=== PATIENT | male | born 1940 | race Caucasian/White ===

== ENCOUNTER → 2023-11-27 13:36 | Outpatient (REF) | payer OTHER, SELFPAY | LOC: WOUND 13:36 | PROVIDERS: ATTENDING PHYSICIAN Surgery; REFERRING PHYSICIAN Internal Medicine | DX: L97.412 Non-pressure chronic ulcer of right heel and midfoot with fat layer exposed (principal); M21.071 Valgus deformity, not elsewhere classified, right ankle; I73.9 Peripheral vascular disease, unspecified; I87.2 Venous insufficiency (chronic) (peripheral); R00.2 Palpitations; Z95.2 Presence of prosthetic heart valve; J84.112 Idiopathic pulmonary fibrosis; R73.09 Other abnormal glucose | CPT/HCPCS: 99204 ==

== ENCOUNTER → 2024-01-10 13:32 | Outpatient (REF) | payer OTHER, SELFPAY | LOC: RAD 13:32 | PROVIDERS: ATTENDING PHYSICIAN Podiatrist Foot Surgery; FAMILY PHYSICIAN Internal Medicine | DX: L97.512 Non-pressure chronic ulcer of other part of right foot with fat layer exposed (principal) | CPT/HCPCS: 93922; 93925 ==

== ENCOUNTER → 2024-01-18 14:06 | Outpatient (REF) | payer OTHER, SELFPAY | LOC: RAD 14:06 | PROVIDERS: ATTENDING PHYSICIAN Surgery; FAMILY PHYSICIAN Internal Medicine; REFERRING PHYSICIAN Orthopaedic Surgery | DX: L97.412 Non-pressure chronic ulcer of right heel and midfoot with fat layer exposed (principal); I87.2 Venous insufficiency (chronic) (peripheral) | CPT/HCPCS: 93971 ==

== ENCOUNTER → 2024-06-07 12:32 | Outpatient (REF) | payer OTHER, SELFPAY | LOC: RCS 12:32 | PROVIDERS: ATTENDING PHYSICIAN Internal Medicine Cardiovascular Disease; FAMILY PHYSICIAN Internal Medicine | DX: R00.1 Bradycardia, unspecified (principal); I49.3 Ventricular premature depolarization; Z95.2 Presence of prosthetic heart valve | CPT/HCPCS: 93306 ==

== ENCOUNTER 2024-09-23 18:19 | Inpatient (IN) | payer OTHER, SELFPAY ==
[2024-09-23] VITALS (9 sets, daily range): BP systolic 91–145; BP diastolic 54–78; PULSE 45–73; BMI 18.8
[2024-09-23 13:01] LABS: % Basophils 0.2 % (0-2); % Eosinophils 0.1 % (0-6); % Immature Granulocytes 0.6 % (0-0.5); % Lymphocytes 4.7 % (20.5-51.1); % Monocytes 10.4 % (1.7-9.3); Absolute Immature Granulocytes 0.1 10^3/uL (0-0.05); Absolute Lymphocytes 0.4 10^3/uL (1.2-3.4); Absolute Monocytes 0.9 10^3/uL (0.1-0.6); Absolute Neutrophils 7.4 10^3/uL (1.4-6.5); Hematocrit 37.6 % (39.0-52.0); Hemoglobin 12.9 g/dL (13.0-18.0); Mean Corp Hgb Conc. 34.3 g/dL (33.0-37.0); Mean Corpuscular Hgb 33.3 pg (27.0-31.0); Mean Corpuscular Volume 97.2 fL (80.0-94.0); Mean Platelet Volume 9.6 fL (7.4-10.4); Nucleated Red Blood Cells % 0 % (-); Platelet Count 159 10^3/uL (130-400); Red Blood Cell Count 3.87 10^6/uL (4.70-6.10); Red Cell Dist. Width 12.9 % (11.5-14.5); White Blood Cell Count 8.8 10^3/uL (4.8-10.8)
[2024-09-23 13:08] LABS: ALT (SGPT) 29 U/L (0-50); AST (SGOT) 68 U/L (17-59); Albumin 3.8 g/dl (3.5-5.0); Alkaline Phosphatase 157 U/L (38-126); Blood Urea Nitrogen 47 mg/dl (9-20); Calcium 9.2 mg/dl (8.4-10.2); Carbon Dioxide 27 mmol/L (22-30); Chloride 95 mmol/L (98-107); Estimated Creatinine Clearance 60 ml/min; Glucose 101 mg/dl (70-99); Potassium 4.4 mmol/L (3.5-5.1); Sodium 135 mmol/L (135-145); Total Bilirubin 0.9 mg/dl (0.2-1.3); Total Protein 7.4 g/dl (6.3-8.2); eGFR > 60.00
[2024-09-23 13:26] LABS: Urine Albumin Trace (Neg - Trace); Urine Bilirubin Negative (Negative); Urine Character Clear (Clear); Urine Color Yellow; Urine Glucose Negative (Negative); Urine Ketone 1+ (Negative); Urine Leukocyte Negative (Negative); Urine Nitrite Negative (Negative); Urine Occult Blood 2+ (Negative); Urine Specific Gravity 1.025 (<1.030); Urine Urobilinogen Negative (Neg - 1+)
[2024-09-23 13:37] LABS: Urine Red Blood Cell 16-20 /HPF (0-2)
--- NOTE | 2024-09-23 13:37 | ED.GENMED ---
History of Present Illness
General
Chief Complaint: Change in Mental Status
Source: patient and family (Nephew and his who are at the bedside)
Exam Limitations: none
Time Seen by Provider: 09/23/24 12:48
Nursing documentation reviewed up to this point in time: agreed with
History of Present Illness
History of Present Illness:
The patient is a pleasant 83-year-old man with a past medical history of Alzheimer's dementia who lives alone in an apartment. He is here with his nephew and his nephew's who reports that they check up on him at least every other day and
supply him with food. They report that he was never and has no children. They report that over the last 3 months, he is greatly declined, especially over the last few weeks. They report that he is fallen twice within 1 week. The first
fall was this past which was 5 days ago. They report that the second fall occurred sometime last night. They report that they visited him yesterday evening at around 7:30 PM. When they went to check up on him today around 11 AM, he had
fallen backwards in the bathtub. Is unclear how long he laid in the bathtub. The patient does not remember falling. The patient is a poor historian. Patient has bruising around his right forehead area and periorbital area which the family
reports happened from the fall 5 days ago. However, they report that he now has left shoulder pain and bruising of his left flank area which are new since the fall overnight. The patient is not on any anticoagulation. He is on 81 mg aspirin. The
patient reports a mild headache and back pain. He denies neck pain. He denies weakness and numbness of arms and legs. Family reports that he just seems overall more weak than normal. Denies pelvic and hip pain. Patient has bruising of his right
knee which the family reports occurred about 5 days ago. Patient has been able to walk as normal. Family reports that he uses a cane to get around. Additionally, the family reports that when they found him in the bathtub this morning, they
noticed blood at the back of the toilet seat as well as blood in his underwear. Patient also has a small appearing sacral ulcer that looks like it may have recently bled
Past History
Past History
ED Past Medical History: HTN
ED Past Surgical History: Cardiac and Other (Hernia repair)
Social History
Tobacco: Non-smoker
Alcohol: None
Drug: None
Personal: Single
Living: alone
Employment: Retired
Family History
Family History: Other
Review of Systems
Review of Systems
Allergies reviewed?: Yes
All Other Systems: ROS reviewed and negative except as documented in HPI and ROS
Constitutional: Reports weight loss and fatigue
EENT: Reports no symptoms
Respiratory: Reports no symptoms
Cardiac: Reports no symptoms
ABD/GI: Reports bloody stools (Possible rectal bleeding) and other (Left flank pain)
: Reports no symptoms
Musculoskeletal: Reports joint pain (Left shoulder pain), joint swelling (Ecchymotic and mild swelling of right patellar area), muscle stiffness and back pain
Skin: Reports other (Skin breakdown sacral decubitus area)
Neurological: Reports weakness (Generalized weakness)
Endocrine: Reports no symptoms
Hematologic/Lymphatic: Reports bruising (Multiple areas of bruising on posterior thoracic area, right knee and left flank)
Psychiatric: Reports no symptoms
Phy Exam
Physical Exam
Physical Exam:
Physical Exam
General: No apparent distress. Awake, alert and conversational. Ecchymotic right frontal scalp and right periorbital area
Neck: supple. no meningeal signs. Nontender C-spine. Dry mucous membrane
Heart: s1/s2 regular rate and rhythm, multiple ecchymoses of thoracic back. Mild thoracic spine tenderness
Lungs: no acute respiratory distress. clear bilaterally
Abdomen: Soft and nondistended. Left flank tenderness and left flank hematoma. On rectal exam, stool is pinkish and Hemoccult positive
Neuro: alert and oriented to self and place. Disoriented to year
Skin: Sacral decubitus ulcer which may have recently bled
Psychiatric: well kept. interactive and cooperative
Extremities: Full range of movement of upper and lower extremities. Pelvis and hips nontender. Mild ecchymoses of medial right patella but full range of movement of right knee. Mild discomfort when I fully extend left
shoulder.
Course
Orders/Labs/Results
Orders:
Orders
09/23/24 12:47
CBC/With Diff [Complete Blood Count/With Diff] Urgent
CMP [Comprehensive Metabolic Panel] Urgent
Creatine Phosphokinase Urgent
Comment: ADD ON
09/23/24 12:49
EKG [Electrocardiogram (*1)] Urgent
Reason for Study: Syncope
09/23/24 12:50
EKG- Treatment ONCE
09/23/24 12:52
CT Head W/o Iv Contrast Urgent
Comment:
Reason For Exam: change in mental status/ head injury
09/23/24 13:08
Electrocardiogram (*1) Urgent
Reason for Study: Fatigue / Weakness
EKG- Treatment ONCE
09/23/24 13:09
Urinalysis Reflex To Culture Urgent
Date Specimen was Collected: 09/23/24
Time Specimen was Collected: 13:08
Urine Microscopic Reflex Cult Urgent
09/23/24 13:37
CT Chest/abd/pel W Iv Cont Urgent
Reason For Exam: fall backwards into tub, thoracic pain
09/23/24 13:39
0.9% Sodium Chloride 1000 ml [Nss] 1,000 ml IV BOLUS
09/23/24 13:40
CR Shoulder, Trauma - Left Urgent
Reason For Exam: pain, fall
09/23/24 13:53
Knee, Right 4 or More Views [CR Knee- Right 4 Or More View*] Urgent
Comment:
Reason For Exam: r patella pain
09/23/24 13:54
Add On- LAB Urgent
Tests Added?: total CK
09/23/24 17:39
Admit/Transfer Patient As Directed
Co-Sign Provider:
Level of Care: Inpatient admission
Assign to:: Medical/Surgical
Physician / Group: Azeb
Diagnosis: Rhabdo
Reason for Hospitalization: IVFs
Expected length of stay greater than two midnights?: Yes
ELOS- Estimated Length of Stay in days: 3
I certify the patient meets the requirements for IP care: Yes
PRN Pain Medication Management As Directed
May give lesser potent ordered pain med per pt: Yes
preference::
Protocol:: Medication orders for pain may be administered in a
manner that supports deferring to patient preference
when the pt is:
- Requesting an ordered lesser potent pain medication.
Least to most potent pain medications are defined
as: acetaminophen < NSAID < tramadol < opioids
(morphine, oxycodone, hydromorphone).
- Requesting a lesser dose of the same medication IF
ORDERED.
- Requesting a less intrusive route of administration
if both routes are prescribed by the provider (PO <
IV).
09/23/24 17:40
Code Status As Directed
Resuscitation Status: Do not resuscitate
Reached after discussion with pt or family/Healthcare POA: Yes
DNR Bracelet Application ONCE
Abnormal Lab Results
09/23/24 09/23/24
12:47 13:09
RBC 3.87 L 10^6/uL
(4.70-6.10)
Hgb 12.9 L g/dL
(13.0-18.0)
Hct 37.6 L %
(39.0-52.0)
MCV 97.2 H fL
(80.0-94.0)
MCH 33.3 H pg
(27.0-31.0)
Abs Immat Gran (auto) 0.1 H 10^3/uL
(0-0.05)
Absolute Neuts (auto) 7.4 H 10^3/uL
(1.4-6.5)
Absolute Lymphs (auto) 0.4 L 10^3/uL
(1.2-3.4)
Absolute Monos (auto) 0.9 H 10^3/uL
(0.1-0.6)
Immature Gran % 0.6 H %
(0-0.5)
Neutrophils % 84.0 H %
(42.2-75.2)
Lymphocytes % 4.7 L %
(20.5-51.1)
Monocytes % 10.4 H %
(1.7-9.3)
Chloride 95 L mmol/L
(98-107)
BUN 47 H mg/dl
(9-20)
Glucose 101 H mg/dl
(70-99)
AST 68 H U/L
(17-59)
Alkaline Phosphatase 157 H U/L
(38-126)
Creatine Kinase 858 H U/L
(55-170)
Urine Ketones 1+ A
(Negative)
Ur Occult Blood Reflex 2+ A
(Negative)
Urine RBC 16-20 A /HPF
(0-2)
Urine Bacteria (Reflex) Few A
(Negative)
09/23/24 12:47
09/23/24 12:47
Vital Signs
Initial and Last Documented VS:
Initial Vital Signs
Temp Pulse Resp BP Pulse Ox
97.0 F 78 18 126/54 98
09/23/24 12:24 09/23/24 12:24 09/23/24 12:24 09/23/24 12:24 09/23/24 12:24
Last Documented Vital Signs
Temp Pulse Resp BP Pulse Ox
97.0 F 72 16 132/65 97
09/23/24 12:24 09/23/24 18:30 09/23/24 18:30 09/23/24 18:00 09/23/24 17:35
MDM/Problems Addressed
Differential Diagnosis Includes:
Acute rhabdomyolysis, acute dehydration, intracranial subdural hematoma, UTI
MDM/Problems Addressed:
Patient presents with acute on chronic generalized weakness and cognitive decline.
Chronic conditions affecting care:
Alzheimer's dementia
Acute Exacerbation and/or Progression of Chronic Illness:
Patient may have progression of chronic Alzheimer's dementia
Acute Exacerbation and/or Progression of Chronic Illness: Other (Alzheimer's dementia)
*Radiology
Radiology exam reviewed: preliminary read by ED provider (Right knee x-ray reviewed by me. No acute fracture seen by me of right knee. Left shoulder x-ray reviewed by me. No acute fracture of left shoulder seen by me) and radiology read reviewed
*Pulse Oximetry
Patient hypoxic: no
*EKG
Interpreted by ED Provider?: Yes
Interpretation: abnormal
Comparison EKG: no comparison EKG present
Rate: normal
Rhythm: sinus and PVC's
Elmo: left axis deviation
QRS Pattern: normal QRS
Ischemia: non-specific ST changes
*Parking Technician Interpretation
Rate: normal
Interpretation: normal
Rhythm: sinus
*Critical Care Note
Total Time (30-74mins, 75-104mins- exclusive of procedures): Not Applicable
ED Attending Note
-
Portions of this chart may have been created with voice recognition software.� Occasional wrong word or��sound alike� substitutions may have occurred due to the inherent limitations of voice recognition software.
Discharge Plan
Departure
Patient Disposition: Admit
Date of Disposition: 09/23/24
Time of Disposition: 16:46
Admit to: Med/Surg
Presentation/result/management discussed w/ accepting MD/DO: Hospitalist
Patient with high blood pressure during this ER visit?: Yes
Condition: Good
Covid-19: Not Applicable
Discharge Problem:
Adult failure to thrive, Frequent falls, Possible GI bleed, Compression fracture of thoracic vertebra, Acute rhabdomyolysis
Interventions
Interventions:
*Risk Screen - Suicide Last Done: 09/23/24 12:24
*General Assessment Last Done: 09/23/24 12:24
*Neglect/Abuse Screening Last Done: 09/23/24 12:24
*ED COVID-19 Vaccine History Last Done: 09/23/24 12:37
ED- Neurological Assessment Last Done: 09/23/24 12:37
ED- Cardiac Assessment Last Done: 09/23/24 12:37
[2024-09-23 13:38] LABS: Urine Bacteria Few (Negative)
[2024-09-23] MEDS: NSS 1000 IV ×2 (14:13→20:41)
[2024-09-23 14:17] LABS: Creatine Phosphokinase 858 U/L (55-170)
--- NOTE | 2024-09-23 17:46 | HPS.HSE ---
Family Physician
-
Family Physician: Ehsan Addison
Chief Complaint
-
Fall
History of Present Illness
Patient is an 83 y/o male past medial history of pulmonary fibrosis, coronary artery calcification, hypertension, hyperlipidemia and Alzheimer's Dementia who presents following a fall. Patient is unable to provide any history therefore history is
obtained from family at the bedside. Family notes patient has had a significant decline over the past few weeks. They spend most of the day with the patient yesterday. They called later in the evening around 8PM and patient was in his usual
state. They called to check on him this morning around 10AM this morning, and he didn't answer. They arrived at the house around 11AM and found him lying in the bathtub. They noted a small amount of blood on his underwear and the back of the
toilet. Family notes patient also had a fall on as well which resulting in bruising to his right forehead/temporal region.
Medical History
Past Medical History
Past Medical History: Reports Other
Additional Past Medical History:
Alzheimer's Dementia
Idiopathetic Pulmonary Fibrosis
Coronary Artery Calcification
Essential Hypertension
Hyperlipidemia
BPH
Past Surgical History: Reports Other
Additional Past Surgical History:
Transcatheter Aortic Valve Replacement
Hernia Repair
Open Heart Surgery following punctured pericardium during cardiac catheterization
Social History
Tobacco: Non-smoker
Alcohol: None
Living: Alone
Family History
Family History: Not pertinent
Allergies / Home Medications
Allergies reflects when Allergies were last updated in [employer]..
Home Medications with original date entered in [employer].
Allergy/Medication List:
Allergies
Allergy/AdvReac Type Severity Reaction Status Date / Time
Penicillins Allergy Unknown Verified 09/23/24 12:24
Home Medications
aspirin 81 mg tablet,delayed release 81 mg PO DAILY Blood Clot Prevention/Tx 07/24/23
cholecalciferol (vitamin D3) 25 mcg (1,000 unit) tablet (Vitamin D3) 25 mcg PO DAILY Supplement 07/24/23
pravastatin 20 mg tablet 20 mg PO DAILY High Cholesterol 07/24/23
Prevagen 1 cap PO DAILY 09/23/24
therapeutic multivitamin 1 tab PO DAILY 09/23/24
Review of Systems
-
Unable to obtain full review of systems at this time due to: Dementia
Physical Exam
Vital Signs
Vital Signs
Temp Pulse Resp BP Pulse Ox
97.0 F 76 26 137/78 98
09/23/24 12:24 09/23/24 14:45 09/23/24 14:45 09/23/24 14:12 09/23/24 14:15
Physical Exam
General: Comfortable and Conversant
HEENT: Anicteric and Other (Old bruising right forehead/temporal area)
Respiratory: Other (Fine rales throughout)
Cardiac: S1/S2 and Regular Rhythm
GI: Soft and Non Tender
Musculoskeletal: No Clubbing, No Cyanosis and No Edema
Skin: Warm, Dry and Other (Bruising left shoulder blade, and right knee)
Neuro: Awake and Alert; No Oriented (After several attempts patient was able to tell me he is at [facility]; However he told me the year was 2015 and identified 'the kam from [place]' as the president)
Psych: Calm
Laboratory Results
-
09/23/24 12:47
09/23/24 12:47
Laboratory Results
Total Bilirubin 0.9 mg/dl (0.2-1.3) 09/23/24 12:47
AST 68 U/L (17-59) H 09/23/24 12:47
ALT 29 U/L (0-50) 09/23/24 12:47
Alkaline Phosphatase 157 U/L (38-126) H 09/23/24 12:47
Data Reviewed
-
Lab Data: Labs Reviewed by me
Impression/Plan
-
Frequent Falls with Mild Rhabdomyolysis
-Continue IVFs
-Recheck CPK in AM
-Check Orthostatic VS
-Consult PT/OT
'Blood in Underwear'
-ED staff noted small sacral wound which appeared to have bleed recently. This is the likely source
-ED staff also noted pink stool which was heme-positive
-Hold on GI consult for now
-Monitor Hgb
-Heme-Test Stool
Alzheimer's Dementia
-Patient likely require more help at home or higher level of care
-Consult Case Management
-Monitor for mood/behavior changes during hospitalization
Idiopathetic Pulmonary Fibrosis
-Stable
Coronary Artery Calcification
-Continue aspirin
Hyperlipidemia
-Continue pravastatin
BPH
-Flomax recently stopped by PCP
-Monitor for retention
DVT proph: SCDs
Code Status: DNR
--- NOTE | 2024-09-23 18:36 | W.PN.UPDATE ---
Update Note
Progress Note Update
This is an addendum to the H&P written by Sahra Garcia on 09/23/2024.� Patient seen and examined independently with PA.
83-year-old male past medical history of aortic valve replacement, cardiac catheterization complicated by punctured pericardium, Alzheimer's dementia, hypertension, pulmonary fibrosis, BPH, hyperlipidemia, presenting after being found in the bathtub
today.� He has fallen twice in the past week.� He has been having progressive memory impairment over the past several months.
He was also noted to have blood in his underwear on the toilet today.� On rectal examination by ER he had pinkish stool was Hemoccult positive.� He has small sacral decubitus ulcer.
Vital signs unremarkable.� Labs show creatinine kinase of 858.� Labs otherwise unremarkable.� Urinalysis unremarkable.� IV fluids.� Likely worsening falls and memory impairment from worsening dementia.�
Check orthostatic vital signs.� Wound care consulted.� Monitor for further rectal bleeding and anemia.� If further bleeding and anemia will require GI.� Wound care consulted.� PT/OT.
[2024-09-24 06:00] VITALS: BMI 18.2
[2024-09-24 08:10] VITALS: BP 127/68
[2024-09-24] MEDS: PRAVACHOL 20 MG PO (08:13)
[2024-09-24] MEDS: ASPIR LOW (ENTERIC COATED) 81 MG PO (08:13)
--- NOTE | 2024-09-24 08:37 | W.PN.HOSP.TC ---
Today's Communication/Plan
-
Echocardiogram with worsened MR -- consult cardiology
Pulm consult given RV dilation on echo
CPK improved with IV fluids
Dietary and speech consultations
Assessment / Plan
Assessment / Plan
Physical Exam
General: Not in acute distress
HEENT: Normocephalic
Respiratory: Fine rales bilaterally
Cardiac: S1/S2 and Regular Rhythm
GI: Soft and Non Tender. Positive bowel sounds.
Musculoskeletal: No Cyanosis and No Edema
Skin: Warm, Dry
Neuro: Awake and Alert; Confused.
Psych: Calm

CT Chest/abd/pel W Iv Cont (as per radiologist's report)
'IMPRESSION:
1. Trace left pleural effusion.
2. Mild T10 and T12 compression fractures, both new from 04/05/2023 and likely acute/subacute. Recommend correlation for any point tenderness in this region.
3. No other significant acute abnormality identified in the chest, abdomen or pelvis, as described above. Stable changes of chronic interstitial lung disease.
4. Moderate diffuse colonic stool burden may reflect constipation.'
Echocardiogram (as per linderman operator's report)
'CONCLUSIONS
Normal left ventricular size and systolic function without regional wall motion
abnormalities. LVEF 60-65%.
Right ventricle is mildly dilated with normal systolic function.
Biatrial enlargement.
Bileaflet mitral valve prolapse with moderate mitral regurgitation.
Well-seated TAVR with normal function (peak/mean 19/8 mmHg).
Mild to moderate tricuspid regurgitation. Estimated PASP 44 mmHg.
Interatrial septum bowed to the right consistent with elevated left atrial
pressure.
Compared to prior echocardiogram on 06/07/2024, mitral regurgitation has
increased in severity. It was previously mild to moderate and is now solidly
moderate. Aortic valve gradients are stable. PASP has increased from 28 mmHg
to 44 mmHg. There is now evidence of elevated left atrial pressure.'

Assessment/Plan
83-year-old male past medical history of aortic valve replacement, cardiac catheterization complicated by punctured pericardium, Alzheimer's dementia, hypertension, pulmonary fibrosis, BPH, hyperlipidemia, presented after being found in the bathtub.
He was reported to have fallen twice in the past week. He has been having progressive memory impairment over the past several months.
He was also noted to have blood in his underwear on the toilet today. On rectal examination by ER he had pinkish stool was Hemoccult positive. He has small sacral decubitus ulcer.
Vital signs unremarkable. Labs show creatinine kinase of 858. Labs otherwise unremarkable. Urinalysis unremarkable. IV fluids. Likely worsening falls and memory impairment from worsening dementia.
Check orthostatic vital signs. Wound care consulted. Monitor for further rectal bleeding and anemia. If further bleeding and anemia will require GI. Wound care consulted. PT/OT.
Frequent Falls with Mild Rhabdomyolysis
Concern for Orthostatic Hypotension -- likely positive with significant drop between supine and sitting positions
-Patient was given intravenous fluids
-Recheck CPK in AM
-Checked Orthostatic VS -- likely positive with significant drop between supine and sitting positions
-Consult PT/OT
-Echo noted, as above
-Tele
'Blood in Underwear'
-ED staff noted small sacral wound which appeared to have bleed recently. This is the likely source
-ED staff also noted pink stool which was heme-positive
-Hold on GI consult for now
-Monitor Hgb
-Heme-Test Stool
Mild RV Dilation on September 2024 Echocardiogram
-Possibly for pulmonary fibrosis
-Consult pulmonary, appreciate evaluation and recommendations
Biatrial Enlargement
Mitral Regurgitation
Elevated left atrial pressure
-Worsened on September 2024 compared to previous
-Consult cardiology, appreciate their evaluation and recommendations
History of TAVR
History of cardiac catheterization complicated by punctured pericardium
Constipation on CT Imaging from September 2024 Hospitalization
-Bowel regimen: Miralax daily
-Dulcolax suppository once now
Macrocytic Anemia
Thrombocytopenia
-Monitor CBC
-Check iron studies, vitamin B12 level
Compression Fractures on CT Imaging from September 2024 Hospitalization
-PT/OT
Alzheimer's Dementia
-Patient likely require more help at home or higher level of care
-Consult Case Management
-Monitor for mood/behavior changes during hospitalization
Idiopathetic Pulmonary Fibrosis
-Stable
Coronary Artery Calcification
-Continue aspirin
Hypertension
Hyperlipidemia
-Continue pravastatin
BPH
-Flomax recently stopped by PCP
-Monitor for retention
History of Asymptomatic Hyponatremia
History of Total knee arthroplasty
History of likely osteomyelitis of right fifth toe/surrounding cellulitis
History of MRSA
DVT proph: SCDs and Lovenox.
Code Status: DNR
Anticipated Discharge: > 48 hours
Subjective/Interval History
-
Date of Service: September 24, 2024
Patient was seen and examined. Patient appeared confused, and did not want to eat, as per patient's nurse.
Objective Data
-
Labs:
Laboratory Results
09/24/24
07:57
WBC Pending
Hgb Pending
Hct Pending
Plt Count Pending
Sodium Pending
Potassium Pending
Chloride Pending
Carbon Dioxide Pending
BUN Pending
Creatinine Pending
Glucose Pending
Calcium Pending
Vital Signs:
Vital Signs
Temp Pulse Resp BP Pulse Ox
98.1 F 64 17 127/68 94
09/24/24 08:10 09/24/24 08:10 09/24/24 08:10 09/24/24 08:10 09/24/24 08:10
I&O
09/23/24 09/24/24 09/25/24
06:59 06:59 06:59
Intake Total 1120 / 1120
Output Total 600 / 600
Balance 520 / 520
[2024-09-24 08:51] LABS: Hematocrit 34.9 % (39.0-52.0); Mean Corp Hgb Conc. 34.4 g/dL (33.0-37.0); Mean Corpuscular Hgb 33.3 pg (27.0-31.0); Mean Corpuscular Volume 96.9 fL (80.0-94.0); Mean Platelet Volume 9.4 fL (7.4-10.4); Platelet Count 129 10^3/uL (130-400); Red Cell Dist. Width 12.8 % (11.5-14.5); White Blood Cell Count 7.5 10^3/uL (4.8-10.8)
[2024-09-24 09:09] LABS: Blood Urea Nitrogen 37 mg/dl (9-20); Calcium 8.5 mg/dl (8.4-10.2); Carbon Dioxide 24 mmol/L (22-30); Chloride 101 mmol/L (98-107); Creatine Phosphokinase 411 U/L (55-170); Estimated Creatinine Clearance 79 ml/min; Glucose 83 mg/dl (70-99); Magnesium 1.7 mg/dl (1.6-2.3); Phosphorus 3.4 mg/dl (2.5-4.5); Potassium 4.2 mmol/L (3.5-5.1); Sodium 134 mmol/L (135-145); eGFR > 60.00
[2024-09-24 10:40] VITALS: BP 143/64; BP 145/70; PULSE 75; O2SAT 90
[2024-09-24 10:54] VITALS: BP 143/54
[2024-09-24 11:43] VITALS: BMI 18.2
--- NOTE | 2024-09-24 11:46 | WOUNDNOTE ---
L MEDIAL LOWER LEG
--- NOTE | 2024-09-24 11:47 | WOUNDNOTE ---
R SIDE OF FACE
--- NOTE | 2024-09-24 11:50 | WOUNDNOTE ---
WO RN note: Patient admitted with fall and failure to thrive.
See H&P for complete history.
PMH: sacral PI's, b/l knee replacements, Alzheimers, HTN, valve repair.
Wound Location and type/assessment: Patient admitted with: cluster of suspected stage 2 vs 3 PI on inner buttocks. Patient assessed along with PT who attempted to get patient to ambulate to chair. Patient challenging PT and refused walking to
chair. Able to stand up for assessment of buttocks but patient tried to bat my hand away when changing dressing. Nurse reports patient can turn self in bed but unsure if stays on sides.
Appetite: Fair
Pressure redistribution devices in place:Called Bed tech to switch bed to [facility] air bed while pt down at test.
Plan: Inner Buttocks: cleaned with saline, smear of honey gel(to start tomorrow) to open ulcers followed by silicone foam change daily. Called [facility] for honey gel and brought to .
Will confirm orders with hospitalist and updated nurse.
Updated care plan and will follow as needed.
Note to case management of equipment requested for discharge: air mattress if SNF.
Recommend follow up at wound care center upon discharge.
--- NOTE | 2024-09-24 12:34 | CM ---
CM reviewed chart, patient with confusion, call placed to patients Wally dorado, to complete initial assessment. Patient resides independently in an apartment, nephew and nephews will check on patient regularly. Per nephew, patient moved to
[facility] [address] from [place], has previously been two SNF in [place] after knee replacements, unsure where. Patients PCP Ehsan Addison, pharmacy [facility]. Per nephew, patient has been falling more, cognitively declining. Nephew agreeable to rehab
for patient, would like patient to return home after rehab with services. Wally requesting referral to [facility], requesting additional facilities emailed to him to review with family, will email to [email or web address]. CM explained once facility
found, will need insurance authorization, will need to check if [facility] accepts patients insurance. CM will continue to follow for all discharge planning needs.
Plan; SNF pending accepting facility, will need insurance auth.
[2024-09-24 15:24] VITALS: BP 104/55
[2024-09-24] MEDS: DULCOLAX 5 MG PO (16:41)
[2024-09-24] MEDS: MIRALAX 17 GRAMS PO (16:41)
--- NOTE | 2024-09-24 17:17 | CON.CAR ---
Addendum entered and electronically signed by Shiva Son MD 09/24/24 17:42:
I saw and examined the patient.
The BOW MAKER CUSTOM's note was reviewed and I agree with the note.
Comment:
83-year-old male (formerly followed by Dr. Ferro, now following with Dr. Dueñas), with coronary artery calcification, pulmonary fibrosis, hypertension, dyslipidemia, severe aortic stenosis s/p TAVR, MVP with mitral regurgitation, and
Alzheimer's dementia who presented after a fall and received IV fluids for rhabdo myolysis. We were consulted for progression of mitral regurgitation (previously mild to moderate, now moderate) on today's echo. PASP has also increased to 45 mmHg
from 28 mmHg. On interview he is confused but does not note any lower extremity edema or shortness of breath. Exam is notable for regular rate and rhythm with a soft systolic murmur. He has no lower extremity edema, lungs are clear to
auscultation bilaterally, and he has no JVD. Labs are notable for creatinine 0.6 and sodium 134. Telemetry reveals PVCs with occasional bigeminy. He had mildly positive orthostatic vital signs earlier today. We will check a full set of
orthostatics. He appears euvolemic at this time and I would not recommend any diuresis. I suspect that as his fluid reequilibrated's, his PASP will come down and MR will decrease. He already has follow-up scheduled with our office on 10/15/[address] Dueñas. Cardiology will follow on an as-needed basis during this admission. Please reach out with further questions or concerns.
Original Note:
Consultation
Consultation Request
Date/Time Consultation Requested: 09/24/2024 16:30
Date/Time Consultation Performed: 09/24/2024 16:50
Requesting Provider: Dr. Rodriguez
Performing Provider: SANDEEP Silvestre for Dr. Son
Reason for Consultation: Mitral regurgitation
Medical History
-
Chief Complaint: Fall
History of Present Illness:
Milly Dowell is an 83-year-old male (formerly followed by Dr. Ferro, now following with Dr. Dueñas), with coronary artery calcification, pulmonary fibrosis, hypertension, dyslipidemia, severe aortic stenosis s/p TAVR, MVP with mitral
regurgitation, and Alzheimer's dementia who presented after a fall. He has had a significant decline over the past 3-4 weeks. He has had multiple falls. This admission was prompted by his family finding him lying in the bathtub. Last week, he
was found on the floor of his bedroom. Per his nephew the voices told him to lay down. He denies chest pain, shortness of breath, and dizziness at the time of this consultation. He he is fairly confused on exam.
Past Medical History
Past Medical History: HTN, Hypercholesterolemia, Valvular Disease (Serial stenosis s/p TAVR, MVP with MR), Psychiatric (Alzheimer's dementia) and Other (Pulmonary fibrosis)
Past Surgical History: Orthopedic and Other (Open heart surgery after perforation following EP procedure [2001])
Social History
Tobacco: Non-Smoker
Alcohol: None
Drug: None
Living: Alone
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
Family History
Family History: Unable to Obtain
Allergies / Home Medications
Allergy/AdvReac Type Severity Reaction Status Date / Time
Penicillins Allergy Unknown Verified 09/23/24 12:24
�Medication �Instructions �Recorded �Confirmed �Type
aspirin 81 mg tablet,delayed 81 mg PO DAILY Blood Clot 07/24/23 09/23/24 History
release Prevention/Tx
cholecalciferol (vitamin D3) 25 25 mcg PO DAILY Supplement 07/24/23 09/23/24 History
mcg (1,000 unit) tablet (Vitamin
D3)
pravastatin 20 mg tablet 20 mg PO DAILY High Cholesterol 07/24/23 09/23/24 History
Prevagen 1 cap PO DAILY 09/23/24 09/23/24 History
therapeutic multivitamin 1 tab PO DAILY 09/23/24 09/23/24 History
Review of Systems
-
Unable to obtain full review of systems at this time due to: Dementia
Physical Exam
Vital Signs
Temp Pulse Resp BP Pulse Ox
97.9 F 74 16 104/55 96
09/24/24 15:24 09/24/24 15:24 09/24/24 15:24 09/24/24 15:24 09/24/24 15:24
Lab Results
09/24/24 07:57
09/24/24 07:57
Physical Exam
General: Well Developed and No Apparent Distress
HEENT: Other (Bruising to right temporal area)
Respiratory: Clear and Non Labored Respirations
Cardiac: S1/S2, Regular Rhythm and Murmur (III/)
Breast: Deferred by me
GI: Soft, Non Tender, Non Distended and Normal Bowel Sounds
Rectal: Deferred by Provider
Genito-urinary: No Costovertebral Tender
Musculoskeletal: No Clubbing, No Cyanosis and No Edema
Skin: Warm and Dry
Neuro: Awake, Alert and Oriented (Himself and place)
Hematologic/Lymphatic: No Lymphadenopathy
Psych: Other (Restless)
Impression / Plan
-
BACKGROUND: 83M with coronary artery calcification, pulmonary fibrosis, hypertension, dyslipidemia, severe aortic stenosis s/p TAVR, MVP with mitral regurgitation, and Alzheimer's dementia who presented after a fall. He has had a significant
decline over the past 3-4 weeks. Cardiology has been consulted for worsened MR on TTE.
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
IMPRESSION/PLAN:
Multiple falls with mild rhabdomyolysis, per primary
-Consider orthostatic vital signs, last evening's vitals do not have a standing blood pressure
Worsened Alzheimer's dementia with hallucination, per primary service
MVP with moderate mitral regurgitation
-He does not appear volume overloaded on exam
-Denies shortness of breath
Idiopathic pulmonary fibrosis with bronchiectasis, PASP 44 mmHg on TTE (increased from 28 mmHg)
Severe aortic stenosis, s/p TAVR (Grecia, 2019), stable on most recent echocardiogram
Sinus bradycardia, not on AV mariam agents
Coronary artery calcification, on aspirin and pravastatin
EP study, complicated by perforation, led to emergent open heart surgery (Grecia, 2001)
SUBJECTIVE:
As above.
DATA:
Transthoracic echocardiogram, 09/24/2024:
CONCLUSIONS
Normal left ventricular size and systolic function without regional wall motion
abnormalities. LVEF 60-65%.
Right ventricle is mildly dilated with normal systolic function.
Biatrial enlargement.
Bileaflet mitral valve prolapse with moderate mitral regurgitation.
Well-seated TAVR with normal function (peak/mean 19/8 mmHg).
Mild to moderate tricuspid regurgitation. Estimated PASP 44 mmHg.
Interatrial septum bowed to the right consistent with elevated left atrial
pressure.
Compared to prior echocardiogram on 06/07/2024, mitral regurgitation has
increased in severity. It was previously mild to moderate and is now solidly
moderate. Aortic valve gradients are stable. PASP has increased from 28 mmHg
to 44 mmHg. There is now evidence of elevated left atrial pressure.
Data Reviewed
-
EKG: Report Reviewed by me (Sinus rhythm with PVCs, rate 64)
Medical Tests (Nuc Med, Echo etc): Report Reviewed by me (Prior echocardiogram as above)
Labs: Labs Reviewed by me
Old Records: Reviewed
[2024-09-24] MEDS: LOVENOX 40 MG SC (17:34)
[2024-09-24 19:00] VITALS: BP 105/53
[2024-09-24 23:10] VITALS: BP 141/72
[2024-09-25] VITALS (9 sets, daily range): BP systolic 102–160; BP diastolic 54–86; PULSE 43–58; O2SAT 96; BMI 18.3
--- NOTE | 2024-09-25 07:54 | W.PN.HOSP.TC ---
Today's Communication/Plan
-
Appreciate pulmonary evaluation
PT/OT
SNF placement pending
Assessment / Plan
Assessment / Plan
Physical Exam
General: Not in acute distress
HEENT: Normocephalic
Respiratory: Fine rales bilaterally
Cardiac: S1/S2 and Regular Rhythm
GI: Soft and Non Tender. Positive bowel sounds.
Musculoskeletal: No Cyanosis and No Edema
Skin: Warm, Dry
Neuro: Awake and Alert; Confused.
Psych: Calm

CT Chest/abd/pel W Iv Cont (as per radiologist's report)
'IMPRESSION:
1. Trace left pleural effusion.
2. Mild T10 and T12 compression fractures, both new from 04/05/2023 and likely acute/subacute. Recommend correlation for any point tenderness in this region.
3. No other significant acute abnormality identified in the chest, abdomen or pelvis, as described above. Stable changes of chronic interstitial lung disease.
4. Moderate diffuse colonic stool burden may reflect constipation.'
Echocardiogram (as per asphalt roller person's report)
'CONCLUSIONS
Normal left ventricular size and systolic function without regional wall motion
abnormalities. LVEF 60-65%.
Right ventricle is mildly dilated with normal systolic function.
Biatrial enlargement.
Bileaflet mitral valve prolapse with moderate mitral regurgitation.
Well-seated TAVR with normal function (peak/mean 19/8 mmHg).
Mild to moderate tricuspid regurgitation. Estimated PASP 44 mmHg.
Interatrial septum bowed to the right consistent with elevated left atrial
pressure.
Compared to prior echocardiogram on 06/07/2024, mitral regurgitation has
increased in severity. It was previously mild to moderate and is now solidly
moderate. Aortic valve gradients are stable. PASP has increased from 28 mmHg
to 44 mmHg. There is now evidence of elevated left atrial pressure.'

Assessment/Plan
83-year-old male past medical history of aortic valve replacement, cardiac catheterization complicated by punctured pericardium, Alzheimer's dementia, hypertension, pulmonary fibrosis, BPH, hyperlipidemia, presented after being found in the bathtub.
He was reported to have fallen twice in the past week. He has been having progressive memory impairment over the past several months.
He was also noted to have blood in his underwear on the toilet today. On rectal examination by ER he had pinkish stool was Hemoccult positive. He has small sacral decubitus ulcer.
Vital signs unremarkable. Labs show creatinine kinase of 858. Labs otherwise unremarkable. Urinalysis unremarkable. IV fluids. Likely worsening falls and memory impairment from worsening dementia.
Check orthostatic vital signs. Wound care consulted. Monitor for further rectal bleeding and anemia. If further bleeding and anemia will require GI. Wound care consulted. PT/OT.
Frequent Falls with Mild Non-Traumatic Rhabdomyolysis
Concern for Orthostatic Hypotension -- RESOLVED
-Patient was given intravenous fluids
-Recheck CPK in AM --> CPK improving
-PT/OT
-Echo noted, as above
-Tele monitor
'Blood in Underwear'
-ED staff noted small sacral wound which appeared to have bleed recently. This is the likely source
-ED staff also noted pink stool which was heme-positive
-Hold on GI consult for now
-Monitor Hgb -- has been stable
-Heme-Test Stool still pending
Mild RV Dilation on September 2024 Echocardiogram
-Possibly for pulmonary fibrosis
-Consult pulmonary, appreciate evaluation and recommendations
Biatrial Enlargement
Mitral Regurgitation
Elevated left atrial pressure
-Worsened on September 2024 compared to previous
-Consult cardiology, appreciate their evaluation and recommendations: patient does not look volume overloaded, regarding patient's echocardiogram, the change in his MR was relatively mild, probably from extra fluids from
rhabdomyolysis
-Echo will need to be rechecked echo again at his next visit with Dr. Dueñas in October 2024.
History of TAVR
History of cardiac catheterization complicated by punctured pericardium
Constipation on CT Imaging from September 2024 Hospitalization
-Bowel regimen: Miralax daily
-Dulcolax suppository given on 09/24/24
-Large bowel movement reported by nurse on 09/25/24
Macrocytic Anemia
Thrombocytopenia
-Monitor CBC
-Iron studies and Vitamin B12 unremarkable
Hematuria on Urinalysis
-Discussed via [facility] on 09/25/24, with urologist Dr. Carr who mentioned that this should be followed up outpatient, no need for inpatient urology evaluation
Compression Fractures on CT Imaging from September 2024 Hospitalization
-PT/OT
Alzheimer's Dementia
-Patient likely require more help at home or higher level of care
-Consult Case Management
-Monitor for mood/behavior changes during hospitalization
-Outpatient neuropsychological testing (if not already completed) to guide in therapeutic intervention.
Idiopathetic Pulmonary Fibrosis
-Stable
-Consulted pulmonary given RV dilation
Coronary Artery Calcification
-Continue aspirin
Hypertension
Hyperlipidemia
-Continue pravastatin
BPH
-Flomax recently stopped by PCP
-Monitor for retention
History of Asymptomatic Hyponatremia
History of Total knee arthroplasty
History of likely osteomyelitis of right fifth toe/surrounding cellulitis
History of MRSA
Underweight
DVT Prophylaxis: SCDs and Lovenox.
Diet/Speech: Regular Solids with Thin Liquids, as per speech
Code Status: DNR
Anticipated Discharge: 24 - 48 hours
Subjective/Interval History
-
Date of Service: September 25, 2024
Patient was seen and examined. He was confused but denied chest pain or shortness of breath.
Objective Data
-
Labs:
Laboratory Results
09/25/24
07:00
WBC Pending
Hgb Pending
Hct Pending
Plt Count Pending
Sodium Pending
Potassium Pending
Chloride Pending
Carbon Dioxide Pending
BUN Pending
Creatinine Pending
Glucose Pending
Calcium Pending
Vital Signs:
Vital Signs
Temp Pulse Resp BP Pulse Ox
97.7 F 70 18 152/74 95
09/25/24 03:00 09/25/24 03:00 09/25/24 03:00 09/25/24 03:00 09/25/24 03:00
I&O
09/24/24 09/25/24 09/26/24
06:59 06:59 06:59
Intake Total 1120 / 1120 600 / 600
Output Total 600 / 600 200 / 200
Balance 520 / 520 400 / 400
[2024-09-25 07:58] LABS: % Basophils 0.4 % (0-2); % Eosinophils 1.7 % (0-6); % Immature Granulocytes 0.7 % (0-0.5); % Lymphocytes 8.3 % (20.5-51.1); % Monocytes 14.8 % (1.7-9.3); % Neutrophils 74.1 % (42.2-75.2); Absolute Eosinophils 0.1 10^3/uL (0-0.7); Absolute Immature Granulocytes 0.1 10^3/uL (0-0.05); Absolute Lymphocytes 0.6 10^3/uL (1.2-3.4); Absolute Neutrophils 5.2 10^3/uL (1.4-6.5); Hematocrit 33.9 % (39.0-52.0); Hemoglobin 11.5 g/dL (13.0-18.0); Mean Corp Hgb Conc. 33.9 g/dL (33.0-37.0); Mean Corpuscular Hgb 33.2 pg (27.0-31.0); Mean Platelet Volume 9.3 fL (7.4-10.4); Nucleated Red Blood Cells % 0 % (-); Platelet Count 126 10^3/uL (130-400); Red Blood Cell Count 3.46 10^6/uL (4.70-6.10); Red Cell Dist. Width 12.9 % (11.5-14.5)
[2024-09-25 09:12] LABS: Blood Urea Nitrogen 35 mg/dl (9-20); Calcium 8.4 mg/dl (8.4-10.2); Carbon Dioxide 27 mmol/L (22-30); Chloride 98 mmol/L (98-107); Estimated Creatinine Clearance 79 ml/min; Glucose 86 mg/dl (70-99); Iron 58 ug/dl (49-181); Magnesium 1.6 mg/dl (1.6-2.3); Potassium 4.2 mmol/L (3.5-5.1); Sodium 134 mmol/L (135-145); eGFR > 60.00
[2024-09-25 09:21] LABS: Percent Saturation 25 % (20-50); Total Iron Binding Capacity 231 ug/dl (261-462)
--- NOTE | 2024-09-25 09:42 | CON.PUL ---
Consultation
Consultation Request
Date/Time Consultation Requested: 09/24/24
Date/Time Consultation Performed: 09/25/24
Performing Provider: Nitin
Reason for Consultation: ILD
Medical History
-
History of Present Illness:
Patient is an 83-year-old male with previous history of IPF, CAD, hypertension, hyperlipidemia with dementia presenting status post mechanical fall. He reports that he has had frequent falls in the past few weeks, is unable to ambulate
independently with a cane. He does not ambulate with a walker. He feels his mental status is declining as well. He does not feel any worsening shortness of breath, cough or wheezing. CT obtained indicating slight progression of his IPF but no
significant changes. He is currently 93% on room air. He has not required oxygen at home.
Admitted for workup of possible GI bleed, found down at home.
Past Medical History
Past Medical History: Other (See list below)
Social History
Tobacco: Non-smoker
Alcohol: None
Drug: None
Family History
Family History: Reviewed & Not Pertinent
Allergies / Home Medications
Allergies
Allergy/AdvReac Type Severity Reaction Status Date / Time
Penicillins Allergy Unknown Verified 09/23/24 12:24
Home Medications
�Medication �Instructions �Recorded �Confirmed �Last Taken �Type
aspirin 81 mg tablet,delayed 81 mg PO DAILY Blood Clot 07/24/23 09/23/24 07/23/23 History
release Prevention/Tx
cholecalciferol (vitamin D3) 25 25 mcg PO DAILY Supplement 07/24/23 09/23/24 07/23/23 History
mcg (1,000 unit) tablet (Vitamin
D3)
pravastatin 20 mg tablet 20 mg PO DAILY High Cholesterol 07/24/23 09/23/24 07/23/23 History
Prevagen 1 cap PO DAILY 09/23/24 09/23/24 Unknown History
therapeutic multivitamin 1 tab PO DAILY 09/23/24 09/23/24 Unknown History
Review of Systems
-
History Source: Patient
All other systems: Negative unless noted
Vitals / Labs / Diagnostic Testing
Vital Signs
Temp Pulse Resp BP Pulse Ox
97.7 F 70 18 152/74 95
09/25/24 03:00 09/25/24 03:00 09/25/24 03:00 09/25/24 03:00 09/25/24 03:00
Lab Data
09/25/24 07:00
09/25/24 07:00
Microbiology
09/24/24 06:26 Nose MRSA Screen - Final
No Methicillin Resistant Staphylococcus aureus isolated.
Diagnostic Testing:
Physical Exam
-
HEENT: Normocephalic, Anicteric and Moist Mucous Membranes
Cardiovascular: S1/S2 and Regular Rhythm
Respiratory: Rales and Non-Labored Respirations
GI: Soft, Non Distended and Non Tender
Neurology: Awake, Alert, Oriented and No Motor Deficits
Skin: Warm, Dry and Good Color
General: Comfortable, Poor Appetite and Other (NAD)
Assessment
-
Patient is an 83-year-old male with previous history of IPF, CAD, hypertension, hyperlipidemia with dementia presenting status post mechanical fall. He reports that he has had frequent falls in the past few weeks, is unable to ambulate
independently with a cane. He does not ambulate with a walker. He feels his mental status is declining as well. He does not feel any worsening shortness of breath, cough or wheezing. CT obtained indicating slight progression of his IPF but no
significant changes. He is currently 93% on room air. He has not required oxygen at home. We are consulted for history of IPF 09/25/24.
Status post mechanical fall
Melena, Hemoccult testing +
Mild anemia, acute blood loss
Hyponatremia, mild
Elevated CK, not consistent with rhabdo
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
Bronchiectasis without complication
IPF/Restrictive lung disease
Followed by Dr Taveras, last seen 09/2023
MVP
HTN
Dyslipidemia
Bradycardia/Frequent PVCs
Open heart surgery with pericardial injury 2019
Severe aortic stenosis s/p TAVR
IBS
Bilateral knee sx
3 hernia repairs
History of MRSA
Advancing dementia
Plan
No oxygen was needed on admission, currently saturating 93% on RA
Prior 6MWT completed in office showing no need back in Sep, he has not yet needed O2 at home w/ rest or with exertion
Can check home eval if needed
Prior history of lung disease is noted including IPF--last OP note reviewed:
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
He denied any prior history of smoking, dust exposure
6 minute walk test without hypoxemia
Pulmonary function test today does reveal moderate restriction and severely reduced diffusing capacity
Suspect patient has stable IPF findings, clinically large unchanged
CXR/CT obtained indicating slight progression of findings but not atypical >1 yr apart
Would reimage only if needed
Can resume outpatient neb treatment if needed, has been on PRN albuterol
Prior ECHO results are reviewed indicating stable findings, preserved EF
Severe s/p TAVR history
Cards eval obtained, proBNP not obtained
Progression of MR is noted
Weight loss noted, with poor appetite
Optimize nutrition
GIB noted, possibly
Hb 11 baseline 14
Iron panel normal, can eval as OP
Will need outpatient pulmonary evaluation in our office for PFTs and 6MWT
Reviewed with patient
PT/OT to assess his function, SNF placement would likely be beneficial
Discharge planning per team
Diagnostic Data
Chest X-Ray:
CT Scan: CAP 09/23/24- 1. Trace left pleural effusion.
2. Mild T10 and T12 compression fractures, both new from 04/05/2023 and likely acute/subacute. Recommend correlation for any point tenderness in this region.
3. No other significant acute abnormality identified in the chest, abdomen or pelvis, as described above. Stable changes of chronic interstitial lung disease.
4. Moderate diffuse colonic stool burden may reflect constipation.
CHEST 04/05/23- 1. 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 2. Nonspecific mildly prominent
mediastinal lymph nodes. 3. Cardiomegaly. 4. Prior TAVR. 5. Moderate coronary artery calcifications. 6. Borderline ectasia of the ascending thoracic aorta measuring 4.1 cm diameter.
Echo: 09/24/24- Normal left ventricular size and systolic function without regional wall motion abnormalities. LVEF 60-65%. Right ventricle is mildly dilated with normal systolic function. Biatrial enlargement. Bileaflet mitral valve prolapse with
moderate mitral regurgitation. Well-seated TAVR with normal function (peak/mean 19/8 mmHg). Mild to moderate tricuspid regurgitation. Estimated PASP 44 mmHg. Interatrial septum bowed to the right consistent with elevated left atrial pressure.
Compared to prior echocardiogram on 06/07/2024, mitral regurgitation has increased in severity. It was previously mild to moderate and is now solidly moderate. Aortic valve gradients are stable. PASP has increased from 28 mmHg to 44 mmHg. There is
now evidence of elevated left atrial pressure.
06/07/24- Normal left ventricular systolic function. LV ejection fraction is 55-60%. Posterior mitral valve prolapse. Mild/moderate mitral regurgitation. s/p TAVR. The peak/mean gradients across the valve are 20/10 mmHg. No aortic regurgitation is
seen. Mildly dilated right ventricle with normal systolic function. Mild/moderate tricuspid regurgitation. Normal PASP. Mildly dilated ascending aorta (4.1 cm).
Compared to 02/20/23: MR has improved from moderate to mild/moderate. Other findings stable.
PFT's: 09/2023- Pulmonary function test today does reveal moderate restriction and severely reduced diffusing capacity.
6 minute walk test without hypoxemia
Reports and relevant images were personally reviewed.
Total time spent on this consultation __77__ includes review of history, physical exam, medications, laboratory data, personal review of imaging, extensive review of outpatient records, discussion with care team and respiratory therapy.
[2024-09-25] MEDS: PRAVACHOL 20 MG PO (09:44)
[2024-09-25] MEDS: ASPIR LOW (ENTERIC COATED) 81 MG PO (09:44)
[2024-09-25] MEDS: MIRALAX 17 GRAMS PO (09:47)
[2024-09-25 09:58] LABS: Creatine Phosphokinase 222 U/L (55-170)
[2024-09-25 10:27] LABS: Vitamin B12 902 pg/ml (239-931)
--- NOTE | 2024-09-25 11:05 | PTOTSP ---
Speech Therapy Assessment
Oral pharyngeal swallow deemed wfl without overt signs of aspiration.
Patient presents with memory impairment and instances of word finding difficulty in conversation. He is grossly oriented x3 (month/year but not date) with poor short term recall. Score on Short Blessed Test indicates an impairment consistent with
dementia.
Recommend
1. Continue with current diet of regular solids and thin liquids.
2. Further cognitive communication assessment in next level of care and as able during acute stay.
3. Patient would benefit from neuropsychological testing (if not already completed) to guide in therapeutic intervention.
--- NOTE | 2024-09-25 11:22 | PN.CDI ---
CDI
- -
CDI:
Physician Documentation Request
Admit Date: 09/23/24 18:19
Dear Doctor Michael,
Please review the following and provide your response in the progress notes.
Clinical Indicators:
- 09/23 ER Physician 'fallen backwards in the bathtub. Is unclear how long he laid in the bathtub'
- 09/24 PN 'Frequent Falls with Mild Rhabdomyolysis'
- 2L IVF given
Laboratory Tests
09/23/24 09/24/24 09/25/24
12:47 07:57 07:00
Creatine Kinase 858 H 411 H D 222 H D
Please provide a diagnosis that supports the above lab abnormalities and evaluation/monitoring.
Traumatic rhabdomyolysis
Non-traumatic rhabdomyolysis
Other
Use of terms such as suspected, likely, concern for, or probable (associated with a specific diagnosis that is being evaluated, monitored, or treated as if it exists) are acceptable and can be coded in the inpatient setting, when documented at the
time of discharge.
Thank you,
Zach Bennett RN
CDI Specialist
Please use your independent medical judgment in providing your response.
--- NOTE | 2024-09-25 11:29 | PN.CDI ---
CDI
- -
CDI:
Physician Documentation Request
Admit Date: 09/23/24 18:19
Dear Doctor Michael,
Please review the following and provide your response in the progress notes.
Clinical Indicators:
Height: 5'10
Weight: 127lbs
BMI: 8.3
Other Clinical Notes: Texture Artist indicates underweight
If possible, please provide an associated diagnosis related to the abnormal BMI, such as:
Underweight
Cachectic
Other (please specify)
Use of terms such as suspected, likely, concern for, or probable (associated with a specific diagnosis that is being evaluated, monitored, or treated as if it exists) are acceptable and can be coded in the inpatient setting, when documented at the
time of discharge.
Thank you,
Zach Bennett RN
CDI Specialist
Please use your independent medical judgment in providing your response.
--- NOTE | 2024-09-25 11:58 | CM ---
Spoke with patients nephew Wally re additional facilities.
He was interested in [facility] [employer], updated him that [employer] is not contracted with [facility] and would need additional facilities.
Printout from [place] and [place] area left bedside.
Nephew on his way to the hospital and will notify CM once he has made selections.
Patient will require [employer] authorization.
Plan: Skilled rehab one medicably stable. bed available and auth obtained.
--- NOTE | 2024-09-25 12:06 | CM ---
Addendum entered by Mariah Ho 09/25/24 14:59:
Additional referrals sent via [facility].
Original Note:
Spoke with patients nephreji Wally re additional facilities.
He was interested in [facility], [place] [employer], updated him that [employer] is not contracted with [facility] and would need additional facilities.
Printout from [facility] and [facility] left bedside.
Nephew on his way to the hospital and will notify once he has made selections.
Patient will require [employer] authorization.
Plan: Skilled rehab once medicably stable, and once a bed available and auth obtained.
--- NOTE | 2024-09-25 13:56 | CON.NEURO ---
Consultation
Order
Date of Consultation: 09/25/24
Requesting Provider: Kasi Rodriguez MD
Reason for Consult: left arm weakness
Neurology Consultation Note.
CC: none
HPI:This is an 83-year-old man who presented to [facility] on 09/23/2024 with recurrent falls and encephalopathy.
According to EMR patient was found laying in the bathtub of his apartment.
Mr. Dowell endorses left shoulder pain and left arm weakness following the recent fall. He was unable to provide additional details surrounding his fall
No reports of headaches, change in vision, vertigo. The patient states that he has switched from a walker to a cane several months ago.
ER VS:[birth year], 80, afebrile, 98% on RA
EKG: NSR, QTc Int : 431 ms
PDMP: none
Labs: glucose�101, normal WBCs, hemoglobin�12.9, platelets�159�126, sodium�135�134, CK�858�222, UA�positive for ketones, RBCs, bacteria, normal b12
CT head-mild subcortical, deep, and periventricular white matter low-attenuation, compatible with changes of chronic small vessel ischemic disease.
PMH: dementia, idiopathic pulmonary fibrosis, HTN, DLP, moderate MR, IGT, Thrombocytopenia, BPH, diverticulosis, BMI 18
PSH: TAVR, Hernia Repair
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
FH:, not contributory to current presentation
All: PNC
ROS: Positive for left shoulder pain and left arm weakness
General: Very slim. Right frontal temporal ecchymosis
Cardio: Regular rate and rhythm without murmur. Extremities are without cyanosis or edema.
Neuro:
Mental Status: Alert, oriented to name not to month, year. Poor attention. Expressive> receptive aphasia. Follows simple requests intermittently. No hemineglect.
Cranial Nerves: Pupils are equally round and reactive to light. EOMs full. Blink to threat bilaterally no ptosis. No nystagmus. Face symmetric. Impaired l hearing AU. The palate elevated well. SCMs and traps 5/5. Tongue midline. Mild
dysarthria. Mild hypophonia
Motor: Pain related to left arm proximal weakness. Distal muscle groups appear to be intact
Reflexes: Bilateral grasp
Sensory: Impaired vibration at the toes ankles and knees. Limited exam due to poor attention
Coordination: No tremors myoclonic movements
Gait: deferred
Assessment and Plan:
I. Ambulatory dysfunction
II. Encephalopathy, likely neurodegenerative
III. Rhabdomyolysis
-Fall and delirium precautions
-Dysphagia evaluation
-PT
-Brain MRI wo chad
-CT cervical spine
-Please check TFTs
-Will obtain collateral history of patient's family
-SW consult
I personally reviewed all radiology and labs along with past medical records pertinent to current medical problems. Total time spent in patient care is 60 minutes.
Thank you for allowing us to participate in the care of this patient. We will continue to follow. Please do not hesitate to contact us with any questions or concerns.
Subjective/Objective
Subjective Data
Date of Service: September 25, 2024
Objective Data
Vital Signs
Temp Pulse Resp BP Pulse Ox
36.6 C 58 16 113/54 95
09/25/24 12:27 09/25/24 12:27 09/25/24 12:27 09/25/24 12:27 09/25/24 12:27
Lab Results
09/25/24 07:00
09/25/24 07:00
Sodium 134 mmol/L (135-145) L 09/25/24 07:00
Potassium 4.2 mmol/L (3.5-5.1) 09/25/24 07:00
BUN 35 mg/dl (9-20) H 09/25/24 07:00
Glucose 86 mg/dl (70-99) 09/25/24 07:00
Calcium 8.4 mg/dl (8.4-10.2) 09/25/24 07:00
Phosphorus 3.4 mg/dl (2.5-4.5) 09/24/24 07:57
Vitamin B12 902 pg/ml (239-931) 09/25/24 07:00
Patient Allergies
Penicillins Allergy (Verified 09/23/24 12:24)
Unknown
Medications
-
Active Medications
Generic Name Dose Route Start Last Admin
Trade Name Freq PRN Reason Stop Dose Admin
Acetaminophen 650 mg 09/23/24 19:26
Acetaminophen 325 Mg Tablet PO 10/21/24 19:25
Q4HPRN PRN
mild pain/ fever>100.5F
Aspirin 81 mg 09/24/24 08:00 09/25/24 09:44
Aspirin 81 Mg (Enteric Coated) Tablet PO 10/22/24 07:59 81 mg
DAILY CHRISTOPHER Administration
Enoxaparin Sodium 40 mg 09/24/24 18:00 09/24/24 17:34
Enoxaparin Sodium 40 Mg/0.4 Ml Syringe SC 10/22/24 17:59 40 mg
QPM CHRISTOPHER Administration
Polyethylene Glycol 17 grams 09/24/24 17:00 09/25/24 09:47
Polyethylene Glycol Powder 17 Grams Packet PO 10/22/24 16:59 17 grams
DAILY CHRISTOPHER Administration
Pravastatin Sodium 20 mg 09/24/24 08:00 09/25/24 09:44
Pravastatin 20 Mg Tablet PO 10/22/24 07:59 20 mg
DAILY CHRISTOPHER Administration
Sodium Chloride 0 flush 09/24/24 17:00
Sodium Chloride 0.9% (Flush) Syringe IV 10/22/24 16:59
PER PROTOCOL CHRISTOPHER
Home Medications
�Medication �Instructions �Recorded
aspirin 81 mg tablet,delayed 81 mg PO DAILY Blood Clot 07/24/23
release Prevention/Tx
cholecalciferol (vitamin D3) 25 25 mcg PO DAILY Supplement 07/24/23
mcg (1,000 unit) tablet (Vitamin
D3)
pravastatin 20 mg tablet 20 mg PO DAILY High Cholesterol 07/24/23
Prevagen 1 cap PO DAILY 09/23/24
therapeutic multivitamin 1 tab PO DAILY 09/23/24
Vital Signs and Labs
-
Vital Signs and Labs:
Vital Signs
Temp Pulse Resp BP Pulse Ox
36.6 C 58 16 113/54 95
09/25/24 12:27 09/25/24 12:27 09/25/24 12:27 09/25/24 12:27 09/25/24 12:27
Lab Results
09/25/24 07:00
09/25/24 07:00
Sodium 134 mmol/L (135-145) L 09/25/24 07:00
Potassium 4.2 mmol/L (3.5-5.1) 09/25/24 07:00
BUN 35 mg/dl (9-20) H 09/25/24 07:00
Glucose 86 mg/dl (70-99) 09/25/24 07:00
Calcium 8.4 mg/dl (8.4-10.2) 09/25/24 07:00
Phosphorus 3.4 mg/dl (2.5-4.5) 09/24/24 07:57
Vitamin B12 902 pg/ml (239-931) 09/25/24 07:00
Medications
-
Medications:
Generic Name Dose Route Start Last Admin
Trade Name Freq PRN Reason Stop Dose Admin
Acetaminophen 650 mg 09/23/24 19:26
Acetaminophen 325 Mg Tablet PO 10/21/24 19:25
Q4HPRN PRN
mild pain/ fever>100.5F
Aspirin 81 mg 09/24/24 08:00 09/25/24 09:44
Aspirin 81 Mg (Enteric Coated) Tablet PO 10/22/24 07:59 81 mg
DAILY CHRISTOPHER Administration
Enoxaparin Sodium 40 mg 09/24/24 18:00 09/24/24 17:34
Enoxaparin Sodium 40 Mg/0.4 Ml Syringe SC 10/22/24 17:59 40 mg
QPM CHRISTOPHER Administration
Polyethylene Glycol 17 grams 09/24/24 17:00 09/25/24 09:47
Polyethylene Glycol Powder 17 Grams Packet PO 10/22/24 16:59 17 grams
DAILY CHRISTOPHER Administration
Pravastatin Sodium 20 mg 09/24/24 08:00 09/25/24 09:44
Pravastatin 20 Mg Tablet PO 10/22/24 07:59 20 mg
DAILY CHRISTOPHER Administration
Sodium Chloride 0 flush 09/24/24 17:00
Sodium Chloride 0.9% (Flush) Syringe IV 10/22/24 16:59
PER PROTOCOL CHRISTOPHER
Home Medications
-
Home Medications
aspirin 81 mg tablet,delayed release 81 mg PO DAILY Blood Clot Prevention/Tx 07/24/23
cholecalciferol (vitamin D3) 25 mcg (1,000 unit) tablet (Vitamin D3) 25 mcg PO DAILY Supplement 07/24/23
pravastatin 20 mg tablet 20 mg PO DAILY High Cholesterol 07/24/23
Prevagen 1 cap PO DAILY 09/23/24
therapeutic multivitamin 1 tab PO DAILY 09/23/24
[2024-09-25] MEDS: LOVENOX 40 MG SC (17:27)
[2024-09-25 21:59] LABS: TSH Reflex To Free T4 1.41 uIU/ml (0.47-4.68)
[2024-09-26] VITALS (31 sets, daily range): BP systolic 75–148; BP diastolic 52–91; BMI 18.3; BMI 18.1
[2024-09-26] MEDS: TYLENOL 650 MG PO ×3 (03:22→20:16)
--- NOTE | 2024-09-26 03:45 | W.PN.UPDATE ---
Update Note
Progress Note Update
Pt new onset fever, 103.1, BP 100/66, HR 98, respirations 24, 88-90% on room, patient w/increased work of breathing. Placed on 3L NC, 02 sat 97%. Tylenol given for fever. Ordered 1L NSS @ 75 mls/hr, blood cx and am labs now.
--- NOTE | 2024-09-26 04:26 | PTCARENOTE ---
Addendum entered by Suzy Doran RN 09/26/24 04:29:
pt Ox1, confused, however can follow directions, asked pt if he felt ok, pt states 'I feel hot but I'm ok' pt only taking small sips of fluids. IV NSS hung @75cc/hr.
Original Note:
0330 pt vs 103.1 98-24-100/66, pulse ox 89% RA, pt placed on 3L NC-Pulse ox 97% CLUTCH MECHANIC Mikael notified and evaluated pt at bedside. blood cx, labs, and covid swab sent.
[2024-09-26 04:30] LABS: % Basophils 0.1 % (0-2); % Immature Granulocytes 0.5 % (0-0.5); % Lymphocytes 3.8 % (20.5-51.1); % Monocytes 9.4 % (1.7-9.3); % Neutrophils 86.2 % (42.2-75.2); Absolute Immature Granulocytes 0.1 10^3/uL (0-0.05); Absolute Lymphocytes 0.4 10^3/uL (1.2-3.4); Absolute Monocytes 0.9 10^3/uL (0.1-0.6); Absolute Neutrophils 8.7 10^3/uL (1.4-6.5); Hemoglobin 11.3 g/dL (13.0-18.0); Mean Corp Hgb Conc. 35.3 g/dL (33.0-37.0); Mean Corpuscular Hgb 33.3 pg (27.0-31.0); Mean Corpuscular Volume 94.4 fL (80.0-94.0); Mean Platelet Volume 9.4 fL (7.4-10.4); Nucleated Red Blood Cells % 0 % (-); Platelet Count 136 10^3/uL (130-400); Red Blood Cell Count 3.39 10^6/uL (4.70-6.10); Red Cell Dist. Width 12.8 % (11.5-14.5); White Blood Cell Count 10.1 10^3/uL (4.8-10.8)
[2024-09-26] MEDS: NSS 1000 IV (04:33)
[2024-09-26 05:00] LABS: COVID-19 Antigen Negative (Negative)
[2024-09-26 05:05] LABS: NT-proBNP > 27000 pg/ml
[2024-09-26 05:28] LABS: Blood Urea Nitrogen 39 mg/dl (9-20); Calcium 8.4 mg/dl (8.4-10.2); Carbon Dioxide 24 mmol/L (22-30); Chloride 96 mmol/L (98-107); Creatine Phosphokinase 305 U/L (55-170); Estimated Creatinine Clearance 53 ml/min; Glucose 103 mg/dl (70-99); Magnesium 1.5 mg/dl (1.6-2.3); Potassium 4.1 mmol/L (3.5-5.1); Sodium 131 mmol/L (135-145); eGFR > 60.00
[2024-09-26] MEDS: ASPIR LOW (ENTERIC COATED) 81 MG PO (07:50)
[2024-09-26] MEDS: PRAVACHOL 20 MG PO (07:50)
[2024-09-26] MEDS: MIRALAX 17 GRAMS PO (07:51)
[2024-09-26] MEDS: MAGNESIUM SULFATE 100 IV (09:47)
[2024-09-26] MEDS: FLUSH (NSS) 1 FLUSH IV (09:48)
--- NOTE | 2024-09-26 10:04 | WOUNDNOTE ---
[facility] RN NOTE: Patient last visited on 09/24 for buttock wounds. New consult today for right plantar foot wound. Patient found to be wearing air off-loading boots. Right medial plantar foot with deep abrasion that feels scabbed at this time. Patient
denies pain when the area is palpated. The wound was cleaned and sure-prep and border foam applied. Spoke to VALERY Orellana who just completed care to buttocks. Reyna reported that buttocks appear less red today. Patient remains on air mattress and turning
schedule. Will confirm orders with hospitalist and update orders to include care to right plantar foot. Will continue to follow as needed.
--- NOTE | 2024-09-26 11:12 | PHA.VAN.IN ---
Assessment
- Assessment
Renal Function: Appears similar to baseline (SCR & BUN may be slightly increased)
Concomitant Antimicrobials: cefepime, metronidazole
AUC Dosing Plan
- Dosing Variables
Dosing Weight (kg): 73
Dosing CrCl (ml/min): 53
Vd coefficient (L/kg): 0.7
Utilized IBW for dosing weight
- Empiric Dosing
Maintenance Regimen: Vanc 1250mg Q24H - first dose now then 0600 in lieu of loading dose
Estimated AUC (mcg*h/mL): 524
Estimated Peak (mcg*h/mL): 35.6
Estimated Trough (mcg/ml): 12
Estimated Half Life (H): 14.3
- Monitoring
No levels ordered at this time: consider levels in next few days
Pharmacokinetics Vancomycin I
- -
Patient Age: 83
Patient Sex: Male
Vancomycin Day #: 1
Indication: Other
Requesting Provider: Dr. Rodriguez
Pertinent Antimicrobial Allergies:
penicillins - unknown
Height / Weight:
Height 5 ft 10 in
Actual Weight 57.776 kg
IBW in k
- Vital Signs / Lab Results
Temp Pulse Resp BP Pulse Ox
98.4 F 70 20 94/60 96
09/26/24 07:59 09/26/24 07:59 09/26/24 07:59 09/26/24 07:59 09/26/24 08:20
Lab Results - Hematology
09/23/24 09/24/24 09/25/24
12:47 07:57 07:00
WBC 8.8 7.5 7.0
09/26/24
04:14
WBC 10.1
Lab Results - Chemistry
09/23/24 09/24/24 09/25/24
12:47 07:57 07:00
BUN 47 H 37 H 35 H
Creatinine 0.8 0.6 L 0.6 L
Estimated Creat Clear 60 79 79
Albumin 3.8
09/26/24
04:14
BUN 39 H
Creatinine 0.9
Estimated Creat Clear 53
Albumin
09/26/24
04:14
Lactic Acid 1.0
Lab Results - Urine
09/23/24
13:09
Urine Nitrite (Reflex) Negative
Leukocyte Esterase Rfl Negative
Urine WBC (Reflex) 3-5
Ur Squamous Epith Cells 3-5
Urine Bacteria (Reflex) Few A
Microbiology Results
09/24/24 06:26 MRSA Screen - Final
Nose No Methicillin Resistant Staphylococcus aureus isolated.
--- NOTE | 2024-09-26 11:18 | W.PN.INTV ---
Today's Communication / Plan
Recommendations
Transfer to ICU
Lethargy noted, obtain ABG
Hypotension, low threshold for pressors given volume overload status
Cards following, further eval for HF
Sepsis r/o w/u
CT chest neg, AP pending
Patient is DNR, may need to discuss GOC with family
Assessment
-
Patient is an 83-year-old male with previous history of IPF, CAD, hypertension, hyperlipidemia with dementia presenting status post mechanical fall. He reports that he has had frequent falls in the past few weeks, is unable to ambulate
independently with a cane. He does not ambulate with a walker. He feels his mental status is declining as well. He does not feel any worsening shortness of breath, cough or wheezing. CT obtained indicating slight progression of his IPF but no
significant changes. He is currently 93% on room air. He has not required oxygen at home. We are consulted for history of IPF 09/25/24.
Acute hypotension, possibly septic shock
Increasing lethargy
Acute HFpEF, proBNP >70992
Status post mechanical fall
Melena, Hemoccult testing +
Mild anemia, acute blood loss
Hyponatremia, mild
Elevated CK, not consistent with rhabdo
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
Bronchiectasis without complication
IPF/Restrictive lung disease
Followed by Dr Taveras, last seen 09/2023
MVP
HTN
Dyslipidemia
Bradycardia/Frequent PVCs
Open heart surgery with pericardial injury 2019
Severe aortic stenosis s/p TAVR
IBS
Bilateral knee sx
3 hernia repairs
History of MRSA
Advancing dementia
Plan
Lethargy and hypotension noted this AM
Transfer to ICU
Obtain ABG
CT obtained for PE, negative
Add on CT AP to r/o abd disease
Lactate negative
No oxygen was needed on admission, was saturating 93% on RA
Prior 6MWT completed in office showing no need back in Nov, he has not yet needed O2 at home w/ rest or with exertion
Supplemental O2 as needed
Prior history of lung disease is noted including IPF--last OP note reviewed
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
6 minute walk test without hypoxemia at baseline
Pulmonary function test today does reveal moderate restriction and severely reduced diffusing capacity
Initial imaging on admission showing IPF overall stable with slight progression
Repeat CT showing more pleural effusion
This is more likely acute HF, less so rapid progression of IPF
Hypotension, rule out sepsis
IVFs on board, but would have low threshold for pressor use
He is DNR, would not want aggressive measures
Prior ECHO results are reviewed indicating stable findings, preserved EF
Severe s/p TAVR history
Cards eval obtained, proBNP >17262
Progression of MR is noted
Weight loss noted, with poor appetite
Optimize nutrition
Overall picture of FTT in background of dementia
Prognosis overall poor, may need to update family
GIB noted, possibly
Hb 11 baseline 14
Iron panel normal
Follow clinically
DVT ppx, SCDs
PT/OT when able
GI ppx, he is not yet started on PPI
We will follow
Diagnostic Data
Chest X-Ray:
CT Scan: CAP 09/23/24- 1. Trace left pleural effusion.
2. Mild T10 and T12 compression fractures, both new from 04/05/2023 and likely acute/subacute. Recommend correlation for any point tenderness in this region.
3. No other significant acute abnormality identified in the chest, abdomen or pelvis, as described above. Stable changes of chronic interstitial lung disease.
4. Moderate diffuse colonic stool burden may reflect constipation.
CHEST 04/05/23- 1. 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 2. Nonspecific mildly prominent
mediastinal lymph nodes. 3. Cardiomegaly. 4. Prior TAVR. 5. Moderate coronary artery calcifications. 6. Borderline ectasia of the ascending thoracic aorta measuring 4.1 cm diameter.
Echo: 09/24/24- Normal left ventricular size and systolic function without regional wall motion abnormalities. LVEF 60-65%. Right ventricle is mildly dilated with normal systolic function. Biatrial enlargement. Bileaflet mitral valve prolapse with
moderate mitral regurgitation. Well-seated TAVR with normal function (peak/mean 19/8 mmHg). Mild to moderate tricuspid regurgitation. Estimated PASP 44 mmHg. Interatrial septum bowed to the right consistent with elevated left atrial pressure.
Compared to prior echocardiogram on 06/07/2024, mitral regurgitation has increased in severity. It was previously mild to moderate and is now solidly moderate. Aortic valve gradients are stable. PASP has increased from 28 mmHg to 44 mmHg. There is
now evidence of elevated left atrial pressure.
06/07/24- Normal left ventricular systolic function. LV ejection fraction is 55-60%. Posterior mitral valve prolapse. Mild/moderate mitral regurgitation. s/p TAVR. The peak/mean gradients across the valve are 20/10 mmHg. No aortic regurgitation is
seen. Mildly dilated right ventricle with normal systolic function. Mild/moderate tricuspid regurgitation. Normal PASP. Mildly dilated ascending aorta (4.1 cm).
Compared to 02/20/23: MR has improved from moderate to mild/moderate. Other findings stable.
PFT's: 09/2023- Pulmonary function test today does reveal moderate restriction and severely reduced diffusing capacity.
6 minute walk test without hypoxemia
Reports and relevant images were personally reviewed.
-----
Critical care time on this encounter __45__ minutes which includes review of history, physical exam, medications, laboratory data, personal review of imaging, extensive review of outpatient records, discussion with care team and respiratory therapy.
Subjective Dataa
Subjective Data
Date of Service:
Date of Service: September 26, 2024
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
Subjective:
Patient is more lethargic this AM, hypotensive
Team has transferred care to ICU
He is notably more lethargic but arousable
IVFs are in place
Objective Data
Data Reviewed
Vital Signs / I&O / Oxygen:
Vital Signs
Temp Pulse Resp BP Pulse Ox
98.4 F 70 20 94/60 96
09/26/24 07:59 09/26/24 07:59 09/26/24 07:59 09/26/24 07:59 09/26/24 08:20
Intake and Output
09/25/24 09/26/24 09/27/24
06:59 06:59 06:59
Intake Total 600 / 600 667.5 / 667.5 100 / 100
Output Total 200 / 200
Balance 400 / 400 667.5 / 667.5 100 / 100
SaO2 96
Nasal Cannula flow liters per 3
minute
Physical Exam
General: Comfortable, Poor Appetite and Other (NAD)
HEENT: Normocephalic, Anicteric and Other (dry MM)
Cardiovascular: S1-S2 and Regular Rhythm
Respiratory: Clear and Non-Labored Respirations
GI: Soft, Non Distended and Normal Bowel Sounds
Neurology: No Motor Deficits and Lethargic (but responsive)
Skin: Warm and Dry
Labs/Micro/Reports
Lab Data
09/26/24 04:14
09/26/24 04:14
Microbiology
09/24/24 06:26 Nose MRSA Screen - Final
No Methicillin Resistant Staphylococcus aureus isolated.
--- NOTE | 2024-09-26 11:33 | W.PN.HOSP.TC ---
Today's Communication/Plan
-
Fever, Hypotension, Hypoxia, Lethargy
Antibiotics started, IV fluids given
Transfer to ICU
Patient's family (Wally) updated
Assessment / Plan
Assessment / Plan
Physical Exam
General: Lethargic
HEENT: Normocephalic
Respiratory: Fine rales bilaterally
Cardiac: S1/S2 and Regular Rhythm
GI: Soft and Non Tender. Positive bowel sounds.
Musculoskeletal: No Cyanosis and No Edema
Skin: Warm, Dry
Neuro: Lethargic.
Psych: Calm

CT Chest/abd/pel W Iv Cont (as per radiologist's report)
'IMPRESSION:
1. Trace left pleural effusion.
2. Mild T10 and T12 compression fractures, both new from 04/05/2023 and likely acute/subacute. Recommend correlation for any point tenderness in this region.
3. No other significant acute abnormality identified in the chest, abdomen or pelvis, as described above. Stable changes of chronic interstitial lung disease.
4. Moderate diffuse colonic stool burden may reflect constipation.'
CTA of the chest with intravenous contrast (as per radiologist's report)
'IMPRESSION:
1. No evidence of pulmonary embolism or thoracic aortic dissection.
2. Trace left pleural effusion, new compared to 09/23/2024.
3. Changes of moderate interstitial fibrosis, unchanged compared to multiple prior studies, including 04/05/2023.
4. Mild dilation of the ascending thoracic aorta, which measures 3.7 cm in greatest orthogonal dimension. No significant change compared to prior studies, including 04/05/2023.
5. Stable prominence of the main pulmonary trunk, suggestive of pulmonary arterial hypertension in the correct clinical setting.'
Noncontrast CT examination of the abdomen and pelvis (as per radiologist's report)
'IMPRESSION:
1. No evidence of abdominal pelvic abscess or other acute pathology.
2. Small bubbles of air within the right anterior lower abdominal wall, likely resulting from subcutaneous injections. No body wall abscess.
3. Small left pleural effusion, also seen on CTA of the chest. Bibasilar interstitial fibrosis.'
Echocardiogram (as per associate designer's report)
'CONCLUSIONS
Normal left ventricular size and systolic function without regional wall motion
abnormalities. LVEF 60-65%.
Right ventricle is mildly dilated with normal systolic function.
Biatrial enlargement.
Bileaflet mitral valve prolapse with moderate mitral regurgitation.
Well-seated TAVR with normal function (peak/mean 19/8 mmHg).
Mild to moderate tricuspid regurgitation. Estimated PASP 44 mmHg.
Interatrial septum bowed to the right consistent with elevated left atrial
pressure.
Compared to prior echocardiogram on 06/07/2024, mitral regurgitation has
increased in severity. It was previously mild to moderate and is now solidly
moderate. Aortic valve gradients are stable. PASP has increased from 28 mmHg
to 44 mmHg. There is now evidence of elevated left atrial pressure.'

Assessment/Plan
83-year-old male past medical history of aortic valve replacement, cardiac catheterization complicated by punctured pericardium, Alzheimer's dementia, hypertension, pulmonary fibrosis, BPH, hyperlipidemia, presented after being found in the bathtub.
He was reported to have fallen twice in the past week. He has been having progressive memory impairment over the past several months.
He was also noted to have blood in his underwear on the toilet today. On rectal examination by ER he had pinkish stool was Hemoccult positive. He has small sacral decubitus ulcer.
Vital signs unremarkable. Labs show creatinine kinase of 858. Labs otherwise unremarkable. Urinalysis unremarkable. IV fluids. Likely worsening falls and memory impairment from worsening dementia.
Check orthostatic vital signs. Wound care consulted. Monitor for further rectal bleeding and anemia. If further bleeding and anemia will require GI. Wound care consulted. PT/OT.
Hypotension, Lethargy, Fevers on 09/26/24 Morning
Acute Hypoxic Respiratory Insufficiency
-Oxygen started due to hypoxia, continue oxygen to maintain O2 saturation at least 90%
-Gave small bolus of IV fluids given patient's cardiac issues and mitral regurgitation
-Started broad spectrum antibiotics with Vancomycin, Cefepime and Flagyl
-Possible source of infection is patient's sacral wound
-Blood Cultures
-C++ Quant Developer consulted, appreciate their evaluation and recommendations
-Infectious Disease consulted, appreciate their evaluation and recommendations
-Appreciate cardiology input
Hypomagnesemia
-Magnesium IV replacement ordered
-Recheck BMP and Magnesium
Frequent Falls with Mild Non-Traumatic Rhabdomyolysis
Concern for Orthostatic Hypotension -- RESOLVED
-Patient was given intravenous fluids
-Recheck CPK in AM --> CPK overall improved
-PT/OT
-Echo noted, as above
-Tele monitor
'Blood in Underwear'
-ED staff noted small sacral wound which appeared to have bleed recently. This is the likely source
-ED staff also noted pink stool which was heme-positive
-Hold on GI consult for now
-Monitor Hgb -- has been stable
-Heme-Test Stool still pending
Mild RV Dilation on September 2024 Echocardiogram
-Possibly for pulmonary fibrosis
-Consult pulmonary, appreciate evaluation and recommendations
Biatrial Enlargement
Mitral Regurgitation
Elevated left atrial pressure
-Worsened on September 2024 compared to previous
-Consult cardiology, appreciate their evaluation and recommendations
-Echo will need to be rechecked echo again at his next visit with Dr. Dueñas in October 2024.
History of TAVR
History of cardiac catheterization complicated by punctured pericardium
LUE Weakness and Pain
-Suspected secondary to falls/trauma
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
-Neurology consulted for stroke evaluation, appreciate their evaluation and recommendations
Multilevel neural foraminal osseous encroachment, greatest on the left from C3-C7, as per radiologist's report from CT of the Cervical Spine
-Follow-up with consumer relations specialist/neurosurgery outpatient
Constipation on CT Imaging from September 2024 Hospitalization
-Bowel regimen: Miralax daily
-Dulcolax suppository given on 09/24/24
-Large bowel movement reported by nurse on 09/25/24
Macrocytic Anemia
Thrombocytopenia
-Monitor CBC
-Iron studies and Vitamin B12 unremarkable
Hematuria on Urinalysis
-Discussed via [facility] on 09/25/24, with urologist Dr. Carr who mentioned that this should be followed up outpatient, no need for inpatient urology evaluation
Compression Fractures on CT Imaging from September 2024 Hospitalization
-PT/OT
Alzheimer's Dementia
-Patient likely require more help at home or higher level of care
-Consult Case Management
-Monitor for mood/behavior changes during hospitalization
-Outpatient neuropsychological testing (if not already completed) to guide in therapeutic intervention.
Idiopathetic Pulmonary Fibrosis
-Stable
-Consulted pulmonary given RV dilation
Coronary Artery Calcification
-Continue aspirin
Hypertension
Hyperlipidemia
-Continue pravastatin
BPH
-Flomax recently stopped by PCP
-Monitor for retention
History of Asymptomatic Hyponatremia
History of Total knee arthroplasty
History of likely osteomyelitis of right fifth toe/surrounding cellulitis
History of MRSA
Underweight
DVT Prophylaxis: SCDs and Lovenox.
Diet/Speech: Regular Solids with Thin Liquids, as per speech
Code Status: DNR
On 09/26/24, I called patient's family (Wally Dowell) and explained patient's current status and need for transfer to ICU. All questions and concerns were answered to satisfaction.
High fever, hypotension, hypoxia and lethargy needing transfer to ICU is a high risk encounter.
Anticipated Discharge: > 48 hours
Subjective/Interval History
-
Date of Service: September 26, 2024
Patient was seen and examined. He was more lethargic this morning, and had been having high fevers earlier.
Objective Data
-
Labs:
Laboratory Results
09/26/24 09/26/24
04:14 11:20
WBC 10.1
Hgb 11.3 L
Hct 32.0 L
Plt Count 136
HCO3 Pending
Sodium 131 L
Potassium 4.1
Chloride 96 L
Carbon Dioxide 24
BUN 39 H
Creatinine 0.9
Glucose 103 H
Calcium 8.4
Vital Signs:
Vital Signs
Temp Pulse Resp BP Pulse Ox
98.4 F 70 20 94/60 96
09/26/24 07:59 09/26/24 07:59 09/26/24 07:59 09/26/24 07:59 09/26/24 08:20
I&O
09/25/24 09/26/24 09/27/24
06:59 06:59 06:59
Intake Total 600 / 600 667.5 / 667.5 100 / 100
Output Total 200 / 200
Balance 400 / 400 667.5 / 667.5 100 / 100
--- NOTE | 2024-09-26 11:45 | PTCARENOTE ---
Report given to Ying RN and patient transferred to ICU per order.
[2024-09-26 12:09] LABS: B.E. 2.8 mmol/L; HCO3 26.1 mmol/L (21-28); O2 Saturation % 92.2 % (94-98); PCO2 35 mmHg (35-48); PO2 60 mmHg (83-108); pH 7.48 (7.35-7.45)
--- NOTE | 2024-09-26 12:10 | W.PN.CD ---
Addendum entered and electronically signed by Eduardo Clifford MD 09/26/24 16:47:
83 yo male with PMH of TAVR, moderate MR, dementia is admitted after a fall with rhabdo. He is now febrile. He seems confused on exam. Denies chest pain. Exam with RRR, II/ systolic murmur at apex, trace edema. Cr 0.9. So far, one Bcx has GPC.
He appears euvolemic today. He may end up needing diuresis after treating his sepsis with Abx and IV fluids.
Original Note:
Today's Communication / Plan
-
-treatment of infectious process per primary team
-monitor volume status, tele, BP's
Impression / Plan
-
BACKGROUND: 83M with coronary artery calcification, pulmonary fibrosis, hypertension, dyslipidemia, severe aortic stenosis s/p TAVR, MVP with mitral regurgitation, and Alzheimer's dementia who presented after a fall. He has had a significant
decline over the past 3-4 weeks. Cardiology has been consulted for worsened MR on TTE.
Primary it auditor: Dr. Dueñas.
IMPRESSION/PLAN:
Fever, hypotension- concern for septic shock:
-this diagnosis is threat to life
-103.1 fever overnight
-Covid negative 09/26/24
-blood cultures pending
-continue abx per primary team
Elevated pro-BNP and hypoxia requiring O2 by NC:
-patient weight stable, echo as below
-CT today chest: No evidence of pulmonary embolism or thoracic aortic dissection. Trace left pleural effusion, new compared to 09/23/2024. Changes of moderate interstitial fibrosis, unchanged compared to multiple prior studies, including 04/05/2023.
Mild dilation of the ascending thoracic aorta, which measures 3.7 cm in greatest orthogonal dimension. No significant change compared to prior studies, including 04/05/2023. Stable prominence of the main pulmonary trunk, suggestive of pulmonary
arterial hypertension in the correct clinical setting.
-despite this elevation, does not appear volume overloaded to assessment
-monitor volume, but diuresis not appropriate for patient with concern for septic shock
Multiple falls with mild rhabdomyolysis, per primary
-orthos when safe and able, but not now
Worsened Alzheimer's dementia with hallucination, per primary service
[facility] stable on most recent echocardiogram
MVP with moderate mitral regurgitation
Sinus bradycardia : follow telemetry, currently SR
Idiopathic pulmonary fibrosis with bronchiectasis,
Coronary artery calcification, on aspirin and pravastatin
h/o EP study, complicated by perforation, led to emergent open heart surgery ([facility], 2001)
Echo 09/24/24 EF 60-65%MVP and modertae MR, TAVR . mean gradinet 8mmHg. No AR. MMild to mod TR . PASP 44mmHg
SUBJECTIVE:
patient is confused, but in no distress
DATA:
Transthoracic echocardiogram, 09/24/2024:
CONCLUSIONS
Normal left ventricular size and systolic function without regional wall motion
abnormalities. LVEF 60-65%.
Right ventricle is mildly dilated with normal systolic function.
Biatrial enlargement.
Bileaflet mitral valve prolapse with moderate mitral regurgitation.
Well-seated TAVR with normal function (peak/mean 19/8 mmHg).
Mild to moderate tricuspid regurgitation. Estimated PASP 44 mmHg.
Interatrial septum bowed to the right consistent with elevated left atrial
pressure.
Compared to prior echocardiogram on 06/07/2024, mitral regurgitation has
increased in severity. It was previously mild to moderate and is now solidly
moderate. Aortic valve gradients are stable. PASP has increased from 28 mmHg
to 44 mmHg. There is now evidence of elevated left atrial pressure.
Physical Exam
Vital Signs/Labs
Vital Signs
Temp Pulse Resp BP Pulse Ox
98.4 F 70 20 94/60 96
09/26/24 07:59 09/26/24 07:59 09/26/24 07:59 09/26/24 07:59 09/26/24 08:20
09/25/24 09/26/24 09/27/24
06:59 06:59 06:59
Actual Weight 57.805 kg 57.776 kg
09/26/24 04:14
09/26/24 04:14
Magnesium 1.5 mg/dl (1.6-2.3) L 09/26/24 04:14
09/26/24
04:14
Swi-V-Vyvukglamho Pept > [id number]
Physical Exam
Constitutional: No acute distress
EENT: Anicteric
Cardiovascular: Rhythm & rate is regular and Systolic murmur present
Neuro/Psych: Alert and Other (confused)
Data Reviewed
-
Date of Service: September 26, 2024
EKG: Other (tele SR)
X-Ray/CT/US/MRI/NUC/PET: Report Reviewed by me (CT as nored)
Medical Tests (PFT, Pathology etc): Report Reviewed by me (echo as noted)
Labs: Labs Reviewed by me
--- NOTE | 2024-09-26 12:11 | WOUNDNOTE ---
RIGHT MEDIAL PLANTAR FOOT
[2024-09-26] MEDS: NSS 250 IV (12:40)
--- NOTE | 2024-09-26 12:49 | PTCARENOTE ---
received pt via bed with RN, tele and oxygen. He is very rigid with a heightened startle reflex, he is reaching out, grabbing onto objects. Visual kinney seem impaired. unable to complete full neuro exam. Pt unable to follow commands. Only oriented
to self. Lungs with bibasilar crackles 1/2 up with pulse ox 99% on 3 liters nasal cannula. Absent BSx4. Dry cough after mouth care with splinting of his left side. He stated that the left side was painful when he coughs. Bath blanket provided to
splint his ribs for when he coughs. Sacral wound cleansed and redressed as ordered. Air foam heel relief wedges applied. Safe environment maintained. Will continue to monitor. Family at the bedside and updated on the plan of care.
[2024-09-26] MEDS: FLAGYL 500 MG 100 IV (13:19)
[2024-09-26] MEDS: MAXIPIME 2000 MG IV ×2 (13:24→23:22)
[2024-09-26] MEDS: STERILE WATER FOR INJECTION 10 ML IV ×2 (13:25→23:22)
[2024-09-26] MEDS: VANCOCIN 275 MG IV (14:38)
--- NOTE | 2024-09-26 16:04 | CON.ID ---
Consultation
-
Date/Time Consultation Requested: 09/26/2024 1128
Date/Time Consultation Performed: 09/26/2024 1530
Requesting Provider: Dr. Rodriguez
Performing Provider: Dr. Ge
Reason for Consultation: Fever
Chief Complaint / Past History
History of Present Illness
Milly Dowell is an 83-year-old man with a significant past medical history of Alzheimer's dementia being evaluated at the request of Dr. Rodriguez in regards to fever. History is obtained from chart review along with patient interview, but patient
was not found to have be able to supply significant history to me.
The patient presented to [facility] ER on 09/23/2024 secondary to a fall. The patient lives alone, but is closely monitored by his nephew and nephew's , who check in on him every other day. On the day of admission they found him in the
bathtub, and is unclear how long he had laying there. According to reviewed notes, the patient had had 2 falls over the past 1 week timeframe.
Initial workup did not reveal a leukocytosis, and the patient was not febrile, but over the past 12 hours he has developed fever to 103 degrees. Infectious Diseases is now asked to comment upon further antimicrobial management.
At the present time the patient denies any pain. Denies any headache. He denies any abdominal discomfort.
Past History
Additional Past Medical History:
HTN
Alzheimer's dementia
Additional Past Surgical History:
Hernia repair
TAVR
Allergy History:
Penicillins Allergy (Verified 09/23/24 12:24)
Unknown
Medications Reviewed: Yes
Current Antibiotics:
Vancomycin (dosed per pharmacy)
Cefepime 2 g IV every 8 hours
Metronidazole 500 mg IV every 8 hours
Social History
Tobacco: Non-Smoker
Alcohol: None
Drug: None
Personal: Single
Living: Alone
Employment: Retired
Family History
Family History: Not Pertinent
Review of Systems
Vital Signs
Temp Pulse Resp BP Pulse Ox
101.9 F H 74 22 86/60 97
09/26/24 14:42 09/26/24 14:30 09/26/24 14:30 09/26/24 14:30 09/26/24 14:42
Physical Exam
Physical Exam
Constitutional: Comfortable, Chronically Ill, Non-toxic and Cachetic (mild)
Head: Normocephalic
Eyes: Pupils Equal, Pupils Round, No Conjunctival Hemorrhage and Sclera Anicteric
Pharynx: Benign
Oral: No Thrush and No Ulcers
Cardiovascular: Regular Rate, S1/S2 and Murmur; Negative S3/S4
Pulmonary: Coarse and Non Labored; Negative Wheezes or Rales
Gastrointestinal: Soft, Non Tender, Non Distended, Normal Bowel Sounds, No Rebound and No Guarding
Genito-Urinary: [place] (condom cath) and Clear Urine; Negative Turbid Urine or Hematuria
Extremities: Edema (Trace); Negative Cyanosis, Erythema, Splinter Hemorrhage, Venous Insufficiency or Janeway Lesions
Skin: Warm, Dry and Other (Multiple areas of ecchymosis on the skin.); Negative Jaundice
Wound: Other (Stage II/III sacral wound)
Neurological: Awake and Alert
Psychological: Calm
.
Lab / Diagnostic Study Results
09/26/24 04:14
09/26/24 04:14
Abs Immat Gran (auto) 0.1 10^3/uL (0-0.05) H 09/26/24 04:14
Absolute Neuts (auto) 8.7 10^3/uL (1.4-6.5) H 09/26/24 04:14
Absolute Lymphs (auto) 0.4 10^3/uL (1.2-3.4) L 09/26/24 04:14
Absolute Monos (auto) 0.9 10^3/uL (0.1-0.6) H 09/26/24 04:14
Absolute Basos (auto) 0.0 10^3/uL (0-0.2) 09/26/24 04:14
Immature Gran % 0.5 % (0-0.5) 09/26/24 04:14
Neutrophils % 86.2 % (42.2-75.2) H 09/26/24 04:14
Lymphocytes % 3.8 % (20.5-51.1) L 09/26/24 04:14
Monocytes % 9.4 % (1.7-9.3) H 09/26/24 04:14
Eosinophils % 0.0 % (0-6) 09/26/24 04:14
Basophils % 0.1 % (0-2) 09/26/24 04:14
Lactic Acid 1.0 mmol/L (0.7-2.0) 09/26/24 04:14
Ur Squamous Epith Cells 3-5 /LPF (Few) 09/23/24 13:09
Microbiology Results
Micro:
09/26/24 04:14 Blood Culture - Preliminary
Blood/Venous Positive culture - GPC
Gram Stain - Preliminary
09/26/24 11:18 Influenza Types A & B ([facility]) - Final
Nasal Swab Negative for Influenza A & B, NAAT
Negative results must be combined with clinical observations
and patient history.
Nucleic Acid Amplification test (NAAT)performed on the
[employer] platform.
09/26/24 07:53 Blood Culture - Pending
Blood/Venous
09/24/24 06:26 MRSA Screen - Final
Nose No Methicillin Resistant Staphylococcus aureus isolated.
Imaging:
09/26/2024 CXR chest (portable): Mild cardiomegaly noted. Median sternotomy wires and TAVR prostatic are unchanged. Moderate reticular interstitial thickening is seen bilaterally. Hazy opacity at the left lung base noted. Please see full
dictation for additional detail.
09/26/2024 CT abdomen/pelvis without contrast: No evidence of abdominal pelvic abscess or other acute pathology. Small bubbles of air within the right anterior lower abdominal wall likely resulting from subcutaneous injections. No body wall
abscess.
09/26/2024 CT chest: No evidence of PE or thoracic aortic dissection. Trace left pleural effusion. Changes of moderate interstitial fibrosis noted. Please see full dictation for additional detail.
Assessment / Plan
Fever
Bacteremia with gram-positive cocci
Normal white count with left shift
Elevated BNP
HTN
Alzheimer's dementia
Recommendations:
At present, etiology of new onset fever is not clear. Infection is a possibility (especially given presence of TAVR), but given its acute onset, other etiologies are possible.
Continue with vancomycin and cefepime for the present.
Cefepime dose can be decreased to 2 g IV every 12 hours
While patient remains on vancomycin, follow levels closely.
Metronidazole can be discontinued for the present.
Await further blood culture data to guide antimicrobial therapy and potential de-escalation.
--- NOTE | 2024-09-26 16:12 | PTOTSP ---
Noted pt transferred to ICU today and PT/OT orders were not continued upon transfer. Will need updated PT and OT orders when stable to resume therapy activities.
--- NOTE | 2024-09-26 16:55 | W.PN.NEURO.1 ---
Today's Communication / Plan
-
.
Subjective/Objective
Subjective Data
Date of Service: September 26, 2024
Neurology Consultation Note.
24h events: Febrile, hypotensive down to 94/60. Continues to have left shoulder pain.
CT C spine-chronic degenerative changes of the cervical spine. Multilevel neural foraminal osseous encroachment, greatest on the left from C3-C7.
TSH-normal
PMH: dementia, idiopathic pulmonary fibrosis, HTN, DLP, moderate MR, IGT, Thrombocytopenia, BPH, diverticulosis, BMI 18
PSH: TAVR, Hernia Repair
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
FH:, not contributory to current presentation
All: PNC
ROS: Positive for left shoulder pain and left arm weakness
General: Very slim. Right frontal temporal ecchymosis
Cardio: Regular rate and rhythm without murmur. Extremities are without cyanosis or edema.
Neuro:
Mental Status: Alert, oriented to name only. Poor attention. Expressive> receptive aphasia. Follows simple requests intermittently. No hemineglect.
Cranial Nerves: Pupils are equally round and reactive to light. EOMs full. Blink to threat bilaterally no ptosis. No nystagmus. Face symmetric. Impaired l hearing AU. The palate elevated well. SCMs and traps 5/5. Tongue midline. Mild
dysarthria. Mild hypophonia
Motor: Pain related to left arm proximal weakness. Distal muscle groups appear to be intact
Reflexes: Bilateral grasp
Sensory: Impaired vibration at the toes ankles and knees. Limited exam due to poor attention
Coordination: No tremors myoclonic movements
Gait: deferred
Assessment and Plan:
I. Left painful proximal monoparesis Limited exam due to encephalopathy
II. Encephalopathy, likely mixed (neurodegenerative, infectious)
III. Rhabdomyolysis
-Fall and delirium precautions
-PT
-Aspirin 81 mg QD with close platelet monitoring
-Brain MRI wo chad when able
-Ortho consult
I personally reviewed all radiology and labs along with past medical records pertinent to current medical problems. Total time spent in patient care is 40 minutes.
Thank you for allowing us to participate in the care of this patient. We will continue to follow. Please do not hesitate to contact us with any questions or concerns.
Objective Data
Vital Signs
Temp Pulse Resp BP Pulse Ox
39.1 C H 74 22 86/60 97
09/26/24 16:33 09/26/24 14:30 09/26/24 14:30 09/26/24 14:30 09/26/24 14:42
Lab Results
09/26/24 04:14
09/26/24 04:14
Sodium 131 mmol/L (135-145) L 09/26/24 04:14
Potassium 4.1 mmol/L (3.5-5.1) 09/26/24 04:14
BUN 39 mg/dl (9-20) H 09/26/24 04:14
Glucose 103 mg/dl (70-99) H 09/26/24 04:14
Calcium 8.4 mg/dl (8.4-10.2) 09/26/24 04:14
Phosphorus 3.4 mg/dl (2.5-4.5) 09/24/24 07:57
Zdp-K-Vgiyjxnyzgl Pept > 94107 pg/ml 09/26/24 04:14
Vitamin B12 902 pg/ml (239-931) 09/25/24 07:00
Patient Allergies
Penicillins Allergy (Verified 09/23/24 12:24)
Unknown
Vital Signs and Labs
-
Vital Signs and Labs:
Vital Signs
Temp Pulse Resp BP Pulse Ox
39.1 C H 74 22 86/60 97
09/26/24 16:33 09/26/24 14:30 09/26/24 14:30 09/26/24 14:30 09/26/24 14:42
Lab Results
09/26/24 04:14
09/26/24 04:14
Sodium 131 mmol/L (135-145) L 09/26/24 04:14
Potassium 4.1 mmol/L (3.5-5.1) 09/26/24 04:14
BUN 39 mg/dl (9-20) H 09/26/24 04:14
Glucose 103 mg/dl (70-99) H 09/26/24 04:14
Calcium 8.4 mg/dl (8.4-10.2) 09/26/24 04:14
Phosphorus 3.4 mg/dl (2.5-4.5) 09/24/24 07:57
Scl-G-Saxjsmepuaz Pept > 60615 pg/ml 09/26/24 04:14
Vitamin B12 902 pg/ml (013-931) 09/25/24 07:00
Medications
-
Medications:
Generic Name Dose Route Start Last Admin
Trade Name Freq PRN Reason Stop Dose Admin
Acetaminophen 650 mg 09/23/24 19:26 09/26/24 13:31
Acetaminophen 325 Mg Tablet PO 10/21/24 19:25 650 mg
Q4HPRN PRN Administration
mild pain/ fever>100.5F
Aspirin 81 mg 09/24/24 08:00 09/26/24 07:50
Aspirin 81 Mg (Enteric Coated) Tablet PO 10/22/24 07:59 81 mg
DAILY CHRISTOPHER Administration
Cefepime HCl 2,000 mg 09/27/24 00:00
Cefepime Hcl 2,000 Mg/12.5 Ml Vial IV
Q12H CHRISTOPHER
Enoxaparin Sodium 40 mg 09/24/24 18:00 09/25/24 17:27
Enoxaparin Sodium 40 Mg/0.4 Ml Syringe SC 10/22/24 17:59 40 mg
QPM CHRISTOPHER Administration
Vancomycin HCl 1,250 mg/ 275 mls @ 183.33 mls/hr 09/26/24 12:00 09/26/24 14:38
Sodium Chloride IV 275 mls
DAILY@0600 CHRISTOPHER Administration
Protocol
Polyethylene Glycol 17 grams 09/24/24 17:00 09/26/24 07:51
Polyethylene Glycol Powder 17 Grams Packet PO 10/22/24 16:59 17 grams
DAILY CHRISTOPHER Administration
Pravastatin Sodium 20 mg 09/24/24 08:00 09/26/24 07:50
Pravastatin 20 Mg Tablet PO 10/22/24 07:59 20 mg
DAILY CHRISTOPHER Administration
Sodium Chloride 0 flush 09/24/24 17:00 09/26/24 09:48
Sodium Chloride 0.9% (Flush) Syringe IV 10/22/24 16:59 1 flush
PER PROTOCOL CHRISTOPHER Administration
Sterile Water 10 ml 09/27/24 00:00
Sterile Water For Injection 10 Ml Vial IV 10/25/24 00:00
Q12H CHRISTOPHER
Home Medications
-
Home Medications
aspirin 81 mg tablet,delayed release 81 mg PO DAILY Blood Clot Prevention/Tx 07/24/23
cholecalciferol (vitamin D3) 25 mcg (1,000 unit) tablet (Vitamin D3) 25 mcg PO DAILY Supplement 07/24/23
pravastatin 20 mg tablet 20 mg PO DAILY High Cholesterol 07/24/23
Prevagen 1 cap PO DAILY 09/23/24
therapeutic multivitamin 1 tab PO DAILY 09/23/24
[2024-09-26] MEDS: LOVENOX 40 MG SC (18:43)
--- NOTE | 2024-09-26 20:30 | PTCARENOTE ---
Resumed care of pt laying in bed AAOx1. Oriented to self. Garbled slurred speech. Axillary temp 102.5, Oral Tylenol administered as directed. Pt pocketing pills, needing lost of directions on swallowing pills. Pt difficulty following commands. HR in
the 70's in NSR with first degree AV block on the monitor. POX 95% on 3 LO2 NC. Pt KENNEDY, Tachypneic at rest at times. B/L crackles 1/2 bilaterally. Occasional dry cough. Oral care provided. Hypo bowel. #21cc in place, no urine output at this time.
Bladder scanned for 200ml. No BM noted. Buttock dressing intact. B/L LE air boots in place. B/L knee high seq in place. Scattered bruising noted t/o body. Significant ecchymosis noted to right face and head. Pt winces in pain when moving left side
of body, especially left shoulder/ ribs. Right forearm int capped. Pt turned and positioned. Ice packs provided. Will continue to monitor closely.
[2024-09-26] MEDS: LEVOPHED 250 IV (21:36)
--- NOTE | 2024-09-26 23:15 | VATNOTE ---
CONFIRMED WITH RADIOLOGIST PRIOR TO PICC INSERTION OF REPORT OF OCCLUSIVE THROMBUS IN LUE CEPHALIC VEIN VIA VERBAL PHONE CONVERSATION. ALSO NOTED AND CONFIRMED WITH PCN OF DOCUMENTED +BC ON 09/26 AM PRIOR TO PICC ORDER AND PICC INSERTION.
[2024-09-26] MEDS: LOVENOX 60 MG SC (23:21)
[2024-09-27] VITALS (42 sets, daily range): BP systolic 97–153; BP diastolic 45–76; BMI 18.3
--- NOTE | 2024-09-27 00:22 | PTCARENOTE ---
New right dual picc now in place. Xray confirmation of placement. Levophed infusing via right picc as ordered to keep MAP >65. Pt having frequent PVC's on the monitor/ Bigeminy at times. Temp now 99.4. Pt resting comfortably. NO other changes in
assessment noted at this time. Will monitor.
[2024-09-27 04:07] LABS: Hematocrit 33.8 % (39.0-52.0); Hemoglobin 11.7 g/dL (13.0-18.0); Mean Corp Hgb Conc. 34.6 g/dL (33.0-37.0); Mean Corpuscular Hgb 33.3 pg (27.0-31.0); Mean Corpuscular Volume 96.3 fL (80.0-94.0); Mean Platelet Volume 9.3 fL (7.4-10.4); Platelet Count 125 10^3/uL (130-400); Red Blood Cell Count 3.51 10^6/uL (4.70-6.10); Red Cell Dist. Width 13.2 % (11.5-14.5); White Blood Cell Count 14.7 10^3/uL (4.8-10.8)
[2024-09-27 04:33] LABS: Urine Albumin 1+ (Neg - Trace); Urine Bilirubin 1+ (Negative); Urine Character Clear (Clear); Urine Color Amber; Urine Glucose Negative (Negative); Urine Ketone Trace (Negative); Urine Leukocyte Trace (Negative); Urine Nitrite Positive (Negative); Urine Occult Blood 3+ (Negative); Urine Specific Gravity 1.025 (<1.030); Urine Urobilinogen 1+ (Neg - 1+)
[2024-09-27 04:34] LABS: Blood Urea Nitrogen 59 mg/dl (9-20); Calcium 7.8 mg/dl (8.4-10.2); Carbon Dioxide 26 mmol/L (22-30); Chloride 96 mmol/L (98-107); Estimated Creatinine Clearance 53 ml/min; Glucose 111 mg/dl (70-99); Potassium 4.1 mmol/L (3.5-5.1); Sodium 133 mmol/L (135-145); eGFR > 60.00
[2024-09-27 04:45] LABS: Urine Squamous Cell >30 /LPF (Few)
[2024-09-27 04:46] LABS: Urine Amorphous Seen; Urine Mucus Many
[2024-09-27 04:47] LABS: Urine Bacteria Many (Negative); Urine White Cell 30-40 /HPF (0-5)
[2024-09-27 04:49] LABS: Urine Calcium Oxalate Crystals Seen; Urine Red Blood Cell 16-20 /HPF (0-2)
[2024-09-27] MEDS: VANCOCIN 275 MG IV (06:03)
--- NOTE | 2024-09-27 07:34 | W.PN.INTV ---
Today's Communication / Plan
Recommendations
Wean norepinephrine
Antibiotics
Follow-up cultures
If able to be weaned off norepinephrine may leave ICU-pulmonary will follow briefly
Outpatient pulmonary follow-up
Assessment
-
Patient is an 83-year-old male with previous history of IPF, CAD, hypertension, hyperlipidemia with dementia presenting status post mechanical fall. He reports that he has had frequent falls in the past few weeks, is unable to ambulate
independently with a cane. He does not ambulate with a walker. He feels his mental status is declining as well. He does not feel any worsening shortness of breath, cough or wheezing. CT obtained indicating slight progression of his IPF but no
significant changes. He is currently 93% on room air. He has not required oxygen at home. We are consulted for history of IPF 09/25/24.
Acute hypotension, possibly septic shock-unresponsive to fluids requiring pressors
Source lungs, decub, urine pending
MRSA bacteremia
Increasing lethargy/TME
Acute HFpEF, proBNP >10312
Status post mechanical fall
Melena, Hemoccult testing +
Mild anemia, acute blood loss
Hyponatremia, mild
Elevated CK, not consistent with rhabdo
Leukocytosis
DNR
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
Bronchiectasis without complication
IPF/Restrictive lung disease
Followed by Dr Taveras, last seen 09/2023
MVP
HTN
Dyslipidemia
Bradycardia/Frequent PVCs
Open heart surgery with pericardial injury 2019
Severe aortic stenosis s/p TAVR
IBS
Bilateral knee sx
3 hernia repairs
History of MRSA
Advancing dementia
Plan
Critically ill with bacteremia and pressors
Supplemental oxygen as needed-no oxygen was needed on admission-93% on room air
Nebulizers if needed-currently not bronchospastic
Aspiration precautions
Chest x-ray 09/26/2024-left lower lobe pneumonia, nondisplaced fracture through the distal right clavicle
Prior history of lung disease is noted including IPF--last OP note reviewed
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
6 minute walk test without hypoxemia at baseline
Pulmonary function test today does reveal moderate restriction and severely reduced diffusing capacity
Initial imaging on admission showing IPF overall stable with slight progression
Repeat CT showing more pleural effusion
This is more likely acute HF, less so rapid progression of IPF
Cultures reviewed
Blood cultures positive-MRSA 12/08
Influenza negative
Urine culture pending
Unable to produce sputum
Empiric antibiotics to cover MRSA as well-currently on vancomycin and cefepime
Infectious disease following-correspondence reviewed
Monitor mental status
Neurology evaluation-correspondence reviewed
Eventual diuresis as tolerated
Monitor renal function, electrolytes, intake/output, lower extremity edema and weight
Replace electrolytes as needed
Echocardiogram 09/24/2024-EF 60-65%, moderate mitral regurgitation, well-seated TAVR, PA systolic 44
Cardiology following-correspondence reviewed-would not recommend diuresis at this time
Weight loss noted, with poor appetite
Optimize nutrition
Overall picture of FTT in background of dementia
Prognosis overall poor, may need to update family
Monitor hemoglobin
Transfuse as needed
DVT [id number] on Lovenox 60 mg SQ every 12 hours
Nutrition with aspiration precautions
Physical therapy/Occupational Therapy
If able to be weaned off pressors then transfer out of ICU-pulmonary will follow briefly with pneumonia
Patient followed by Dr. Sutton in our office-saw 04/11/2023 and subsequently by Isabella HOPKINS on 09/07/2023-would recommend follow-up
Critical care statement: A total of 40 minutes of critical care time was provided for this patient today. This includes management of unstable vital signs, evaluation of the patient at bedside, reviewing the patient's pertinent medical records
including radiographs, microbiology, laboratory evaluations, and discussion with primary team, consultants, pharmacy, nutrition, physical therapy, case management, charge nurse, critical care nursing, and respiratory therapy.
Diagnostic Data
Chest X-Ray:
CT Scan: CAP 09/23/24- 1. Trace left pleural effusion.
2. Mild T10 and T12 compression fractures, both new from 04/05/2023 and likely acute/subacute. Recommend correlation for any point tenderness in this region.
3. No other significant acute abnormality identified in the chest, abdomen or pelvis, as described above. Stable changes of chronic interstitial lung disease.
4. Moderate diffuse colonic stool burden may reflect constipation.
CHEST 04/05/23- 1. 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 2. Nonspecific mildly prominent
mediastinal lymph nodes. 3. Cardiomegaly. 4. Prior TAVR. 5. Moderate coronary artery calcifications. 6. Borderline ectasia of the ascending thoracic aorta measuring 4.1 cm diameter.
Echo: 09/24/24- Normal left ventricular size and systolic function without regional wall motion abnormalities. LVEF 60-65%. Right ventricle is mildly dilated with normal systolic function. Biatrial enlargement. Bileaflet mitral valve prolapse with
moderate mitral regurgitation. Well-seated TAVR with normal function (peak/mean 19/8 mmHg). Mild to moderate tricuspid regurgitation. Estimated PASP 44 mmHg. Interatrial septum bowed to the right consistent with elevated left atrial pressure.
Compared to prior echocardiogram on 06/07/2024, mitral regurgitation has increased in severity. It was previously mild to moderate and is now solidly moderate. Aortic valve gradients are stable. PASP has increased from 28 mmHg to 44 mmHg. There is
now evidence of elevated left atrial pressure.
06/07/24- Normal left ventricular systolic function. LV ejection fraction is 55-60%. Posterior mitral valve prolapse. Mild/moderate mitral regurgitation. s/p TAVR. The peak/mean gradients across the valve are 20/10 mmHg. No aortic regurgitation is
seen. Mildly dilated right ventricle with normal systolic function. Mild/moderate tricuspid regurgitation. Normal PASP. Mildly dilated ascending aorta (4.1 cm).
Compared to 02/20/23: MR has improved from moderate to mild/moderate. Other findings stable.
PFT's: 09/2023- Pulmonary function test today does reveal moderate restriction and severely reduced diffusing capacity.
6 minute walk test without hypoxemia
Reports and relevant images were personally reviewed.
Subjective Dataa
Subjective Data
Date of Service:
Date of Service: September 27, 2024
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
Subjective:
Alert, no complaints of shortness of breath, chest pain or abdominal pain
Review of Systems
General: Other (Per HPI)
Objective Data
Data Reviewed
Vital Signs / I&O / Oxygen:
Vital Signs
Temp Pulse Resp BP Pulse Ox
99.7 F 75 16 115/58 99
09/27/24 03:17 09/27/24 06:00 09/27/24 06:00 09/27/24 06:00 09/27/24 06:00
Intake and Output
09/26/24 09/27/24 09/28/24
06:59 06:59 06:59
Intake Total 667.5 / 667.5 858.1 / 858.1
Output Total 160 / 160
Balance 667.5 / 667.5 698.1 / 698.1
SaO2 99
Nasal Cannula flow liters per 3
minute
Physical Exam
General: Respiratory Distress (n), Comfortable, Poor Appetite and Other (NAD)
HEENT: Normocephalic, Anicteric and Other (dry MM)
Cardiovascular: Regular Rhythm
Respiratory: Clear and Non-Labored Respirations
GI: Soft, Non Distended and Normal Bowel Sounds
Neurology: Awake, Alert and No Motor Deficits
Skin: Warm, Good Color, Cyanosis (n) and Jaundice (n)
Labs/Micro/Reports
Lab Data
09/27/24 03:48
09/27/24 03:48
Laboratory Results
09/26/24
11:50
pH 7.48 H
pCO2 35
pO2 60 L
HCO3 26.1
O2 Delivery Level Not Reportable
Microbiology
09/26/24 07:53 Blood/Venous Blood Culture - Preliminary
Positive culture in progress
09/26/24 04:14 Blood/Venous Blood Culture - Preliminary
Positive culture in progress
09/26/24 04:14 Blood/Venous Gram Stain - Preliminary
09/26/24 11:18 Nasal Swab Influenza Types A & B ([facility]) - Final
Negative for Influenza A & B, NAAT
Negative results must be combined with clinical observations
and patient history.
Nucleic Acid Amplification test (NAAT)performed on the
[employer] platform.
09/24/24 06:26 Nose MRSA Screen - Final
No Methicillin Resistant Staphylococcus aureus isolated.
--- NOTE | 2024-09-27 08:17 | PHA.VAN.FU ---
Vancomycin Assessment / Plan
- Assessment
Renal Function: Stable (BUN increased)
WBC's are: Trending Up
In the past 24 hrs, patient has been: Febrile
Concomitant Antimicrobials: cefepime
- Dosing Plan
Adjust Regimen to: dosing by level given increasing BUN
Patient received total of 2500mg to date (2 doses of 1250mg)
- Monitoring Plan
Random Level: 09/28 600
Will follow levels closely given bacteremia and increasing BUN
- Follow Up
Pharmacy will continue to follow.
Vancomycin Follow UP
- -
Patient Age: 83
Patient Sex: Male
Vancomycin Day #: 2
Indication: Bacteremia
Requesting Provider: Dr. Rodriguez / Joo
Pertinent Antimicrobial Allergies:
penicillins - unknown
Height / Weight:
Height 5 ft 10 in
Actual Weight 57.8 kg
IBW in k
- Vital Signs / Lab Results
Temp Pulse Resp BP Pulse Ox
99.7 F 75 16 115/58 99
09/27/24 03:17 09/27/24 06:00 09/27/24 06:00 09/27/24 06:00 09/27/24 06:00
Lab Results - Hematology
09/24/24 09/25/24 09/26/24
07:57 07:00 04:14
WBC 7.5 7.0 10.1
09/27/24
03:48
WBC 14.7 H
Lab Results - Chemistry
09/24/24 09/25/24 09/26/24
07:57 07:00 04:14
BUN 37 H 35 H 39 H
Creatinine 0.6 L 0.6 L 0.9
Estimated Creat Clear 79 79 53
09/27/24
03:48
BUN 59 H
Creatinine 0.9
Estimated Creat Clear 53
09/26/24
04:14
Lactic Acid 1.0
Lab Results - Urine
09/27/24 09/27/24 09/27/24
04:24 04:24 04:24
Urine Nitrite (Reflex) Cancelled Positive A
Leukocyte Esterase Rfl Cancelled Trace A
Ur Squamous Epith Cells >30
Microbiology Results
09/26/24 07:53 Blood Culture - Preliminary
Blood/Venous Positive culture in progress
Gram Stain - Final
09/26/24 04:14 Blood Culture - Preliminary
Blood/Venous Positive culture in progress
Gram Stain - Preliminary
09/26/24 11:18 Influenza Types A & B ([facility]) - Final
Nasal Swab Negative for Influenza A & B, NAAT
Negative results must be combined with clinical observations
and patient history.
Nucleic Acid Amplification test (NAAT)performed on the
[employer] platform.
09/24/24 06:26 MRSA Screen - Final
Nose No Methicillin Resistant Staphylococcus aureus isolated.
[2024-09-27] MEDS: ASPIR LOW (ENTERIC COATED) 81 MG PO (08:29)
[2024-09-27] MEDS: MIRALAX 17 GRAMS PO (08:29)
[2024-09-27] MEDS: PRAVACHOL 20 MG PO (08:29)
--- NOTE | 2024-09-27 08:50 | PTOTSP ---
Reviewed chart and noted pt transferred to ICU yesterday and PT/OT orders were not continued upon transfer. Will need new orders for PT and OT when stable to resume activity.
--- NOTE | 2024-09-27 09:58 | W.PN.HOSP.TC ---
Today's Communication/Plan
-
MRSA bacteremia
Continue Vancomycin as per ID
Pressors as needed
Appreciate ID and all specialists involved
Assessment / Plan
Assessment / Plan
Physical Exam
General: Not in acute distress
HEENT: Normocephalic
Respiratory: Fine rales bilaterally
Cardiac: S1/S2 and Regular Rhythm
GI: Soft and Non Tender. Positive bowel sounds.
Musculoskeletal: No Cyanosis and No Edema
Skin: Warm, Dry
Neuro: Alert. Awake. Responding to questions.
Psych: Calm

CT Chest/abd/pel W Iv Cont (as per radiologist's report)
'IMPRESSION:
1. Trace left pleural effusion.
2. Mild T10 and T12 compression fractures, both new from 04/05/2023 and likely acute/subacute. Recommend correlation for any point tenderness in this region.
3. No other significant acute abnormality identified in the chest, abdomen or pelvis, as described above. Stable changes of chronic interstitial lung disease.
4. Moderate diffuse colonic stool burden may reflect constipation.'
CTA of the chest with intravenous contrast (as per radiologist's report)
'IMPRESSION:
1. No evidence of pulmonary embolism or thoracic aortic dissection.
2. Trace left pleural effusion, new compared to 09/23/2024.
3. Changes of moderate interstitial fibrosis, unchanged compared to multiple prior studies, including 04/05/2023.
4. Mild dilation of the ascending thoracic aorta, which measures 3.7 cm in greatest orthogonal dimension. No significant change compared to prior studies, including 04/05/2023.
5. Stable prominence of the main pulmonary trunk, suggestive of pulmonary arterial hypertension in the correct clinical setting.'
Noncontrast CT examination of the abdomen and pelvis (as per radiologist's report)
'IMPRESSION:
1. No evidence of abdominal pelvic abscess or other acute pathology.
2. Small bubbles of air within the right anterior lower abdominal wall, likely resulting from subcutaneous injections. No body wall abscess.
3. Small left pleural effusion, also seen on CTA of the chest. Bibasilar interstitial fibrosis.'
Echocardiogram (as per bladder tier's report)
'CONCLUSIONS
Normal left ventricular size and systolic function without regional wall motion
abnormalities. LVEF 60-65%.
Right ventricle is mildly dilated with normal systolic function.
Biatrial enlargement.
Bileaflet mitral valve prolapse with moderate mitral regurgitation.
Well-seated TAVR with normal function (peak/mean 19/8 mmHg).
Mild to moderate tricuspid regurgitation. Estimated PASP 44 mmHg.
Interatrial septum bowed to the right consistent with elevated left atrial
pressure.
Compared to prior echocardiogram on 06/07/2024, mitral regurgitation has
increased in severity. It was previously mild to moderate and is now solidly
moderate. Aortic valve gradients are stable. PASP has increased from 28 mmHg
to 44 mmHg. There is now evidence of elevated left atrial pressure.'

Assessment/Plan
83-year-old male past medical history of aortic valve replacement, cardiac catheterization complicated by punctured pericardium, Alzheimer's dementia, hypertension, pulmonary fibrosis, BPH, hyperlipidemia, presented after being found in the bathtub.
He was reported to have fallen twice in the past week. He has been having progressive memory impairment over the past several months.
He was also noted to have blood in his underwear on the toilet today. On rectal examination by ER he had pinkish stool was Hemoccult positive. He has small sacral decubitus ulcer.
Vital signs unremarkable. Labs show creatinine kinase of 858. Labs otherwise unremarkable. Urinalysis unremarkable. IV fluids. Likely worsening falls and memory impairment from worsening dementia.
Check orthostatic vital signs. Wound care consulted. Monitor for further rectal bleeding and anemia. If further bleeding and anemia will require GI. Wound care consulted. PT/OT.
Hypotension, Lethargy, Fevers on 09/26/24 Morning
Acute Hypoxic Respiratory Insufficiency
MRSA Bacteremia with history of TAVR
-Oxygen started due to hypoxia, continue oxygen to maintain O2 saturation at least 90%
-Gave small bolus of IV fluids given patient's cardiac issues and mitral regurgitation
-Started broad spectrum antibiotics with Vancomycin, Cefepime and Flagyl --> now continue Vancomycin, Cefepime (Cefepime will possibly be discontinued) per ID
-Possible source of infection is patient's sacral wound
-Blood Cultures growing MRSA
-May need ALMA
-Check ESR and CRP
-Corn Husker consulted, appreciate their evaluation and recommendations
-Infectious Disease consulted, appreciate their evaluation and recommendations
-Appreciate cardiology input
-Levophed was stopped on 09/27/24 morning, continue to monitor
Hypomagnesemia
-Magnesium IV replacement ordered
-Recheck BMP and Magnesium
Frequent Falls with Mild Non-Traumatic Rhabdomyolysis
Concern for Orthostatic Hypotension -- RESOLVED
-Patient was given intravenous fluids
-Recheck CPK in AM --> CPK overall improved
-PT/OT
-Echo noted, as above
-Tele monitor
'Blood in Underwear'
-ED staff noted small sacral wound which appeared to have bleed recently. This is the likely source
-ED staff also noted pink stool which was heme-positive
-Hold on GI consult for now
-Monitor Hgb -- has been stable
-Heme-Test Stool still pending
Mild RV Dilation on September 2024 Echocardiogram
-Possibly for pulmonary fibrosis
-Consult pulmonary, appreciate evaluation and recommendations
Biatrial Enlargement
MVP with Moderate Mitral Regurgitation
Elevated left atrial pressure
-Worsened on September 2024 compared to previous
-Consult cardiology, appreciate their evaluation and recommendations
-Echo will need to be rechecked echo again at his next visit with Dr. Dueñas in October 2024.
History of TAVR
History of cardiac catheterization complicated by punctured pericardium
Coronary artery calcification, on aspirin and pravastatin
LUE Weakness and Pain
-Suspected secondary to falls/trauma
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
-Neurology consulted for stroke evaluation, appreciate their evaluation and recommendations, they mentioned okay to hold off on Brain MRI for now given patient's critical condition
-Continue Aspirin 81 mg daily
-Consider orthopedics consultation
Multilevel neural foraminal osseous encroachment, greatest on the left from C3-C7, as per radiologist's report from CT of the Cervical Spine
-Follow-up with senior marketing specialist/neurosurgery outpatient
Elevated pro-BNP and hypoxia requiring O2 by NC
-No diuretic at this time
Urinary Retention
-Was on Flomax outpatient, but PCP had stopped it (as per nurse on 09/27/24)
Constipation on CT Imaging from September 2024 Hospitalization
-Bowel regimen: Miralax daily
-Dulcolax suppository given on 09/24/24
-Large bowel movement reported by nurse on 09/25/24
Macrocytic Anemia
Thrombocytopenia
-Monitor CBC
-Iron studies and Vitamin B12 unremarkable
Hematuria on Urinalysis
-Discussed via [place] [facility] on 09/25/24, with urologist Dr. Carr who mentioned that this should be followed up outpatient, no need for inpatient urology evaluation
Compression Fractures on CT Imaging from September 2024 Hospitalization
-PT/OT
Alzheimer's Dementia
-Patient likely require more help at home or higher level of care
-Consult Case Management
-Monitor for mood/behavior changes during hospitalization
-Outpatient neuropsychological testing (if not already completed) to guide in therapeutic intervention.
Idiopathetic Pulmonary Fibrosis
-Stable
-Consulted pulmonary given RV dilation
Coronary Artery Calcification
-Continue aspirin
Hypertension
Hyperlipidemia
-Continue pravastatin
BPH
-Flomax recently stopped by PCP
-Monitor for retention
History of Asymptomatic Hyponatremia
History of Total knee arthroplasty
History of likely osteomyelitis of right fifth toe/surrounding cellulitis
History of MRSA
Underweight
DVT Prophylaxis: SCDs and Lovenox.
Diet/Speech: Regular Solids with Thin Liquids, as per speech
Code Status: DNR
On 09/26/24, I called patient's family (Wally Dowell) and explained patient's current status and need for transfer to ICU. All questions and concerns were answered to satisfaction.
Critically ill patient with MRSA bacteremia needing close monitoring in the ICU is a high-risk encounter.
Anticipated Discharge: > 48 hours
Subjective/Interval History
-
Date of Service: September 27, 2024
Patient was seen and examined. He appeared to be more alert and responsive, denied any new complaints.
Objective Data
-
Labs:
Laboratory Results
09/27/24
03:48
WBC 14.7 H
Hgb 11.7 L
Hct 33.8 L
Plt Count 125 L
Sodium 133 L
Potassium 4.1
Chloride 96 L
Carbon Dioxide 26
BUN 59 H
Creatinine 0.9
Glucose 111 H
Calcium 7.8 L
Vital Signs:
Vital Signs
Temp Pulse Resp BP Pulse Ox
99.7 F 75 16 115/58 99
09/27/24 03:17 09/27/24 06:00 09/27/24 06:00 09/27/24 06:00 09/27/24 06:00
I&O
09/26/24 09/27/24 09/28/24
06:59 06:59 06:59
Intake Total 667.5 / 667.5 858.1 / 865.6 135.0 / 135.0
Output Total 160 / 160
Balance 667.5 / 667.5 698.1 / 705.6 135.0 / 135.0
--- NOTE | 2024-09-27 10:01 | W.PN.CD ---
Today's Communication / Plan
-
I would not recommend diuretic at this time.
Please call us back with additional questions.
Impression / Plan
-
BACKGROUND: 83M with coronary artery calcification, pulmonary fibrosis, hypertension, dyslipidemia, severe aortic stenosis s/p TAVR, MVP with mitral regurgitation, and Alzheimer's dementia who presented after a fall. He has had a significant
decline over the past 3-4 weeks. Cardiology has been consulted for worsened MR on TTE.
Primary slot technician: Dr. Dueñas.
IMPRESSION/PLAN:
Fever, hypotension,septic shock
-improved, weaned off of pressors
Elevated pro-BNP and hypoxia requiring O2 by NC:
-patient weight stable, echo stable as below
-appears euvolemic, not requiring diuretic
Worsened Alzheimer's dementia with hallucination, per primary service
s/p TAVR (Grecia, 2019), stable on most recent echocardiogram this admission
MVP with moderate mitral regurgitation
Sinus bradycardia : follow telemetry, currently SR
Idiopathic pulmonary fibrosis with bronchiectasis,
Coronary artery calcification, on aspirin and pravastatin
h/o EP study, complicated by perforation, led to emergent open heart surgery (Grecia, 2001)
Echo 09/24/24 EF 60-65%MVP and modertae MR, TAVR . mean gradinet 8mmHg. No AR. MMild to mod TR . PASP 44mmHg
SUBJECTIVE:
patient is somewhat confused, but in no distress
DATA:
Transthoracic echocardiogram, 09/24/2024:
CONCLUSIONS
Normal left ventricular size and systolic function without regional wall motion
abnormalities. LVEF 60-65%.
Right ventricle is mildly dilated with normal systolic function.
Biatrial enlargement.
Bileaflet mitral valve prolapse with moderate mitral regurgitation.
Well-seated TAVR with normal function (peak/mean 19/8 mmHg).
Mild to moderate tricuspid regurgitation. Estimated PASP 44 mmHg.
Interatrial septum bowed to the right consistent with elevated left atrial
pressure.
Compared to prior echocardiogram on 06/07/2024, mitral regurgitation has
increased in severity. It was previously mild to moderate and is now solidly
moderate. Aortic valve gradients are stable. PASP has increased from 28 mmHg
to 44 mmHg. There is now evidence of elevated left atrial pressure.
Physical Exam
Vital Signs/Labs
Vital Signs
Temp Pulse Resp BP Pulse Ox
99.7 F 75 16 115/58 99
09/27/24 03:17 09/27/24 06:00 09/27/24 06:00 09/27/24 06:00 09/27/24 06:00
09/26/24 09/27/24 09/28/24
06:59 06:59 06:59
Actual Weight 57.776 kg 57.8 kg
09/27/24 03:48
09/27/24 03:48
Magnesium 1.5 mg/dl (1.6-2.3) L 09/26/24 04:14
09/26/24
04:14
Lrt-R-Bcpiugiyqzu Pept > 15076
Physical Exam
Constitutional: No acute distress
EENT: Moist mucous membranes
Cardiovascular: Rhythm & rate is regular, Pedal edema is absent, JVD pressure is normal and Systolic murmur present
Respiratory: Respiratory effort normal
Neuro/Psych: Alert
Data Reviewed
-
Date of Service: September 27, 2024
EKG: Other (Tele: NSR, PVC's)
Labs: Labs Reviewed by me
[2024-09-27] MEDS: LOVENOX 60 MG SC (12:09)
[2024-09-27] MEDS: MAXIPIME 2000 MG IV (12:09)
[2024-09-27] MEDS: STERILE WATER FOR INJECTION 10 ML IV (12:09)
--- NOTE | 2024-09-27 14:04 | W.PN.ID1 ---
Date of Service
Date of Service: September 27, 2024
Today's Communication
Continue vancomycin. Discontinue further cefepime. Repeat blood cultures.
Assessment / Plan
Fever
Bacteremia with MRSA
- hx TAVR
Normal white count with left shift
Elevated BNP
HTN
Alzheimer's dementia
Recommendations:
Blood cultures noted to be positive for MRSA, which is concerning given presence of TAVR.
Continue with vancomycin. Further cefepime can be discontinued.
Repeat blood cultures today.
May need ALMA.
Continue with vancomycin and cefepime for the present.
Cefepime dose can be decreased to 2 g IV every 12 hours
While patient remains on vancomycin, follow levels closely.
Check ESR and CRP.
����������������������������������������������������������
Chief Complaint
-: Bacteremia (MRSA)
Subjective / Review of Systems
Patient seen and examined. Appears brighter today. Denies specific pain.
Review of Systems: No Fever and No Chills
Vital Signs / Physical Exam
Vital Signs
Vital Signs
Temp Pulse Resp BP Pulse Ox
97.5 F 71 18 113/74 98
09/27/24 11:21 09/27/24 12:00 09/27/24 12:00 09/27/24 12:00 09/27/24 12:00
Physical Exam
Constitutional: Chronically Ill and Non-toxic
Eyes: No Conjunctival Hemorrhage and Sclera Anicteric
Cardiovascular: Regular Rate and S1/S2; Negative S3/S4 or Murmur
Pulmonary: Clear; Negative Wheezes, Rales or Rhonchi
Gastrointestinal: Soft, Non Tender and Non Distended
Extremities: Edema; Negative Cyanosis, Erythema, Splinter Hemorrhage or Janeway Lesions
Neurological: Awake
Psychological: Calm and Confused
Objective Data
Lab Data
Lab Results
09/27/24 03:48
09/27/24 03:48
Estimated Creat Clear 53 ml/min 09/27/24 03:48
Lactic Acid 1.0 mmol/L (0.7-2.0) 09/26/24 04:14
Total Bilirubin 0.9 mg/dl (0.2-1.3) 09/23/24 12:47
AST 68 U/L (17-59) H 09/23/24 12:47
ALT 29 U/L (0-50) 09/23/24 12:47
Alkaline Phosphatase 157 U/L (38-126) H 09/23/24 12:47
Most recent labs reviewed.
Micro Results:
09/26/24 04:14 Blood Culture - Preliminary
Blood/Venous Staph aureus MRSA
Gram Stain - Final
09/26/24 07:53 Blood Culture - Preliminary
Blood/Venous Staph aureus MRSA
Gram Stain - Final
09/27/24 04:24 Urine Culture - Pending
Urine
09/26/24 11:18 Influenza Types A & B ([facility]) - Final
Nasal Swab Negative for Influenza A & B, NAAT
Negative results must be combined with clinical observations
and patient history.
Nucleic Acid Amplification test (NAAT)performed on the
[employer] platform.
09/24/24 06:26 MRSA Screen - Final
Nose No Methicillin Resistant Staphylococcus aureus isolated.
Imaging:
09/26/2024 CXR chest (portable): Mild cardiomegaly noted. Median sternotomy wires and TAVR prostatic are unchanged. Moderate reticular interstitial thickening is seen bilaterally. Hazy opacity at the left lung base noted. Please see full
dictation for additional detail.
09/26/2024 CT abdomen/pelvis without contrast: No evidence of abdominal pelvic abscess or other acute pathology. Small bubbles of air within the right anterior lower abdominal wall likely resulting from subcutaneous injections. No body wall
abscess.
09/26/2024 CT chest: No evidence of PE or thoracic aortic dissection. Trace left pleural effusion. Changes of moderate interstitial fibrosis noted. Please see full dictation for additional detail.
Care Review
Plan reviewed with: Nurse
--- NOTE | 2024-09-27 14:30 | W.PN.NEURO.1 ---
Today's Communication / Plan
-
.
Subjective/Objective
Subjective Data
Date of Service: September 27, 2024
Neurology follow-up note
24h events: Normotensive on Levophed, fever has resolved. Left arm continues to be tender and weak
CT C spine-chronic degenerative changes of the cervical spine. Multilevel neural foraminal osseous encroachment, greatest on the left from C3-C7.
TSH-normal
PMH: dementia, idiopathic pulmonary fibrosis, HTN, DLP, moderate MR, IGT, Thrombocytopenia, BPH, diverticulosis, BMI 18
PSH: TAVR, Hernia Repair
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
FH:, not contributory to current presentation
All: PNC
ROS: Limited due to encephalopathy
General: Very slim.
Cardio: Regular rate and rhythm without murmur. Extremities are without cyanosis or edema.
Neuro:
Mental Status: Alert, oriented to name only. Poor attention. Expressive> receptive aphasia. Follows simple requests intermittently. No hemineglect.
Cranial Nerves: Pupils are equally round and reactive to light. EOMs full. Blink to threat bilaterally no ptosis. No nystagmus. Face symmetric. Impaired l hearing AU. The palate elevated well. SCMs and traps 5/5. Tongue midline. Mild
dysarthria. Mild hypophonia
Motor: Pain related to left arm proximal weakness. Distal muscle groups appear to be intact
Reflexes: Bilateral grasp
Coordination: No tremors myoclonic movements
Gait: deferred
Assessment and Plan:
I. Left painful proximal monoparesis Limited exam due to encephalopathy
II. Encephalopathy, likely mixed (neurodegenerative, infectious)
III. Rhabdomyolysis
-Fall and delirium precautions
-PT
-Aspirin 81 mg QD with close platelet monitoring
-Please contact neurology service if acute findings on brain MRI
-Ortho consult
I personally reviewed all radiology and labs along with past medical records pertinent to current medical problems. Total time spent in patient care is 35 minutes.
Thank you for allowing us to participate in the care of this patient. Please do not hesitate to contact us with any questions or concerns.
Objective Data
Vital Signs
Temp Pulse Resp BP Pulse Ox
36.4 C 71 18 113/74 98
09/27/24 11:21 09/27/24 12:00 09/27/24 12:00 09/27/24 12:00 09/27/24 12:00
Lab Results
09/27/24 03:48
09/27/24 03:48
Sodium 133 mmol/L (135-145) L 09/27/24 03:48
Potassium 4.1 mmol/L (3.5-5.1) 09/27/24 03:48
BUN 59 mg/dl (9-20) H 09/27/24 03:48
Glucose 111 mg/dl (70-99) H 09/27/24 03:48
Calcium 7.8 mg/dl (8.4-10.2) L 09/27/24 03:48
Phosphorus 3.4 mg/dl (2.5-4.5) 09/24/24 07:57
Lpb-N-Omdgfhrfkya Pept > 77120 pg/ml 09/26/24 04:14
Vitamin B12 902 pg/ml (239-931) 09/25/24 07:00
Patient Allergies
Penicillins Allergy (Verified 09/23/24 12:24)
Unknown
Vital Signs and Labs
-
Vital Signs and Labs:
Vital Signs
Temp Pulse Resp BP Pulse Ox
36.4 C 71 18 113/74 98
09/27/24 11:21 09/27/24 12:00 09/27/24 12:00 09/27/24 12:00 09/27/24 12:00
Lab Results
09/27/24 03:48
09/27/24 03:48
Sodium 133 mmol/L (135-145) L 09/27/24 03:48
Potassium 4.1 mmol/L (3.5-5.1) 09/27/24 03:48
BUN 59 mg/dl (9-20) H 09/27/24 03:48
Glucose 111 mg/dl (70-99) H 09/27/24 03:48
Calcium 7.8 mg/dl (8.4-10.2) L 09/27/24 03:48
Phosphorus 3.4 mg/dl (2.5-4.5) 09/24/24 07:57
Ksm-N-Arsfmdagsgv Pept > 94785 pg/ml 09/26/24 04:14
Vitamin B12 902 pg/ml (239-931) 09/25/24 07:00
Medications
-
Medications:
Generic Name Dose Route Start Last Admin
Trade Name Freq PRN Reason Stop Dose Admin
Acetaminophen 650 mg 09/23/24 19:26 09/26/24 20:16
Acetaminophen 325 Mg Tablet PO 10/21/24 19:25 650 mg
Q4HPRN PRN Administration
mild pain/ fever>100.5F
Aspirin 81 mg 09/24/24 08:00 09/27/24 08:29
Aspirin 81 Mg (Enteric Coated) Tablet PO 10/22/24 07:59 81 mg
DAILY CHRISTOPHER Administration
Cefepime HCl 2,000 mg 09/27/24 00:00 09/27/24 12:09
Cefepime Hcl 2,000 Mg/12.5 Ml Vial IV 2,000 mg
Q12H CHRISTOPHER Administration
Enoxaparin Sodium 60 mg 09/26/24 23:00 09/27/24 12:09
Enoxaparin Sodium 60 Mg/0.6 Ml Syringe SC 10/24/24 22:59 60 mg
Q12H CHRISTOPHER Administration
Norepinephrine Bitartrate 4 mg in 250 mls @ 0 mls/hr 09/26/24 21:15 09/26/24 21:36
Levophed IV 250 mls
PER PROTOCOL CHRISTOPHER Administration
Protocol
Per Protocol
Vancomycin HCl 1 each/ Device 0 mls @ 0 mls/hr 09/27/24 10:00
IV
PER PROTOCOL CHRISTOPHER
Protocol
As Directed
Polyethylene Glycol 17 grams 09/24/24 17:00 09/27/24 08:29
Polyethylene Glycol Powder 17 Grams Packet PO 10/22/24 16:59 17 grams
DAILY CHRISTOPHER Administration
Pravastatin Sodium 20 mg 09/24/24 08:00 09/27/24 08:29
Pravastatin 20 Mg Tablet PO 10/22/24 07:59 20 mg
DAILY CHRISTOPHER Administration
Sodium Chloride 0 flush 09/24/24 17:00 09/26/24 09:48
Sodium Chloride 0.9% (Flush) Syringe IV 10/22/24 16:59 1 flush
PER PROTOCOL CHRISTOPHER Administration
Sterile Water 10 ml 09/27/24 00:00 09/27/24 12:09
Sterile Water For Injection 10 Ml Vial IV 10/25/24 00:00 10 ml
Q12H CHRISTOPHER Administration
Home Medications
-
Home Medications
aspirin 81 mg tablet,delayed release 81 mg PO DAILY Blood Clot Prevention/Tx 07/24/23
cholecalciferol (vitamin D3) 25 mcg (1,000 unit) tablet (Vitamin D3) 25 mcg PO DAILY Supplement 07/24/23
pravastatin 20 mg tablet 20 mg PO DAILY High Cholesterol 07/24/23
Prevagen 1 cap PO DAILY Supplement 09/23/24
therapeutic multivitamin 1 tab PO DAILY Supplement 09/23/24
--- NOTE | 2024-09-27 15:06 | CM ---
CM following re:discharge planning.
Reviewed pt's chart, met with pt and spoke to pt's nephew Wally to update on discharge plan progress.
PT and OT continue to recommend SNF level of care.
Pt's nephew is aware that [facility] is out of network with [employer]. [facility] is out of network with [employer] and it needs to be checked whether or not pt has out of network benefits. [facility] and [facility] SNF denied a referral due to
bed unavailability.
Pt's nephew is aware, expressed his disappointment and he asked to reach out to [facility] and [facility] whether or they might have a bed available early next week and pt's nephew asked to send additional referral to [facility] and
[facility].
CM spoke to [facility] educational fundraising director and [facility] educational fundraising director and they stated they might have a bed available next week and they will looking for to accept the pt based on bed availability.
Additional referral sent to [facility] and [facility] and updated clinical sent to [facility] and [facility]
D/C plan: preferred SNF based on bed availability when pt is medically stable.
CM will follow to assist pt with discharge to a preferred SNF.
--- NOTE | 2024-09-27 17:00 | PTCARENOTE ---
PM care provided to the pt. He remains rigid with repositioning. Refused to be shaved. Hair was washed. Condom catheter changed and bladder scanned. Bruises more pronounced on his right knee, left lateral ribs and axilla. He was reminded several
times that he is in the hospital, and has been since Monday. Safe environment maintained.
--- NOTE | 2024-09-27 20:00 | PTCARENOTE ---
Patient received in bed, AAOX1, forgetful and uncooperative. NSR with first degree heart block, polymorphic PVCs, afebrile, blood pressure as documented. +1 edema to left upper extremity. Lungs diminished, poor effort. Pulse ox 98% on 3L.
Abdomen with hypoactive bowel sounds. Poor appetite noted. Bruising noted on right side of face, knees, sacral dressing intact. RDL PICC flushed and patent. Call davis within reach
[2024-09-27 20:35] LABS: Blood Urea Nitrogen 78 mg/dl (9-20); Calcium 7.9 mg/dl (8.4-10.2); Carbon Dioxide 26 mmol/L (22-30); Chloride 98 mmol/L (98-107); Estimated Creatinine Clearance 36 ml/min; Glucose 123 mg/dl (70-99); Magnesium 2.2 mg/dl (1.6-2.3); Potassium 4.5 mmol/L (3.5-5.1); Sodium 132 mmol/L (135-145); eGFR 55.19
--- NOTE | 2024-09-27 22:10 | PTCARENOTE ---
Patient refusing US and Lovenox
[2024-09-28] VITALS (26 sets, daily range): BP systolic 94–146; BP diastolic 53–100
[2024-09-28] MEDS: MAXIPIME 2000 MG IV ×3 (00:19→23:15)
[2024-09-28] MEDS: STERILE WATER FOR INJECTION 10 ML IV ×3 (00:19→23:15)
[2024-09-28 05:13] LABS: Vancomycin Random 13.2 ug/ml
--- NOTE | 2024-09-28 07:11 | W.PN.INTV ---
Today's Communication / Plan
Recommendations
Antibiotics per infectious disease
Follow-up cultures
Supplemental oxygen as needed-currently on room air
Transfer out of ICU-sound effects supervisor will sign off-please call pulmonary if respiratory issues arise
Assessment
-
Patient is an 83-year-old male with previous history of IPF, CAD, hypertension, hyperlipidemia with dementia presenting status post mechanical fall. He reports that he has had frequent falls in the past few weeks, is unable to ambulate
independently with a cane. He does not ambulate with a walker. He feels his mental status is declining as well. He does not feel any worsening shortness of breath, cough or wheezing. CT obtained indicating slight progression of his IPF but no
significant changes. He is currently 93% on room air. He has not required oxygen at home. We are consulted for history of IPF 09/25/24.
Acute hypotension, possibly septic shock-unresponsive to fluids requiring pressors
Source lungs, decub, urine pending
MRSA bacteremia
Increasing lethargy/TME
Acute HFpEF, proBNP >58220
Status post mechanical fall
Melena, Hemoccult testing +
Mild anemia, acute blood loss
Hyponatremia, mild
Elevated CK, not consistent with rhabdo
Leukocytosis
DNR
Conditions present TOP LOADER:
Bronchiectasis without complication
IPF/Restrictive lung disease
Followed by Dr Taveras, last seen 09/2023
MVP
HTN
Dyslipidemia
Bradycardia/Frequent PVCs
Open heart surgery with pericardial injury 2019
Severe aortic stenosis s/p TAVR
IBS
Bilateral knee sx
3 hernia repairs
History of MRSA
Advancing dementia
Plan
Hemodynamically improved-now off pressors
Supplemental oxygen as needed-no oxygen was needed on admission-93% on room air
Nebulizers if needed-currently not bronchospastic
Aspiration precautions
Chest x-ray 09/26/2024-left lower lobe pneumonia, nondisplaced fracture through the distal right clavicle
Prior history of lung disease is noted including IPF--last OP note reviewed
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
6 minute walk test without hypoxemia at baseline
Pulmonary function test today does reveal moderate restriction and severely reduced diffusing capacity
Initial imaging on admission showing IPF overall stable with slight progression
Repeat CT showing more pleural effusion
This is more likely acute HF, less so rapid progression of IPF
Cultures reviewed
Blood cultures positive-MRSA 12/08
Repeat blood cultures 09/28/2024-pending
Influenza negative
Urine culture no growth
Unable to produce sputum
Empiric antibiotics to cover MRSA as well-currently on vancomycin and cefepime
Infectious disease following-correspondence reviewed
Mental status has improved
Neurology evaluation-correspondence reviewed-encephalopathy likely mixed-neurodegenerative and infectious
MRI brain 09/28/2024-pending
Eventual diuresis as tolerated
Monitor renal function, electrolytes, intake/output, lower extremity edema and weight
Replace electrolytes as needed
Echocardiogram 09/24/2024-EF 60-65%, moderate mitral regurgitation, well-seated TAVR, PA systolic 44
Cardiology following-correspondence reviewed-would not recommend diuresis at this time-signed off 09/27/2024
Weight loss noted, with poor appetite
Optimize nutrition
Overall picture of FTT in background of dementia
Prognosis overall poor, may need to update family
Monitor hemoglobin
Transfuse as needed
DVT [id number] on Lovenox 60 mg SQ every 12 hours-changed to Lovenox 40 mg daily
Nutrition with aspiration precautions
Physical therapy/Occupational Therapy
Patient transferred to IMU-now on room air-96%-sound effects supervisor will sign off-call pulmonary if respiratory issues arise
Patient followed by Dr. Sutton in our office-saw 04/11/2023 and subsequently by Isabella HOPKINS on 09/07/2023-would recommend follow-up
Reviewed the patient's pertinent medical records including radiographs, microbiology, laboratory evaluations, and discussion with primary team, consultants, pharmacy, nutrition, physical therapy, case management, charge nurse, critical care
nursing, and respiratory therapy.
Diagnostic Data
Chest X-Ray:
CT Scan: CAP 09/23/24- 1. Trace left pleural effusion.
2. Mild T10 and T12 compression fractures, both new from 04/05/2023 and likely acute/subacute. Recommend correlation for any point tenderness in this region.
3. No other significant acute abnormality identified in the chest, abdomen or pelvis, as described above. Stable changes of chronic interstitial lung disease.
4. Moderate diffuse colonic stool burden may reflect constipation.
CHEST 04/05/23- 1. 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 2. Nonspecific mildly prominent
mediastinal lymph nodes. 3. Cardiomegaly. 4. Prior TAVR. 5. Moderate coronary artery calcifications. 6. Borderline ectasia of the ascending thoracic aorta measuring 4.1 cm diameter.
Echo: 09/24/24- Normal left ventricular size and systolic function without regional wall motion abnormalities. LVEF 60-65%. Right ventricle is mildly dilated with normal systolic function. Biatrial enlargement. Bileaflet mitral valve prolapse with
moderate mitral regurgitation. Well-seated TAVR with normal function (peak/mean 19/8 mmHg). Mild to moderate tricuspid regurgitation. Estimated PASP 44 mmHg. Interatrial septum bowed to the right consistent with elevated left atrial pressure.
Compared to prior echocardiogram on 06/07/2024, mitral regurgitation has increased in severity. It was previously mild to moderate and is now solidly moderate. Aortic valve gradients are stable. PASP has increased from 28 mmHg to 44 mmHg. There is
now evidence of elevated left atrial pressure.
06/07/24- Normal left ventricular systolic function. LV ejection fraction is 55-60%. Posterior mitral valve prolapse. Mild/moderate mitral regurgitation. s/p TAVR. The peak/mean gradients across the valve are 20/10 mmHg. No aortic regurgitation is
seen. Mildly dilated right ventricle with normal systolic function. Mild/moderate tricuspid regurgitation. Normal PASP. Mildly dilated ascending aorta (4.1 cm).
Compared to 02/20/23: MR has improved from moderate to mild/moderate. Other findings stable.
PFT's: 09/2023- Pulmonary function test today does reveal moderate restriction and severely reduced diffusing capacity.
6 minute walk test without hypoxemia
Reports and relevant images were personally reviewed.
Subjective Dataa
Subjective Data
Date of Service:
Date of Service: September 28, 2024
Chief Complaint: New Product Trainer Follow Up and Pulmonary Follow Up
Subjective:
No complaints of shortness of breath, chest pain, abdominal pain
Review of Systems
General: Other ( Per HPI)
Objective Data
Data Reviewed
Vital Signs / I&O / Oxygen:
Vital Signs
Temp Pulse Resp BP Pulse Ox
97.7 F 56 18 111/58 98
09/28/24 03:23 09/28/24 01:15 09/28/24 01:15 09/28/24 01:00 09/28/24 01:15
Intake and Output
09/27/24 09/28/24 09/29/24
06:59 06:59 06:59
Intake Total 858.1 / 865.6 495.0 / 495.0
Output Total 160 / 160 175 / 175
Balance 698.1 / 705.6 320.0 / 320.0
SaO2 98
Nasal Cannula flow liters per 3
minute
Physical Exam
General: Respiratory Distress (n), Comfortable, Poor Appetite and Other (NAD)
HEENT: Normocephalic, Anicteric and Other (dry MM)
Cardiovascular: Regular Rhythm
Respiratory: Clear and Non-Labored Respirations
GI: Soft, Non Distended and Normal Bowel Sounds
Neurology: Awake, Alert and No Motor Deficits
Skin: Warm, Good Color, Cyanosis (n) and Jaundice (n)
Labs/Micro/Reports
Lab Data
09/27/24 03:48
09/27/24 20:04
Microbiology
09/26/24 04:14 Blood/Venous Blood Culture - Preliminary
Staph aureus MRSA
09/26/24 04:14 Blood/Venous Gram Stain - Final
09/26/24 07:53 Blood/Venous Blood Culture - Preliminary
Staph aureus MRSA
09/26/24 07:53 Blood/Venous Gram Stain - Final
09/26/24 11:18 Nasal Swab Influenza Types A & B ([facility]) - Final
Negative for Influenza A & B, NAAT
Negative results must be combined with clinical observations
and patient history.
Nucleic Acid Amplification test (NAAT)performed on the
[employer] platform.
09/24/24 06:26 Nose MRSA Screen - Final
No Methicillin Resistant Staphylococcus aureus isolated.
[2024-09-28 07:34] LABS: Erythrocyte Sed Rate 48 mm/hour (0-20)
--- NOTE | 2024-09-28 07:36 | W.PN.HOSP.TC ---
Today's Communication/Plan
-
Continue Vancomycin
Follow repeat cultures
Assessment / Plan
Assessment / Plan
Physical Exam
General: Not in acute distress
HEENT: Normocephalic
Respiratory: Fine rales bilaterally
Cardiac: S1/S2 and Regular Rhythm
GI: Soft and Non Tender. Positive bowel sounds.
Musculoskeletal: No Cyanosis and No Edema
Skin: Warm, Dry
Neuro: Alert. Awake. Responding to questions.
Psych: Calm

CT Chest/abd/pel W Iv Cont (as per radiologist's report)
'IMPRESSION:
1. Trace left pleural effusion.
2. Mild T10 and T12 compression fractures, both new from 04/05/2023 and likely acute/subacute. Recommend correlation for any point tenderness in this region.
3. No other significant acute abnormality identified in the chest, abdomen or pelvis, as described above. Stable changes of chronic interstitial lung disease.
4. Moderate diffuse colonic stool burden may reflect constipation.'
CTA of the chest with intravenous contrast (as per radiologist's report)
'IMPRESSION:
1. No evidence of pulmonary embolism or thoracic aortic dissection.
2. Trace left pleural effusion, new compared to 09/23/2024.
3. Changes of moderate interstitial fibrosis, unchanged compared to multiple prior studies, including 04/05/2023.
4. Mild dilation of the ascending thoracic aorta, which measures 3.7 cm in greatest orthogonal dimension. No significant change compared to prior studies, including 04/05/2023.
5. Stable prominence of the main pulmonary trunk, suggestive of pulmonary arterial hypertension in the correct clinical setting.'
Noncontrast CT examination of the abdomen and pelvis (as per radiologist's report)
'IMPRESSION:
1. No evidence of abdominal pelvic abscess or other acute pathology.
2. Small bubbles of air within the right anterior lower abdominal wall, likely resulting from subcutaneous injections. No body wall abscess.
3. Small left pleural effusion, also seen on CTA of the chest. Bibasilar interstitial fibrosis.'
Echocardiogram (as per knot tier's report)
'CONCLUSIONS
Normal left ventricular size and systolic function without regional wall motion
abnormalities. LVEF 60-65%.
Right ventricle is mildly dilated with normal systolic function.
Biatrial enlargement.
Bileaflet mitral valve prolapse with moderate mitral regurgitation.
Well-seated TAVR with normal function (peak/mean 19/8 mmHg).
Mild to moderate tricuspid regurgitation. Estimated PASP 44 mmHg.
Interatrial septum bowed to the right consistent with elevated left atrial
pressure.
Compared to prior echocardiogram on 06/07/2024, mitral regurgitation has
increased in severity. It was previously mild to moderate and is now solidly
moderate. Aortic valve gradients are stable. PASP has increased from 28 mmHg
to 44 mmHg. There is now evidence of elevated left atrial pressure.'
Chest x-ray 09/26/2024-left lower lobe pneumonia, nondisplaced fracture through the distal right clavicle

Assessment/Plan
83-year-old male past medical history of aortic valve replacement, cardiac catheterization complicated by punctured pericardium, Alzheimer's dementia, hypertension, pulmonary fibrosis, BPH, hyperlipidemia, presented after being found in the bathtub.
He was reported to have fallen twice in the past week. He has been having progressive memory impairment over the past several months.
He was also noted to have blood in his underwear on the toilet today. On rectal examination by ER he had pinkish stool was Hemoccult positive. He has small sacral decubitus ulcer.
Vital signs unremarkable. Labs show creatinine kinase of 858. Labs otherwise unremarkable. Urinalysis unremarkable. IV fluids. Likely worsening falls and memory impairment from worsening dementia.
Check orthostatic vital signs. Wound care consulted. Monitor for further rectal bleeding and anemia. If further bleeding and anemia will require GI. Wound care consulted. PT/OT.
Hypotension, Lethargy, Fevers on 09/26/24 Morning
Acute Hypoxic Respiratory Insufficiency
MRSA Bacteremia with history of TAVR
-Oxygen started due to hypoxia, continue oxygen to maintain O2 saturation at least 90%
-Gave small bolus of IV fluids given patient's cardiac issues and mitral regurgitation
-Started broad spectrum antibiotics with Vancomycin, Cefepime and Flagyl --> now continue Vancomycin, Cefepime (Cefepime will possibly be discontinued) per ID
-Possible source of infection is patient's sacral wound
-Blood Cultures growing MRSA
-Follow repeat blood cultures
-May need ALMA
-ESR and CRP are both elevated
-Jogger Operator consulted, appreciate their evaluation and recommendations
-Infectious Disease consulted, appreciate their evaluation and recommendations
-Appreciate cardiology input
-Levophed was stopped on 09/27/24 morning, continue to monitor
Hypomagnesemia
-Magnesium IV replacement ordered
-Recheck BMP and Magnesium
Paranoid Behavior/Refusal of Care on 09/28/24 AM
-Psychiatry consulted, appreciate their evaluation and recommendations
Frequent Falls with Mild Non-Traumatic Rhabdomyolysis
Concern for Orthostatic Hypotension -- RESOLVED
-Patient was given intravenous fluids
-Recheck CPK in AM --> CPK overall improved
-PT/OT
-Echo noted, as above
-Tele monitor
'Blood in Underwear'
-ED staff noted small sacral wound which appeared to have bleed recently. This is the likely source
-ED staff also noted pink stool which was heme-positive
-Hold on GI consult for now
-Monitor Hgb -- has been stable
-Heme-Test Stool still pending
Mild RV Dilation on September 2024 Echocardiogram
-Possibly for pulmonary fibrosis
-Consult pulmonary, appreciate evaluation and recommendations
Biatrial Enlargement
MVP with Moderate Mitral Regurgitation
Elevated left atrial pressure
-Worsened on September 2024 compared to previous
-Consult cardiology, appreciate their evaluation and recommendations
-Echo will need to be rechecked echo again at his next visit with Dr. Dueñas in October 2024.
History of TAVR
History of cardiac catheterization complicated by punctured pericardium
Coronary artery calcification, on aspirin and pravastatin
LUE Weakness and Pain
-Suspected secondary to falls/trauma
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
-Neurology consulted for stroke evaluation, appreciate their evaluation and recommendations, they mentioned okay to hold off on Brain MRI for now given patient's critical condition
-Continue Aspirin 81 mg daily
-Consider orthopedics consultation
Left Upper Extremity Cephalic Vein Thrombosis on Peripheral Vascular Ultrasound from 09/26/24
-This is a superficial vein thrombosis, no need for anticoagulation
-Continue supportive care
Multilevel neural foraminal osseous encroachment, greatest on the left from C3-C7, as per radiologist's report from CT of the Cervical Spine
-Follow-up with radiologic electronic specialist/neurosurgery outpatient
Elevated pro-BNP and hypoxia requiring O2 by NC
-No diuretic at this time
Urinary Retention
-Was on Flomax outpatient, but PCP had stopped it (as per nurse on 09/27/24)
Constipation on CT Imaging from September 2024 Hospitalization
-Bowel regimen: Miralax daily
-Dulcolax suppository given on 09/24/24
-Large bowel movement reported by nurse on 09/25/24
Macrocytic Anemia
Thrombocytopenia
-Monitor CBC
-Iron studies and Vitamin B12 unremarkable
Hematuria on Urinalysis
-Discussed via [place] [facility] on 09/25/24, with urologist Dr. Carr who mentioned that this should be followed up outpatient, no need for inpatient urology evaluation
Compression Fractures on CT Imaging from September 2024 Hospitalization
-PT/OT
Alzheimer's Dementia
-Patient likely require more help at home or higher level of care
-Consult Case Management
-Monitor for mood/behavior changes during hospitalization
-Outpatient neuropsychological testing (if not already completed) to guide in therapeutic intervention.
Idiopathetic Pulmonary Fibrosis
-Stable
-Consulted pulmonary given RV dilation
Coronary Artery Calcification
-Continue aspirin
Hypertension
Hyperlipidemia
-Continue pravastatin
BPH
-Flomax recently stopped by PCP
-Monitor for retention
History of Asymptomatic Hyponatremia
History of Total knee arthroplasty
History of likely osteomyelitis of right fifth toe/surrounding cellulitis
History of MRSA
Underweight
DVT Prophylaxis: SCDs and Lovenox.
Diet/Speech: Regular Solids with Thin Liquids, as per speech
Code Status: DNR
On 09/26/24, I called patient's family (Wally Dowell) and explained patient's current status and need for transfer to ICU. All questions and concerns were answered to satisfaction.
Patient with MRSA bacteremia is a high-risk encounter.
Anticipated Discharge: > 48 hours
Subjective/Interval History
-
Date of Service: September 28, 2024
Patient was seen and examined. Although he denied symptoms, earlier today he was having paranoid thoughts and refusing some medical care, including blood draws, as per nurse.
Objective Data
-
Labs:
Laboratory Results
09/27/24
20:04
Sodium 132 L
Potassium 4.5
Chloride 98
Carbon Dioxide 26
BUN 78 H
Creatinine 1.3
Glucose 123 H
Calcium 7.9 L
Vital Signs:
Vital Signs
Temp Pulse Resp BP Pulse Ox
97.7 F 56 18 111/58 98
09/28/24 03:23 09/28/24 01:15 09/28/24 01:15 09/28/24 01:00 09/28/24 01:15
I&O
09/27/24 09/28/24 09/29/24
06:59 06:59 06:59
Intake Total 858.1 / 865.6 495.0 / 495.0
Output Total 160 / 160 175 / 175
Balance 698.1 / 705.6 320.0 / 320.0
--- NOTE | 2024-09-28 07:52 | W.PN.ID1 ---
Date of Service
Date of Service: September 28, 2024
Today's Communication
Continue antibiotics. Check repeat blood culture today.
Assessment / Plan
Fever
- improved
Bacteremia with MRSA
- hx TAVR
Leukocytosis
Elevated BNP
Elevated ESR/CRP
HTN
Alzheimer's dementia
Recommendations:
Admission blood cultures positive for MRSA, concerning given presence of TAVR.
Continue with vancomycin. Cefepime previously discontinued. Monitor Vanco levels closely.
Single repeat blood culture performed yesterday (patient refused second set). Patient advised that continued refusal of blood cultures may negatively impact his care.
Follow repeat blood cultures. Will check additional blood culture set today.
May ultimately need ALMA.
Continue to follow clinically.
����������������������������������������������������������
Chief Complaint
-: Leukocytosis and Bacteremia (MRSA)
Subjective / Review of Systems
Patient seen and examined. Reviewed with nurse who notes patient quite belligerent overnight. Patient refused second set of blood cultures yesterday when ordered.
Review of Systems: No Fever
Vital Signs / Physical Exam
Vital Signs
Vital Signs
Temp Pulse Resp BP Pulse Ox
97.7 F 56 18 111/58 98
09/28/24 03:23 09/28/24 01:15 09/28/24 01:15 09/28/24 01:00 09/28/24 01:15
Physical Exam
Constitutional: Chronically Ill and Non-toxic
Eyes: No Conjunctival Hemorrhage and Sclera Anicteric
Cardiovascular: Regular Rate and S1/S2; Negative S3/S4 or Murmur
Pulmonary: Clear; Negative Wheezes, Rales or Rhonchi
Gastrointestinal: Soft, Non Tender and Non Distended
Extremities: Edema; Negative Cyanosis, Erythema, Splinter Hemorrhage, Calf Swelling or Janeway Lesions
Skin: Negative Rash or Jaundice
Neurological: Awake
Psychological: Calm and Confused
Objective Data
Lab Data
Lab Results
09/27/24 03:48
09/27/24 20:04
ESR 48 mm/hour (0-20) H 09/28/24 04:25
Estimated Creat Clear 36 ml/min 09/27/24 20:04
Lactic Acid 1.0 mmol/L (0.7-2.0) 09/26/24 04:14
Total Bilirubin 0.9 mg/dl (0.2-1.3) 09/23/24 12:47
AST 68 U/L (17-59) H 09/23/24 12:47
ALT 29 U/L (0-50) 09/23/24 12:47
Alkaline Phosphatase 157 U/L (38-126) H 09/23/24 12:47
C-Reactive Protein 21.40 mg/L (0.0-10.00) H 09/28/24 04:25
Most recent labs reviewed.
Chest X-Ray: Image Reviewed and Report Reviewed
Micro Results:
09/26/24 04:14 Blood Culture - Preliminary
Blood/Venous Staph aureus MRSA
Gram Stain - Final
09/27/24 14:25 Blood Culture - Pending
Blood/Venous
09/26/24 07:53 Blood Culture - Preliminary
Blood/Venous Staph aureus MRSA
Gram Stain - Final
09/27/24 04:24 Urine Culture - Pending
Urine
09/26/24 11:18 Influenza Types A & B ([facility]) - Final
Nasal Swab Negative for Influenza A & B, NAAT
Negative results must be combined with clinical observations
and patient history.
Nucleic Acid Amplification test (NAAT)performed on the
[employer] platform.
09/24/24 06:26 MRSA Screen - Final
Nose No Methicillin Resistant Staphylococcus aureus isolated.
Imaging:
09/26/2024 CXR chest (portable): Mild cardiomegaly noted. Median sternotomy wires and TAVR prostatic are unchanged. Moderate reticular interstitial thickening is seen bilaterally. Hazy opacity at the left lung base noted. Please see full
dictation for additional detail.
09/26/2024 CT abdomen/pelvis without contrast: No evidence of abdominal pelvic abscess or other acute pathology. Small bubbles of air within the right anterior lower abdominal wall likely resulting from subcutaneous injections. No body wall
abscess.
09/26/2024 CT chest: No evidence of PE or thoracic aortic dissection. Trace left pleural effusion. Changes of moderate interstitial fibrosis noted. Please see full dictation for additional detail.
--- NOTE | 2024-09-28 08:54 | PHA.VAN.FU ---
Vancomycin Assessment / Plan
- Assessment
Renal Function: SCR Increasing (0.6->0.9->1.3 (BUN 59->78))
WBC's are: Trending Up (10.1 ->14.7)
In the past 24 hrs, patient has been: Afebrile
Concomitant Antimicrobials: cefepime
- Assessment - Therapeutic Drug Monitoring
Random Level: 13.2 - after 1250 mg 09/26 14:38 and 09/27 06:03
- Dosing Plan
Continue: dose by random level due to incr SCr and BUN
Dosing by Level: Re-dose today (1000 mg x 1 today)
Dosing Comments: giving lower dose today due to jump in both SCr and BUN
- Monitoring Plan
Random Level: repeat random level AM 09/29
Monitoring Comments: monitor vanc levels closely - MRSA bacteremia
- Follow Up
Pharmacy will continue to follow.
Vancomycin Follow UP
- -
Patient Age: 83
Patient Sex: Male
Vancomycin Day #: 3
Indication: Bacteremia
Requesting Provider: Dr. Rodriguez / Joo
Pertinent Antimicrobial Allergies:
penicillins - unknown
Height / Weight:
Height 5 ft 10 in
Actual Weight 57.8 kg
IBW in k
- Vital Signs / Lab Results
Temp Pulse Resp BP Pulse Ox
97.3 F 56 18 111/58 98
09/28/24 08:14 09/28/24 01:15 09/28/24 01:15 09/28/24 01:00 09/28/24 01:15
Lab Results - Hematology
09/26/24 09/27/24
04:14 03:48
WBC 10.1 14.7 H
Lab Results - Chemistry
09/25/24 09/26/24 09/27/24
07:00 04:14 03:48
BUN 35 H 39 H 59 H
Creatinine 0.6 L 0.9 0.9
Estimated Creat Clear 79 53 53
09/27/24
20:04
BUN 78 H
Creatinine 1.3
Estimated Creat Clear 36
09/26/24
04:14
Lactic Acid 1.0
Microbiology Results
09/26/24 04:14 Blood Culture - Preliminary
Blood/Venous Staph aureus MRSA
Gram Stain - Final
09/26/24 07:53 Blood Culture - Preliminary
Blood/Venous Staph aureus MRSA
Gram Stain - Final
09/26/24 11:18 Influenza Types A & B ([facility]) - Final
Nasal Swab Negative for Influenza A & B, NAAT
Negative results must be combined with clinical observations
and patient history.
Nucleic Acid Amplification test (NAAT)performed on the
[employer] platform.
Therapeutic Drug Monitoring
Random Vancomycin 13.2 ug/ml 09/28/24 04:25
[2024-09-28] MEDS: MIRALAX 17 GRAMS PO (09:07)
[2024-09-28] MEDS: ASPIR LOW (ENTERIC COATED) 81 MG PO (09:07)
[2024-09-28] MEDS: PRAVACHOL 20 MG PO (09:07)
[2024-09-28] MEDS: VANCOCIN 200 IV (09:19)
--- NOTE | 2024-09-28 12:28 | PTCARENOTE ---
Pt received in bed @ 0700. Oriented to self. Hard of hearing. Evasive, defensive answers. Suspicious of staff's intentions and quick to anger. Pt adamant in refusal of ordered blood cultures. 'This is too much! You're just piling on now! No!'
Education attempted on importance of blood cultures but refusal continued. Will attempt to try again. Pt also refusing MRI of the brain at this time. Education attempted. 'Absolutely not! You care, but I dont care!' SaO2 95% on room air. Lungs
diminished. Occasional dry cough. Sinus rhythm with 1st degree block and PAC's and PVC's. Occasional runs of Bigeminy. +1 LUE edema and +2 B/L LE edema. (+) appetite. Pt ate 100% of breakfast. Removed condom catheter. Incontinent moderate amount of
lauren urine. Condom catheter #21 replaced. (R) DL PICC with (+) blood return; flushed. [facility] cloth bath provided and linens changed. Lotion to back.
[2024-09-28 13:26] LABS: % Basophils 0.1 % (0-2); % Immature Granulocytes 0.6 % (0-0.5); % Lymphocytes 5.3 % (20.5-51.1); % Monocytes 5.5 % (1.7-9.3); % Neutrophils 87.5 % (42.2-75.2); Absolute Eosinophils 0.1 10^3/uL (0-0.7); Absolute Lymphocytes 0.4 10^3/uL (1.2-3.4); Absolute Monocytes 0.4 10^3/uL (0.1-0.6); Absolute Neutrophils 6.3 10^3/uL (1.4-6.5); Hematocrit 31.6 % (39.0-52.0); Hemoglobin 10.6 g/dL (13.0-18.0); Mean Corp Hgb Conc. 33.5 g/dL (33.0-37.0); Mean Corpuscular Hgb 32.7 pg (27.0-31.0); Mean Corpuscular Volume 97.5 fL (80.0-94.0); Mean Platelet Volume 9.5 fL (7.4-10.4); Nucleated Red Blood Cells % 0 % (-); Platelet Count 112 10^3/uL (130-400); Red Blood Cell Count 3.24 10^6/uL (4.70-6.10); Red Cell Dist. Width 13.2 % (11.5-14.5); White Blood Cell Count 7.2 10^3/uL (4.8-10.8)
--- NOTE | 2024-09-28 13:37 | PTCARENOTE ---
Family at bedside. Pt remains confused but agreeable to blood cultures with family's encouragement. Blood cultures drawn and sent.
[2024-09-28 13:47] LABS: ALT (SGPT) 32 U/L (0-50); AST (SGOT) 50 U/L (17-59); Albumin 2.3 g/dl (3.5-5.0); Alkaline Phosphatase 76 U/L (38-126); Blood Urea Nitrogen 93 mg/dl (9-20); Carbon Dioxide 26 mmol/L (22-30); Chloride 99 mmol/L (98-107); Estimated Creatinine Clearance 36 ml/min; Glucose 122 mg/dl (70-99); Potassium 4.4 mmol/L (3.5-5.1); Sodium 133 mmol/L (135-145); Total Bilirubin 0.5 mg/dl (0.2-1.3); Total Protein 5.3 g/dl (6.3-8.2); eGFR 55.19
--- NOTE | 2024-09-28 14:49 | CS.PSYCHR ---
Consult Summary - Psychiatry
-
Pt is an 83 y/o male with Alzheimer's dementia who presented after falling. Pt's family reported they found him lying in the bathtub. Family states pt has had noticeable decline over the last 6 weeks, not communicating as much/appears to have more
word-finding difficulty, has visual hallucinations and will think he is somewhere else- thought he was on a train when in the bathtub. Family denies pt has any parkinson's symptoms. Pt admitted with TME, diagnosed with MRSA bacteremia. Psychiatry
asked to evaluate due to pt's refusal of tests/care and paranoid ideation. Reviewed with nursing staff- pt allowed blood cultures today with family present; pt seen eating with assist from family. Pt alert, calm, cooperative with family present,
unable to give any meaningful information, rambling/irrelevant answers. Pt is alert, making eye contact, resting calmly in bed. Family states preference not to start any psychotropic medication for now.
QTc 509 on 09/26/24.
PMH: pulmonary fibrosis, coronary artery calcification, hypertension, hyperlipidemia, Alzheimer's Dementia
Psych Hx: Alzheimer's dementia; no other psychiatric history
SH: retired, living independently in an apartment; nephew lives nearby
MSE: alert, calm, rambling speech, unable to give relevant answers, expressed some reservations about people coming into his room, oriented to name only. No agitation, no overt signs of psychosis
Insight appears poor
Imp: Dementia, with reported visual hallucinations/recent progressive decline per family
Encephalopathy- neurodegenerative/infectious
Rec: would hold off antipsychotic medication for now, since pt is more cooperative with care when family present/ given family preference, prolonged QT
will follow, consider antipsychotic med if mental status/ behavior worsens or compromises care
[2024-09-28] MEDS: LOVENOX 40 MG SC (18:03)
--- NOTE | 2024-09-28 20:00 | PTCARENOTE ---
Patient received in bed, AAOx1. NSR with PVCs on monitor, afebrile, blood pressure as documented. Palpable pulses throughout, trace edema to the left arm. Lungs diminished, pulse ox 97% on room air. Abdomen soft, hypoactive bowel sounds.
appetite improving. Condom cath draining small amount of lauren urine. Bruises noted on face, knees and left flank. Sacral dressing intact, RDL PICC flushed and patent. Bed alarm engaged. Call davis within reach
[2024-09-28] MEDS: TYLENOL 650 MG PO (21:53)
[2024-09-29] VITALS (10 sets, daily range): BP systolic 124–151; BP diastolic 54–98; PULSE 70–71; BMI 19.5
[2024-09-29 04:39] LABS: % Basophils 0.2 % (0-2); % Eosinophils 2.9 % (0-6); % Immature Granulocytes 0.6 % (0-0.5); % Lymphocytes 8.8 % (20.5-51.1); % Monocytes 8.6 % (1.7-9.3); % Neutrophils 78.9 % (42.2-75.2); Absolute Eosinophils 0.2 10^3/uL (0-0.7); Absolute Immature Granulocytes 0.1 10^3/uL (0-0.05); Absolute Lymphocytes 0.7 10^3/uL (1.2-3.4); Absolute Monocytes 0.7 10^3/uL (0.1-0.6); Absolute Neutrophils 6.6 10^3/uL (1.4-6.5); Hematocrit 31.7 % (39.0-52.0); Hemoglobin 10.9 g/dL (13.0-18.0); Mean Corp Hgb Conc. 34.4 g/dL (33.0-37.0); Mean Corpuscular Hgb 32.5 pg (27.0-31.0); Mean Corpuscular Volume 94.6 fL (80.0-94.0); Mean Platelet Volume 9.8 fL (7.4-10.4); Nucleated Red Blood Cells % 0 % (-); Platelet Count 102 10^3/uL (130-400); Red Blood Cell Count 3.35 10^6/uL (4.70-6.10); Red Cell Dist. Width 12.8 % (11.5-14.5); White Blood Cell Count 8.4 10^3/uL (4.8-10.8)
[2024-09-29 05:13] LABS: Blood Urea Nitrogen 105 mg/dl (9-20); Calcium 8.2 mg/dl (8.4-10.2); Carbon Dioxide 24 mmol/L (22-30); Chloride 101 mmol/L (98-107); Estimated Creatinine Clearance 39 ml/min; Glucose 111 mg/dl (70-99); Magnesium 2.4 mg/dl (1.6-2.3); Potassium 4.3 mmol/L (3.5-5.1); Sodium 133 mmol/L (135-145); eGFR 55.19
[2024-09-29] MEDS: MIRALAX 17 GRAMS PO (07:11)
[2024-09-29] MEDS: ASPIR LOW (ENTERIC COATED) 81 MG PO (07:11)
[2024-09-29] MEDS: PRAVACHOL 20 MG PO (07:11)
--- NOTE | 2024-09-29 09:25 | PHA.VAN.FU ---
Addendum entered and electronically signed by Marlon Maharaj (Howard) [facility] 09/29/24 09:48:
Vanco level 15.0 at 09/29/24 0430 ~19hrs after Vanco 1G dose given 09/28/24
Original Note:
Vancomycin Assessment / Plan
- Assessment
Renal Function: Stable
Concomitant Antimicrobials: Cefepime
- Dosing Plan
Dosing by Level: Re-dose today
Dosing Comments: Vanco 1000mg x1
- Monitoring Plan
Random Level: Random level 09/30/24 AM 0530
- Follow Up
Pharmacy will continue to follow.
Vancomycin Follow UP
- -
Patient Age: 83
Patient Sex: Male
Vancomycin Day #: 4
Indication: Bacteremia
Requesting Provider: Dr. Rodriguez / Joo
Pertinent Antimicrobial Allergies:
penicillins - unknown
Height / Weight:
Height 5 ft 10 in
Actual Weight 61.6 kg
IBW in k
- Vital Signs / Lab Results
Temp Pulse Resp BP Pulse Ox
97.8 F 67 20 143/55 95
09/29/24 08:17 09/29/24 04:00 09/29/24 04:00 09/29/24 04:00 09/28/24 20:00
Lab Results - Hematology
09/27/24 09/28/24 09/29/24
03:48 13:18 04:30
WBC 14.7 H 7.2 8.4
Lab Results - Chemistry
09/27/24 09/27/24 09/28/24
03:48 20:04 13:18
BUN 59 H 78 H 93 H
Creatinine 0.9 1.3 1.3
Estimated Creat Clear 53 36 36
Albumin 2.3 L
09/29/24
04:30
BUN 105 H*
Creatinine 1.3
Estimated Creat Clear 39
Albumin
Microbiology Results
09/26/24 07:53 Blood Culture - Final
Blood/Venous Staph aureus MRSA
Gram Stain - Final
09/27/24 14:25 Blood Culture - Preliminary
Blood/Venous Positive culture in progress
Gram Stain - Preliminary
09/27/24 04:24 Urine Culture - Final
Urine NO GROWTH
09/26/24 04:14 Blood Culture - Final
Blood/Venous Staph aureus MRSA
Gram Stain - Final
Therapeutic Drug Monitoring
Random Vancomycin 15.0 ug/ml 09/29/24 04:30
--- NOTE | 2024-09-29 09:37 | W.PN.ID1 ---
Date of Service
Date of Service: September 29, 2024
Today's Communication
Continue antibiotics.
Assessment / Plan
Fever
- improved
Bacteremia with MRSA
- sustained
- hx TAVR
Leukocytosis
- improved
Elevated BNP
Elevated ESR/CRP
HTN
Alzheimer's dementia
Recommendations:
Blood cultures positive for MRSA, concerning given presence of TAVR.
Continue with vancomycin. Monitor Vanco levels closely.
Follow repeat blood cultures. Will check additional blood culture set tomorrow.
May ultimately need ALMA.
Continue to follow clinically.
����������������������������������������������������������
Chief Complaint
-: Leukocytosis and Bacteremia (MRSA)
Subjective / Review of Systems
Review of Systems: No Fever
Vital Signs / Physical Exam
Vital Signs
Vital Signs
Temp Pulse Resp BP Pulse Ox
97.8 F 67 20 143/55 95
09/29/24 08:17 09/29/24 04:00 09/29/24 04:00 09/29/24 04:00 09/28/24 20:00
Physical Exam
Constitutional: Chronically Ill and Non-toxic
Eyes: No Conjunctival Hemorrhage and Sclera Anicteric
Cardiovascular: Regular Rate and S1/S2; Negative S3/S4 or Murmur
Pulmonary: Clear; Negative Wheezes, Rales or Rhonchi
Gastrointestinal: Soft, Non Tender and Non Distended
Extremities: Edema; Negative Cyanosis, Erythema, Splinter Hemorrhage, Calf Swelling or Janeway Lesions
Skin: Negative Rash or Jaundice
Neurological: Awake
Psychological: Calm and Confused
Objective Data
Lab Data
Lab Results
09/29/24 04:30
09/29/24 04:30
ESR 48 mm/hour (0-20) H 09/28/24 04:25
Estimated Creat Clear 39 ml/min 09/29/24 04:30
Lactic Acid 1.0 mmol/L (0.7-2.0) 09/26/24 04:14
Total Bilirubin 0.5 mg/dl (0.2-1.3) 09/28/24 13:18
AST 50 U/L (17-59) 09/28/24 13:18
ALT 32 U/L (0-50) 09/28/24 13:18
Alkaline Phosphatase 76 U/L (38-126) 09/28/24 13:18
C-Reactive Protein 21.40 mg/L (0.0-10.00) H 09/28/24 04:25
Most recent labs reviewed.
Micro Results:
09/26/24 07:53 Blood Culture - Final
Blood/Venous Staph aureus MRSA
Gram Stain - Final
09/27/24 14:25 Blood Culture - Preliminary
Blood/Venous Positive culture in progress
Gram Stain - Preliminary
09/28/24 13:31 Blood Culture - Pending
Blood/Venous
09/27/24 04:24 Urine Culture - Final
Urine NO GROWTH
09/26/24 04:14 Blood Culture - Final
Blood/Venous Staph aureus MRSA
Gram Stain - Final
09/26/24 11:18 Influenza Types A & B ([facility]) - Final
Nasal Swab Negative for Influenza A & B, NAAT
Negative results must be combined with clinical observations
and patient history.
Nucleic Acid Amplification test (NAAT)performed on the
[employer] platform.
09/24/24 06:26 MRSA Screen - Final
Nose No Methicillin Resistant Staphylococcus aureus isolated.
Imaging:
09/26/2024 CXR chest (portable): Mild cardiomegaly noted. Median sternotomy wires and TAVR prostatic are unchanged. Moderate reticular interstitial thickening is seen bilaterally. Hazy opacity at the left lung base noted. Please see full
dictation for additional detail.
09/26/2024 CT abdomen/pelvis without contrast: No evidence of abdominal pelvic abscess or other acute pathology. Small bubbles of air within the right anterior lower abdominal wall likely resulting from subcutaneous injections. No body wall
abscess.
09/26/2024 CT chest: No evidence of PE or thoracic aortic dissection. Trace left pleural effusion. Changes of moderate interstitial fibrosis noted. Please see full dictation for additional detail.
[2024-09-29] MEDS: VANCOCIN 200 IV (10:05)
--- NOTE | 2024-09-29 10:31 | W.PN.CD ---
Today's Communication / Plan
-
family needs to think about if they want to proceed with ALMA, and will let us know
Impression / Plan
-
BACKGROUND: 83M with coronary artery calcification, pulmonary fibrosis, hypertension, dyslipidemia, severe aortic stenosis s/p TAVR, MVP with mitral regurgitation, and Alzheimer's dementia who presented after a fall. He has had a significant
decline over the past 3-4 weeks. Cardiology has been consulted for worsened MR on TTE.
Primary coordinator mining products: Dr. Dueñas.
IMPRESSION/PLAN:
Fever, hypotension,septic shock: MRSA bacteremia
-improved, weaned off of pressors
-with persistent bacteremia and TAVR, ID has recommended ALMA
-discussed with family (estrada Lo [phone]) given dementia
-family needs to think about if they want to proceed with ALMA, and will let us know
Elevated pro-BNP and hypoxia requiring O2 by NC:
-patient weight stable, echo stable as below
-appears euvolemic, not requiring diuretic
Frequent PVC's
-on tele, no sxs
Worsened Alzheimer's dementia with hallucination, per primary service
s/p TAVR (Grecia, 2019), stable on most recent echocardiogram this admission
MVP with moderate mitral regurgitation
Sinus bradycardia : follow telemetry, currently SR
Idiopathic pulmonary fibrosis with bronchiectasis,
Coronary artery calcification, on aspirin and pravastatin
h/o EP study, complicated by perforation, led to emergent open heart surgery (Grecia, 2001)
Echo 09/24/24 EF 60-65%MVP and modertae MR, TAVR . mean gradinet 8mmHg. No AR. MMild to mod TR . PASP 44mmHg
SUBJECTIVE:
patient is somewhat confused, but in no acute distress
DATA:
Transthoracic echocardiogram, 09/24/2024:
CONCLUSIONS
Normal left ventricular size and systolic function without regional wall motion
abnormalities. LVEF 60-65%.
Right ventricle is mildly dilated with normal systolic function.
Biatrial enlargement.
Bileaflet mitral valve prolapse with moderate mitral regurgitation.
Well-seated TAVR with normal function (peak/mean 19/8 mmHg).
Mild to moderate tricuspid regurgitation. Estimated PASP 44 mmHg.
Interatrial septum bowed to the right consistent with elevated left atrial
pressure.
Compared to prior echocardiogram on 06/07/2024, mitral regurgitation has
increased in severity. It was previously mild to moderate and is now solidly
moderate. Aortic valve gradients are stable. PASP has increased from 28 mmHg
to 44 mmHg. There is now evidence of elevated left atrial pressure.
Physical Exam
Vital Signs/Labs
Vital Signs
Temp Pulse Resp BP Pulse Ox
97.8 F 67 20 143/55 96
09/29/24 08:17 09/29/24 04:00 09/29/24 04:00 09/29/24 04:00 09/29/24 07:27
09/28/24 09/29/24 09/30/24
06:59 06:59 06:59
Actual Weight 61.6 kg
09/29/24 04:30
09/29/24 04:30
Magnesium 2.4 mg/dl (1.6-2.3) H 09/29/24 04:30
09/26/24
04:14
Dxl-B-Gyrhxhgfapd Pept > [id number]
Physical Exam
Constitutional: No acute distress
EENT: Moist mucous membranes
Cardiovascular: Pedal edema is absent, JVD pressure is normal, Rhythm/rate is irregular and Systolic murmur present
Respiratory: Respiratory effort normal and Lungs clear to auscul.
Neuro/Psych: Alert
Data Reviewed
-
Date of Service: September 29, 2024
EKG: Other (SR, frequent PVC's)
Labs: Labs Reviewed by me
--- NOTE | 2024-09-29 11:10 | W.PN.UPDATE ---
Update Note
Progress Note Update
Pt seen, reviewed with nursing staff. Pt noted to be a little more confused, responding to apparent hallucinations, but more compliant, not agitated. Family presence seems to be the most helpful intervention for facilitating compliance with
treatment. Pt alert, reclining in bed, in no distress, not able to give relevant answers. No agitation or overt hallucinations at present; moving sheets around in purposeless manner.
Imp: Dementia, with reported visual hallucinations/recent progressive decline per family
Encephalopathy- neurodegenerative/infectious
Rec: will continue to hold off antipsychotic medication for now, since pt is more cooperative with care when family present/ given family preference, prolonged QT
will continue to follow, consider antipsychotic med if mental status/ behavior worsens or compromises care
--- NOTE | 2024-09-29 11:13 | W.PN.HOSP.TC ---
Addendum entered and electronically signed by Kasi Rodriguez MD 09/29/24 14:20:
Discussed with Infectious Disease on-call via [facility] and stopped patient's Cefepime.
Original Note:
Today's Communication/Plan
-
Transfer to telemetry
Continue antibiotics
Consult hematology, nephrology
Assessment / Plan
Assessment / Plan
Physical Exam
General: Not in acute distress
HEENT: Normocephalic
Respiratory: Clear to Auscultation Bilaterally
Cardiac: S1/S2 and Regular Rhythm
GI: Soft and Non Tender. Positive bowel sounds.
Musculoskeletal: No Cyanosis and No Edema
Skin: Warm, Dry
Neuro: Alert. Awake. Responding to questions.
Psych: Calm

CT Chest/abd/pel W Iv Cont (as per radiologist's report)
'IMPRESSION:
1. Trace left pleural effusion.
2. Mild T10 and T12 compression fractures, both new from 04/05/2023 and likely acute/subacute. Recommend correlation for any point tenderness in this region.
3. No other significant acute abnormality identified in the chest, abdomen or pelvis, as described above. Stable changes of chronic interstitial lung disease.
4. Moderate diffuse colonic stool burden may reflect constipation.'
CTA of the chest with intravenous contrast (as per radiologist's report)
'IMPRESSION:
1. No evidence of pulmonary embolism or thoracic aortic dissection.
2. Trace left pleural effusion, new compared to 09/23/2024.
3. Changes of moderate interstitial fibrosis, unchanged compared to multiple prior studies, including 04/05/2023.
4. Mild dilation of the ascending thoracic aorta, which measures 3.7 cm in greatest orthogonal dimension. No significant change compared to prior studies, including 04/05/2023.
5. Stable prominence of the main pulmonary trunk, suggestive of pulmonary arterial hypertension in the correct clinical setting.'
Noncontrast CT examination of the abdomen and pelvis (as per radiologist's report)
'IMPRESSION:
1. No evidence of abdominal pelvic abscess or other acute pathology.
2. Small bubbles of air within the right anterior lower abdominal wall, likely resulting from subcutaneous injections. No body wall abscess.
3. Small left pleural effusion, also seen on CTA of the chest. Bibasilar interstitial fibrosis.'
Echocardiogram (as per map colorer's report)
'CONCLUSIONS
Normal left ventricular size and systolic function without regional wall motion
abnormalities. LVEF 60-65%.
Right ventricle is mildly dilated with normal systolic function.
Biatrial enlargement.
Bileaflet mitral valve prolapse with moderate mitral regurgitation.
Well-seated TAVR with normal function (peak/mean 19/8 mmHg).
Mild to moderate tricuspid regurgitation. Estimated PASP 44 mmHg.
Interatrial septum bowed to the right consistent with elevated left atrial
pressure.
Compared to prior echocardiogram on 06/07/2024, mitral regurgitation has
increased in severity. It was previously mild to moderate and is now solidly
moderate. Aortic valve gradients are stable. PASP has increased from 28 mmHg
to 44 mmHg. There is now evidence of elevated left atrial pressure.'
Chest x-ray 09/26/2024-left lower lobe pneumonia, nondisplaced fracture through the distal right clavicle

Assessment/Plan
83-year-old male past medical history of aortic valve replacement, cardiac catheterization complicated by punctured pericardium, Alzheimer's dementia, hypertension, pulmonary fibrosis, BPH, hyperlipidemia, presented after being found in the bathtub.
He was reported to have fallen twice in the past week. He has been having progressive memory impairment over the past several months.
He was also noted to have blood in his underwear on the toilet today. On rectal examination by ER he had pinkish stool was Hemoccult positive. He has small sacral decubitus ulcer.
Vital signs unremarkable. Labs show creatinine kinase of 858. Labs otherwise unremarkable. Urinalysis unremarkable. IV fluids. Likely worsening falls and memory impairment from worsening dementia.
Check orthostatic vital signs. Wound care consulted. Monitor for further rectal bleeding and anemia. If further bleeding and anemia will require GI. Wound care consulted. PT/OT.
Hypotension, Lethargy, Fevers on 09/26/24 Morning - RESOLVED
Acute Hypoxic Respiratory Insufficiency - RESOLVED
MRSA Bacteremia with history of TAVR
-Was on pressors and oxygen in ICU, now resolved, and transferred back to telemetry
-Started broad spectrum antibiotics with Vancomycin, Cefepime and Flagyl --> now continue Vancomycin, (Cefepime will possibly be discontinued) per ID
-Possible source of infection is patient's sacral wound
-Blood Cultures growing MRSA
-Follow repeat blood cultures
-May need ALMA - as per cardiology, family needs to think about if they want to proceed with ALMA, and will let us know
-ESR and CRP are both elevated
-Screw Machine Operator consulted, appreciate their evaluation and recommendations
-Infectious Disease consulted, appreciate their evaluation and recommendations
-Appreciate cardiology input
-Levophed was stopped on 09/27/24 morning, continue to monitor
Hypomagnesemia - RESOLVED
-Magnesium IV replacement ordered
-Recheck BMP and Magnesium
Paranoid Behavior/Refusal of Care on 09/28/24 AM
-Psychiatry consulted, appreciate their evaluation and recommendations
-Improved with patient's family's presence
Frequent Falls with Mild Non-Traumatic Rhabdomyolysis
Concern for Orthostatic Hypotension -- RESOLVED
-Patient was given intravenous fluids
-Recheck CPK in AM --> CPK overall improved
-PT/OT
-Echo noted, as above
-Tele monitor
'Blood in Underwear'
-ED staff noted small sacral wound which appeared to have bleed recently. This is the likely source
-ED staff also noted pink stool which was heme-positive
-Hold on GI consult for now
-Monitor Hgb -- has been stable
-Heme-Test Stool still pending
Mild RV Dilation on September 2024 Echocardiogram
-Possibly for pulmonary fibrosis
-Consult pulmonary, appreciate evaluation and recommendations
Biatrial Enlargement
MVP with Moderate Mitral Regurgitation
Elevated left atrial pressure
-Worsened on September 2024 compared to previous
-Consult cardiology, appreciate their evaluation and recommendations
-Echo will need to be rechecked echo again at his next visit with Dr. Dueñas in October 2024 -- but ALMA is being considered by family, as above
History of TAVR
History of cardiac catheterization complicated by punctured pericardium
Coronary artery calcification, on aspirin and pravastatin
LUE Weakness and Pain
-Suspected secondary to falls/trauma
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
-Neurology consulted for stroke evaluation, appreciate their evaluation and recommendations, they mentioned okay to hold off on Brain MRI for now given patient's critical condition
-Continue Aspirin 81 mg daily
-Consider orthopedics consultation
Left Upper Extremity Cephalic Vein Thrombosis on Peripheral Vascular Ultrasound from 09/26/24
-This is a superficial vein thrombosis, no need for anticoagulation
-However, repeat ultrasound shows 'near occlusive thrombus of the cephalic vein as described, progressed from prior'
-Continue supportive care
Multilevel neural foraminal osseous encroachment, greatest on the left from C3-C7, as per radiologist's report from CT of the Cervical Spine
-Follow-up with cyber systems operations specialist/neurosurgery outpatient
Elevated pro-BNP and hypoxia requiring O2 by NC
-No diuretic at this time
Urinary Retention
-Was on Flomax outpatient, but PCP had stopped it (as per nurse on 09/27/24)
Constipation on CT Imaging from September 2024 Hospitalization
-Bowel regimen: Miralax daily
-Dulcolax suppository given on 09/24/24
-Large bowel movement reported by nurse on 09/25/24
Macrocytic Anemia
Thrombocytopenia
-Monitor CBC
-Iron studies and Vitamin B12 unremarkable
-Consult hematology given degree of platelet drop and new cephalic vein thrombus
Progressively Worsening BUN
-Consulted nephrology, appreciate their evaluation and recommendations
Hematuria on Urinalysis
-Discussed via [facility] on 09/25/24, with urologist Dr. Carr who mentioned that this should be followed up outpatient, no need for inpatient urology evaluation
Compression Fractures on CT Imaging from September 2024 Hospitalization
-PT/OT
Alzheimer's Dementia
-Patient likely require more help at home or higher level of care
-Consult Case Management
-Monitor for mood/behavior changes during hospitalization
-Outpatient neuropsychological testing (if not already completed) to guide in therapeutic intervention.
Idiopathetic Pulmonary Fibrosis
-Stable
-Consulted pulmonary given RV dilation
Coronary Artery Calcification
-Continue aspirin
Hypertension
Hyperlipidemia
-Continue pravastatin
BPH
-Flomax recently stopped by PCP
-Monitor for retention
History of Asymptomatic Hyponatremia
History of Total knee arthroplasty
History of likely osteomyelitis of right fifth toe/surrounding cellulitis
History of MRSA
Underweight
DVT Prophylaxis: SCDs and Lovenox.
Diet/Speech: Regular Solids with Thin Liquids, as per speech
Code Status: DNR
On 09/26/24, I called patient's family (Wally Dowell) and explained patient's current status and need for transfer to ICU. All questions and concerns were answered to satisfaction.
Patient with MRSA bacteremia is a high-risk encounter.
Anticipated Discharge: > 48 hours
Subjective/Interval History
-
Date of Service: September 29, 2024
Patient was seen and examined. He remained confused but alert and denied any symptoms or complaints.
Objective Data
-
Labs:
Laboratory Results
09/29/24
04:30
WBC 8.4
Hgb 10.9 L
Hct 31.7 L
Plt Count 102 L
Sodium 133 L
Potassium 4.3
Chloride 101
Carbon Dioxide 24
BUN 105 H*
Creatinine 1.3
Glucose 111 H
Calcium 8.2 L
Vital Signs:
Vital Signs
Temp Pulse Resp BP Pulse Ox
97.8 F 67 20 143/55 96
09/29/24 08:17 09/29/24 04:00 09/29/24 04:00 09/29/24 04:00 09/29/24 07:27
I&O
09/28/24 09/29/24 09/30/24
06:59 06:59 06:59
Intake Total 495.0 / 495.0 560 / 560
Output Total 175 / 175 200 / 200
Balance 320.0 / 320.0 360 / 360
[2024-09-29] MEDS: MAXIPIME 2000 MG IV (13:44)
[2024-09-29] MEDS: STERILE WATER FOR INJECTION 10 ML IV (13:44)
--- NOTE | 2024-09-29 14:01 | PTCARENOTE ---
rec'd pt from ICU after MRI completed. Pt is awake and pleasantly confused. Denies pain. Attempt made to orient pt to the room. Per ICU pt's family will be coming in to sit with him.
--- NOTE | 2024-09-29 14:22 | PTCARENOTE ---
Pt received in bed @ 0700. Oriented to self. Forgetful with garbled speech. Hard of hearing. Cooperative with tests and orders. Bedside ultrasound completed on left arm. Sinus rhythm with 1st degree AV block with PVC's and PAC's with periods of vent
bigeminy. Trace edema to left upper arm. +1 pitting LE edema. Palpable peripheral pulses. 95% on room air. Diminished breath sounds. Occasional dry cough. Poor appetite. Pt refused breakfast. No bowel movement observed. Condom catheter #21 draining
lauren urine. (R) DL PICC with (+) blood return, flushed. MRI of brain completed. Pt downgraded to telemetry. Report given to receiving nurse and brought to room.
--- NOTE | 2024-09-29 14:31 | W.PN.UPDATE ---
Addendum entered and electronically signed by Kasi Rodriguez MD 09/29/24 19:13:
I communicated with on-call radiologist Dr. Miguel Persaud earlier today, and he confirmed that the cephalic wilder thrombus is larger on the peripheral vascular ultrasound from today than it was on the peripheral vascular ultrasound from 09/26/24.
Addendum entered and electronically signed by Kasi Rodriguez MD 09/29/24 16:39:
I called just now patient's nephew Wally Dowell and explained patient's medical condition in detail, and the reasons for starting Eliquis (for the progressed Cephalic Vein Thrombus on repeat venous ultrasound and for possible HIT from Lovenox). I
explained to him the bleeding risk (including intracerebral hemorrhage) with the Eliquis (especially given possible infective endocarditis), and the reason we stopped Lovenox (concern for HIT with dropping platelets and cephalic vein thrombus in the
setting of Lovenox). Hematology will likely see patient tomorrow and see whether Eliquis needs to be continued or whether it can be stopped and patient can be switched back to Lovenox. He was in agreement with the plan. All questions and concerns
were answered to satisfaction.
Original Note:
Update Note
Progress Note Update
I just consulted and spoke to on-call rn concurrent review about patient's thrombocytopenia and worsening left cephalic vein thrombus on repeat ultrasound imaging. We both agreed that Eliquis can give some protection in case patient has HIT, as well as
improving the cephalic vein clot.
Based on our discussion, on-call rn concurrent review and I both agreed to:
1) No Argatroban for now;
2) Start Eliquis 5 mg BID starting tonight;
3) Order Heparin Associated Platelet Ab
I also spoke with on-call division roadmaster who said it is okay to stop Aspirin 81 mg daily -- this is to reduce bleeding risk.
--- NOTE | 2024-09-29 14:59 | W.CON.NEPH ---
Consultation
-
Date/Time Consultation Requested: 09/29/24 1400
Date/Time Consultation Performed: 09/29/24 1600
Requesting Provider: leo Banda
Performing Provider: Elsi Thorne
Reason for Consultation: NANCY, Azotemia
Medical History
-
Chief Complaint: Fall
History of Present Illness:
83 y/o male past medial history of pulmonary fibrosis, coronary artery calcification, hypertension, hyperlipidemia and Alzheimer's Dementia who presents following a fall on 09/23. He later noted to have fever and blood cultures showed MRSA source
felt to be sacral wound. He was in ICU for septic shock and briefly on pressors. He had neg CT chest/abd/pelvis with contrast on 09/23, no PE on CTA on 09/26. Echo shows pulm htn, mod MR, well seated AVR. There is concern of IE with persistent
bacteremia and h/o TAVR and planning ALMA. On admit his bun 47, cr was 0.6 and now BUN upto 105 and cr at 1.3. Nephrology consulted with worsening BUN. 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 He also has worsening confusion, paranoid, refusal to the care and
MRI brain done today showed no stroke. He is unable to provide any history due to confusion. No fever, no n/v. His po intake and fluid intake is less. he is off IVF since 09/25. He continued on vancomycin and d/c cefepime. Worsening thrombocytopenia
and cephalic vein clot plan to start on Eliquis.
Past Medical History
IPF/Restrictive lung disease
MVP
HTN
Dyslipidemia
Bradycardia/Frequent PVCs
Open heart surgery with pericardial injury 2019
Severe aortic stenosis s/p TAVR
IBS
Bilateral knee sx
3 hernia repairs
History of MRSA
Advancing dementia
BPH
Social History
Tobacco: Non-Smoker
Alcohol: None
Personal: Single
Living: Alone
Employment: Retired
Family History
unable to obtain with dementia
Family History: Not Pertinent
Allergies / Home Medications
Allergy/AdvReac Type Severity Reaction Status Date / Time
Penicillins Allergy Unknown Verified 09/23/24 12:24
�Medication �Instructions �Recorded �Confirmed �Type
aspirin 81 mg tablet,delayed 81 mg PO DAILY Blood Clot 07/24/23 09/23/24 History
release Prevention/Tx
cholecalciferol (vitamin D3) 25 25 mcg PO DAILY Supplement 07/24/23 09/23/24 History
mcg (1,000 unit) tablet (Vitamin
D3)
pravastatin 20 mg tablet 20 mg PO DAILY High Cholesterol 07/24/23 09/23/24 History
Prevagen 1 cap PO DAILY Supplement 09/23/24 09/23/24 History
therapeutic multivitamin 1 tab PO DAILY Supplement 09/23/24 09/23/24 History
Review of Systems
-
unable to obtain as pt is confused and demented
Physical Exam
Vital Signs
Vital Signs
Temp Pulse Resp BP Pulse Ox
97.3 F 68 18 149/67 96
09/29/24 13:59 09/29/24 13:59 09/29/24 13:59 09/29/24 13:59 09/29/24 14:07
Lab Results
WBC 8.4 10^3/uL (4.8-10.8) 09/29/24 04:30
RBC 3.35 10^6/uL (4.70-6.10) L 09/29/24 04:30
Hgb 10.9 g/dL (13.0-18.0) L 09/29/24 04:30
Hct 31.7 % (39.0-52.0) L 09/29/24 04:30
Plt Count 102 10^3/uL (130-400) L 09/29/24 04:30
Sodium 133 mmol/L (135-145) L 09/29/24 04:30
Potassium 4.3 mmol/L (3.5-5.1) 09/29/24 04:30
Chloride 101 mmol/L (98-107) 09/29/24 04:30
Carbon Dioxide 24 mmol/L (22-30) 09/29/24 04:30
BUN 105 mg/dl (9-20) H* 09/29/24 04:30
Creatinine 1.3 mg/dL (0.7-1.3) 09/29/24 04:30
eGFR 55.19 09/29/24 04:30
Glucose 111 mg/dl (70-99) H 09/29/24 04:30
Calcium 8.2 mg/dl (8.4-10.2) L 09/29/24 04:30
Phosphorus 3.4 mg/dl (2.5-4.5) 09/24/24 07:57
Mhb-N-Ewnyogwpptl Pept > 36800 pg/ml 09/26/24 04:14
Albumin 2.3 g/dl (3.5-5.0) L 09/28/24 13:18
09/24/24: echo:
CONCLUSIONS
Normal left ventricular size and systolic function without regional wall motion
abnormalities. LVEF 60-65%.
Right ventricle is mildly dilated with normal systolic function.
Biatrial enlargement.
Bileaflet mitral valve prolapse with moderate mitral regurgitation.
Well-seated TAVR with normal function (peak/mean 19/8 mmHg).
Mild to moderate tricuspid regurgitation. Estimated PASP 44 mmHg.
Interatrial septum bowed to the right consistent with elevated left atrial
pressure.
Compared to prior echocardiogram on 06/07/2024, mitral regurgitation has
increased in severity. It was previously mild to moderate and is now solidly
moderate. Aortic valve gradients are stable. PASP has increased from 28 mmHg
to 44 mmHg. There is now evidence of elevated left atrial pressure.
Physical Exam
General: Awake, Alert, Oriented, AOx3, No Distress and Nontoxic
HEENT: EOMI, Anicteric, Facial Symmetry, Neck Supple and No JVD
Respiratory: Clear, Normal Excursion and Nonlabored Respirations
Cardiac: S1/S2, Regular Rate/Rhythm and Murmur
Abdomen: Soft, Nontender and Nondistended
Musculoskeletal: No Cyanosis and No Edema
Skin: No Rash
Neuro: Nonfocal/Grossly Intact
Psych: Mood/afflect pleasant
Data Reviewed
-
Radiology: Report Reviewed by me and Discussed with Nurse
Labs: Labs Reviewed by me and Discussed with Nurse
Assessment/Plan
-
IMP:
Azotemia
NANCY
mild yponatremia
MRSA Bacteremia with history of TAVR
Septic shock-resolved
Paranoid Behavior/Refusal of Care
Frequent Falls P[employer]LL[employer] F[employer]ER
very mild rhabdomyolysis-resolved
Anemia,
Thrombocytopenia
pulmonary fibrosis
MVP with Moderate Mitral Regurgitation
[facility]
History of cardiac catheterization complicated by punctured pericardium
LUE Weakness and Pain
Left Upper Extremity Cephalic Vein Thrombosis on Peripheral Vascular Ultrasound from 09/26/24
Multilevel neural foraminal osseous encroachment, greatest on the left from C3-C7
Urinary Retention
Constipation
Compression Fractures on CT Imaging
Alzheimer's Dementia
Coronary Artery Calcification
Hypertension
Hyperlipidemia
History of Total knee arthroplasty
History of likely osteomyelitis of right fifth toe/surrounding cellulitis
History of MRSA
Plan:
A/w FTT, fall, found MRSA bacteremia
Significant azotemia-with underlying pulm HTN and possible prerenal with poor po intake
Bladder scan 246cc, check FEna
mild NANCY-likely MARIA L, cr stable 1.3 and UOP not measured well
UA with microhematuria, pyuria and bacteria+, no growth on cx
hb stable and no steroid use , CT on admit no hydro
BNP was high on 09/26
vol status seem stable on RA and no JVD, likely trial gentle IVF
encourage po intake
BP stable now, check ortho vitals if possible
Thrombocytopenia -heme consulted, Brayden started and HIT sent
abx per ID and ALMA when family agrees
monitor mild hyponatremia-check U osmo
labs in am
d/w nursing
[2024-09-29] MEDS: NSS 500 IV (17:16)
[2024-09-29 19:36] LABS: Osmolality Urine 727 mOsm/kg (300-900)
[2024-09-29 19:51] LABS: Urine Sodium 8 mmol/L (30-90)
[2024-09-29] MEDS: ELIQUIS 5 MG PO (20:44)
[2024-09-30 03:45] VITALS: BP 141/73
--- NOTE | 2024-09-30 04:30 | W.PN.UPDATE ---
Update Note
Progress Note Update
Reported by the nursing staff that patient is de sating in RA SPO2 in mid 80s. Patient was placed on 2-3 L of O2 and SPO2 is 97%. Per nursing, he has cough and is able to clear some sputum. Patient afebrile.
On exam, patient looks comfortable in bed, no signs pain, breathing with no difficulty. No crackles or wheezing noted during chest exam. Will repeat covid test and order chest x-ray.
[2024-09-30 05:12] VITALS: BMI 19.4
[2024-09-30 05:18] LABS: % Basophils 0.2 % (0-2); % Eosinophils 2.8 % (0-6); % Immature Granulocytes 1.2 % (0-0.5); % Lymphocytes 7.1 % (20.5-51.1); % Neutrophils 80.7 % (42.2-75.2); Absolute Eosinophils 0.3 10^3/uL (0-0.7); Absolute Immature Granulocytes 0.1 10^3/uL (0-0.05); Absolute Lymphocytes 0.7 10^3/uL (1.2-3.4); Absolute Monocytes 0.8 10^3/uL (0.1-0.6); Absolute Neutrophils 8.5 10^3/uL (1.4-6.5); Hemoglobin 11.4 g/dL (13.0-18.0); Mean Corp Hgb Conc. 34.5 g/dL (33.0-37.0); Mean Corpuscular Hgb 33.6 pg (27.0-31.0); Mean Corpuscular Volume 97.3 fL (80.0-94.0); Nucleated Red Blood Cells % 0 % (-); Platelet Count 108 10^3/uL (130-400); Red Blood Cell Count 3.39 10^6/uL (4.70-6.10); Red Cell Dist. Width 12.8 % (11.5-14.5); White Blood Cell Count 10.5 10^3/uL (4.8-10.8)
[2024-09-30 05:33] LABS: COVID-19 Antigen Negative (Negative)
[2024-09-30 05:42] LABS: Blood Urea Nitrogen 101 mg/dl (9-20); Calcium 8.4 mg/dl (8.4-10.2); Carbon Dioxide 25 mmol/L (22-30); Chloride 104 mmol/L (98-107); Estimated Creatinine Clearance 50 ml/min; Glucose 110 mg/dl (70-99); Sodium 137 mmol/L (135-145); eGFR > 60.00
[2024-09-30 05:48] LABS: Vancomycin Random 17.5 ug/ml
[2024-09-30 07:05] VITALS: BP 145/94
--- NOTE | 2024-09-30 08:21 | PHA.VAN.FU ---
Vancomycin Assessment / Plan
- Assessment
Renal Function: SCR Decreasing (BUN remains increased)
WBC's are: WNL
In the past 24 hrs, patient has been: Afebrile
- Assessment - Therapeutic Drug Monitoring
Random Level: 17.5 - drawn ~18H after previous dose of 1000mg
- Dosing Plan
Dosing by Level: Re-dose today (Vanc 500mg)
Will re-dose today with reduced dosing to ensure patient maintains levels; however, patient may require prolonged re-dosing interval
- Monitoring Plan
Random Level: 10/01 06
- Follow Up
Pharmacy will continue to follow.
Vancomycin Follow UP
- -
Patient Age: 83
Patient Sex: Male
Vancomycin Day #: 5
Indication: Bacteremia
Requesting Provider: Dr. Rodriguez / Joo
Pertinent Antimicrobial Allergies:
penicillins - unknown
Height / Weight:
Height 5 ft 10 in
Actual Weight 61.462 kg
IBW in k
Pertinent Past Medical History: BMI ~19
- Vital Signs / Lab Results
Temp Pulse Resp BP Pulse Ox
97.6 F 75 18 141/73 90
09/30/24 03:45 09/30/24 03:45 09/30/24 03:45 09/30/24 03:45 09/30/24 03:45
Lab Results - Hematology
09/28/24 09/29/24 09/30/24
13:18 04:30 04:13
WBC 7.2 8.4 10.5
Lab Results - Chemistry
09/27/24 09/28/24 09/29/24
20:04 13:18 04:30
BUN 78 H 93 H 105 H*
Creatinine 1.3 1.3 1.3
Estimated Creat Clear 36 36 39
Albumin 2.3 L
09/30/24
04:13
BUN 101 H*
Creatinine 1.0
Estimated Creat Clear 50
Albumin
Microbiology Results
09/28/24 13:31 Blood Culture - Preliminary
Blood/Venous No Growth in 24 hours- Final report to follow
09/26/24 07:53 Blood Culture - Final
Blood/Venous Staph aureus MRSA
Gram Stain - Final
09/27/24 14:25 Blood Culture - Preliminary
Blood/Venous Positive culture in progress
Gram Stain - Preliminary
09/27/24 04:24 Urine Culture - Final
Urine NO GROWTH
09/26/24 04:14 Blood Culture - Final
Blood/Venous Staph aureus MRSA
Gram Stain - Final
Therapeutic Drug Monitoring
Random Vancomycin 17.5 ug/ml 09/30/24 04:13
[2024-09-30] MEDS: PRAVACHOL 20 MG PO (09:41)
[2024-09-30] MEDS: MIRALAX 17 GRAMS PO (09:41)
[2024-09-30] MEDS: ELIQUIS 5 MG PO (09:41)
--- NOTE | 2024-09-30 09:41 | CON.ONC ---
Documented by User: [email or web address] Freeman 09/30/24 12:28
Impression
Impression
NANCY
MRSA Bacteremia with history of TAVR
Septic shock
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
Anemia, mild with Hgb 11.4g/dL today. Ferritin >200, elevated ESR suggests AOCD/inflammation, however will check SPEP, FLC, and hemoylsis panel for completeness
Thrombocytopenia, mild with platelet stable 106,000 today. Bactrim BOIL[employer] RIVETER. HIT score low probability of HIT (<5%). No B12 deficency
pulmonary fibrosis
MVP with Moderate Mitral Regurgitation
History of cardiac catheterization complicated by punctured pericardium
Left Upper Extremity Cephalic Vein Thrombosis on Peripheral Vascular Ultrasound from 09/26/24
Alzheimer's Dementia
History of likely osteomyelitis of right fifth toe/surrounding cellulitis
Plan
Plan
I suspect there is a component of consumption from infection/sepsis and medication induced (Bactrim [employer]IL[employer] RIVETER) contributing to thrombocytopenia a
superficial occlusive cephalic thrombus LUE -elevation, compression, continue DVT ppx since no evidence of bleeding and platelet stable >100,000
check folate, DIC panel, SPEP, FLC, retic, LDH, haptoglobin
f/u HIT panel, though low probability
Continue DVT ppx, could consider apixaban 2.5mg BID vs enoxaparin 40mg daily. I would not continue on discharge since frequent falls
discussed with hospitalist and will sign off.
Patient History
History of Present Illness
83yo M admitted 09/23/2024 due to declining health and physical activity for which evaluate was notable for MRSA bacteremia. He was on Bactrim prior to admission. He has received vancocin, flagyl, and cefepime during this hospitalization. Hospital
course c/b a left occlusive superficial cephalic vein thrombus for which hematology was consulted for further recommendations. His b/l LE doppler showed no evidence fo lower extremity DVT and CTA no evidence for pulmonary emboli. He had a right
PICC placed. His most recent cxr shows LLL PNA and remonstration of nondisplaced fracture of the distal right clavicle. Patient had a normal platelet count 159k on admission (09/23) and had trended down to 102k 09/29. He was started dvt ppx with
enoxaparin 09/24 and transitioned to therapeutic enoxaparin 09/26 when US noted cephalic vein thrombosis. Due to platelet trending down, he was switched to apixaban 5mg BID for treatment of DVT and HIT panel was sent.
Admission imaging reviewed and notable for DJD C spine, mild acute/subacute T10 & T12 compression fracture, chronic ILD, interstitial fibrosis, constipation, trace left pleural effusion, DJD left shoulder, osteoarthritis left wrist.,
Patient is unable to provide history due to underlying dementia. History obtained from chart.
Past-Medical/Surgical History
PMH
IPF/Restrictive lung disease
MVP
HTN
Dyslipidemia
Bradycardia/Frequent PVCs
Open heart surgery with pericardial injury 2020
Severe aortic stenosis s/p TAVR
IBS
Bilateral knee sx
3 hernia repairs
History of MRSA
Advancing dementia
BPH
Social History
Tobacco: Non-Smoker
Alcohol: None
Personal: Single
Employment: Retired
Family History
unable to obtain with dementia
Patient Medication
�Medication �Instructions �Recorded �Confirmed �Last Taken �Type
aspirin 81 mg tablet,delayed 81 mg PO DAILY Blood Clot 07/24/23 09/23/24 07/23/23 History
release Prevention/Tx
cholecalciferol (vitamin D3) 25 25 mcg PO DAILY Supplement 07/24/23 09/23/24 07/23/23 History
mcg (1,000 unit) tablet (Vitamin
D3)
pravastatin 20 mg tablet 20 mg PO DAILY High Cholesterol 07/24/23 09/23/24 07/23/23 History
Prevagen 1 cap PO DAILY Supplement 09/23/24 09/23/24 Unknown History
therapeutic multivitamin 1 tab PO DAILY Supplement 09/23/24 09/23/24 Unknown History
Active Medications
Generic Name Dose Route Start Last Admin
Trade Name Freq PRN Reason Stop Dose Admin
Acetaminophen 650 mg 09/23/24 19:26 09/28/24 21:53
Acetaminophen 325 Mg Tablet PO 10/21/24 19:25 650 mg
Q4HPRN PRN Administration
mild pain/ fever>100.5F
Apixaban 5 mg 09/29/24 20:00 09/29/24 20:44
Apixaban (Eliquis) 5 Mg Tablet PO 10/27/24 19:59 5 mg
BID CHRISTOPHER Administration
Aspirin 81 mg 09/24/24 08:00 09/29/24 07:11
Aspirin 81 Mg (Enteric Coated) Tablet PO 10/22/24 07:59 81 mg
DAILY CHRISTOPHER Administration
Vancomycin HCl 1 each/ Device 0 mls @ 0 mls/hr 09/27/24 10:00
IV
PER PROTOCOL CHRISTOPHER
Protocol
As Directed
Polyethylene Glycol 17 grams 09/24/24 17:00 09/29/24 07:11
Polyethylene Glycol Powder 17 Grams Packet PO 10/22/24 16:59 17 grams
DAILY CHRISTOPHER Administration
Pravastatin Sodium 20 mg 09/24/24 08:00 09/29/24 07:11
Pravastatin 20 Mg Tablet PO 10/22/24 07:59 20 mg
DAILY CHRISTOPHER Administration
Sodium Chloride 0 flush 09/24/24 17:00 09/26/24 09:48
Sodium Chloride 0.9% (Flush) Syringe IV 10/22/24 16:59 1 flush
PER PROTOCOL CHRISTOPHER Administration
Review of Systems
-
Unable to obtain full review of systems at this time due to: Dementia
Physical Exam
-
General: No Apparent Distress
HEENT: Moist Mucous Membranes; Negative Jaundice
Cardiology: S1 and S2
Pulmonary: Clear
GI: Soft
Labs
Lab Results
WBC 10.5 10^3/uL (4.8-10.8) 09/30/24 04:13
RBC 3.39 10^6/uL (4.70-6.10) L 09/30/24 04:13
Hgb 11.4 g/dL (13.0-18.0) L 09/30/24 04:13
Hct 33.0 % (39.0-52.0) L 09/30/24 04:13
MCV 97.3 fL (80.0-94.0) H 09/30/24 04:13
MCH 33.6 pg (27.0-31.0) H 09/30/24 04:13
MCHC 34.5 g/dL (33.0-37.0) 09/30/24 04:13
RDW 12.8 % (11.5-14.5) 09/30/24 04:13
Plt Count 108 10^3/uL (130-400) L 09/30/24 04:13
MPV 10.0 fL (7.4-10.4) 09/30/24 04:13
Abs Immat Gran (auto) 0.1 10^3/uL (0-0.05) H 09/30/24 04:13
Absolute Neuts (auto) 8.5 10^3/uL (1.4-6.5) H 09/30/24 04:13
Absolute Lymphs (auto) 0.7 10^3/uL (1.2-3.4) L 09/30/24 04:13
Absolute Monos (auto) 0.8 10^3/uL (0.1-0.6) H 09/30/24 04:13
Absolute Eos (auto) 0.3 10^3/uL (0-0.7) 09/30/24 04:13
Absolute Basos (auto) 0.0 10^3/uL (0-0.2) 09/30/24 04:13
Immature Gran % 1.2 % (0-0.5) H 09/30/24 04:13
Neutrophils % 80.7 % (42.2-75.2) H 09/30/24 04:13
Lymphocytes % 7.1 % (20.5-51.1) L 09/30/24 04:13
Monocytes % 8.0 % (1.7-9.3) 09/30/24 04:13
Eosinophils % 2.8 % (0-6) 09/30/24 04:13
Basophils % 0.2 % (0-2) 09/30/24 04:13
Creatinine 1.0 mg/dL (0.7-1.3) 09/30/24 04:13
Vital Signs
Vital Signs
Temp Pulse Resp BP Pulse Ox
98.5 F 65 16 145/94 97
09/30/24 07:05 09/30/24 07:05 09/30/24 07:05 09/30/24 07:05 09/30/24 07:05

Documented by User: Nelda Cabrera MD 09/30/24 20:36
Plan
Plan
I suspect there is a component of consumption from infection/sepsis and medication induced (Bactrim [employer]IV[employer]ER) contributing to thrombocytopenia a
superficial occlusive cephalic thrombus LUE -elevation, compression, continue DVT ppx since no evidence of bleeding and platelet stable >100,000
check folate, DIC panel, SPEP, FLC, retic, LDH, haptoglobin
f/u HIT panel, though low probability
Continue DVT ppx, could consider apixaban 2.5mg BID vs enoxaparin 40mg daily. I would not continue on discharge since frequent falls
discussed with hospitalist and will sign off.
ATTENDING ADDENDUM
Pt seen and examined, chart reviewed.
He is confused and not able to provide history.
Impression:
- mild thrombocytopenia related to infection +/- abd
- superficial venous thrombosis related to IV
Does not require anticoagulation but could use short-term anticoagulation if discomfort.
[2024-09-30 11:05] VITALS: BP 128/58
--- NOTE | 2024-09-30 11:14 | W.PN.CD ---
Today's Communication / Plan
-
Respiratory status stable. Currently stable on telemetry. Patient remains afebrile since 09/26/2024
Continue with antibiotics as directed by ID.
Impression / Plan
-
BACKGROUND: 83M with coronary artery calcification, pulmonary fibrosis, hypertension, dyslipidemia, severe aortic stenosis s/p TAVR, MVP with mitral regurgitation, and Alzheimer's dementia who presented after a fall. He has had a significant
decline over the past 3-4 weeks. Cardiology has been consulted for worsened MR on TTE.
Primary data mining analyst: Dr. Dueñas.
IMPRESSION/PLAN:
Fever, hypotension,septic shock: MRSA bacteremia
-Afebrile since 09/26/2024
-with persistent bacteremia and TAVR, ID has recommended ALMA. Although ALMA can be helpful at evaluating TAVR valve and assessing for endocarditis it may not ion exchange operator in this patient.. With continued treatment with antibiotics as directed
by ID and would plan to treat to cover endocarditis.
-Previously Dr. Clifford discussed with family (estrada Lo [phone]) given dementia
Previously elevated pro-BNP and hypoxia requiring O2 by NC:
-Currently respiratory status appears stable.
Frequent PVC's
-on tele, no sxs. Stable
Worsened Alzheimer's dementia with hallucination, per primary service
s/p TAVR (Grecia, 2019), stable on most recent echocardiogram issues related to bacteremia possibility of endocarditis as noted above.
MVP with moderate mitral regurgitation
Sinus bradycardia : follow telemetry, currently SR
Idiopathic pulmonary fibrosis with bronchiectasis,
Coronary artery calcification, on aspirin and pravastatin
h/o EP study, complicated by perforation, led to emergent open heart surgery (Grecia, 2001)
Echo 09/24/24 EF 60-65%MVP and modertae MR, TAVR . mean gradient 8mmHg. No AR. MMild to mod TR . PASP 44mmHg
SUBJECTIVE:
patient is somewhat confused, but in no acute distress
DATA:
Transthoracic echocardiogram, 09/24/2024:
CONCLUSIONS
Normal left ventricular size and systolic function without regional wall motion
abnormalities. LVEF 60-65%.
Right ventricle is mildly dilated with normal systolic function.
Biatrial enlargement.
Bileaflet mitral valve prolapse with moderate mitral regurgitation.
Well-seated TAVR with normal function (peak/mean 19/8 mmHg).
Mild to moderate tricuspid regurgitation. Estimated PASP 44 mmHg.
Interatrial septum bowed to the right consistent with elevated left atrial
pressure.
Compared to prior echocardiogram on 06/07/2024, mitral regurgitation has
increased in severity. It was previously mild to moderate and is now solidly
moderate. Aortic valve gradients are stable. PASP has increased from 28 mmHg
to 44 mmHg. There is now evidence of elevated left atrial pressure.
Physical Exam
Vital Signs/Labs
Vital Signs
Temp Pulse Resp BP Pulse Ox
98.5 F 65 16 145/94 97
09/30/24 07:05 09/30/24 07:05 09/30/24 07:05 09/30/24 07:05 09/30/24 07:05
09/29/24 09/30/24 10/01/24
06:59 06:59 06:59
Actual Weight 61.6 kg 61.462 kg
09/30/24 04:13
09/30/24 04:13
Magnesium 2.4 mg/dl (1.6-2.3) H 09/29/24 04:30
09/26/24
04:14
Ooc-X-Pfgclfiyjfh Pept > [id number]
Physical Exam
Constitutional: No acute distress
Cardiovascular: Rhythm & rate is regular and Other (Soft systolic murmur)
Respiratory: Wheeze Absent, Rhonchi Absent and Other (Decreased at bases consistent with level of effort)
GI: Soft, Non tender and Normal bowel sounds
Neuro/Psych: Alert and Oriented
Data Reviewed
-
Date of Service: September 30, 2024
Medical Tests (PFT, Pathology etc): Report Reviewed by me
Labs: Labs Reviewed by me
--- NOTE | 2024-09-30 11:59 | W.PN.NEPH.PH ---
Today's Communication / Plan
-
isotonic saline provided
Assessment/Plan
-
IMP:
Azotemia
NANCY
mild yponatremia
MRSA Bacteremia with history of TAVR
Septic shock-resolved
Paranoid Behavior/Refusal of Care
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
very mild rhabdomyolysis-resolved
Anemia,
Thrombocytopenia
pulmonary fibrosis
MVP with Moderate Mitral Regurgitation
History of TAVR 2019
History of cardiac catheterization complicated by punctured pericardium
LUE Weakness and Pain
Left Upper Extremity Cephalic Vein Thrombosis on Peripheral Vascular Ultrasound from 09/26/24
Multilevel neural foraminal osseous encroachment, greatest on the left from C3-C7
Urinary Retention
Constipation
Compression Fractures on CT Imaging
Alzheimer's Dementia
Coronary Artery Calcification
Hypertension
Hyperlipidemia
History of Total knee arthroplasty
History of likely osteomyelitis of right fifth toe/surrounding cellulitis
History of MRSA
Plan:
A/w FTT, fall, found MRSA bacteremia
Significant azotemia-with underlying pulm HTN and possible prerenal with poor po intake
Bladder scan 246cc, checked FEna : consistent with strong pre renal stimulus
BUN and creatinine improving with IV fluids which will be continued
Azotemia and hyponatremia improved with saline
mild NANCY-likely MARIA L, cr stable 1.0 and UOP not measured well
UA with microhematuria, pyuria and bacteria+, no growth on cx
hgb stable and no steroid use , CT on admit no hydro
BNP was high on 09/26
volume status seem stable on RA and no JVD,
encourage po intake
BP stable now, check ortho vitals if possible
Thrombocytopenia -heme consulted, Brayden started and HIT sent
abx per ID and ALMA when family agrees
monitor mild hyponatremia-check U osmo:727
labs in am
d/w nursing
-
-
Date of Service: September 30, 2024
CC / HPI / ROS
-
Chief Complaint:
Azotemia
Hyponatremia
History of Present Illness:
Sodium and azotemia and fluid with normal saline
Hemodynamically stable
Review of Systems:
Confused
Fever
Appears chronically ill
Labs
-
Labs:
WBC 10.5 10^3/uL (4.8-10.8) 09/30/24 04:13
RBC 3.39 10^6/uL (4.70-6.10) L 09/30/24 04:13
Hgb 11.4 g/dL (13.0-18.0) L 09/30/24 04:13
Hct 33.0 % (39.0-52.0) L 09/30/24 04:13
Plt Count 108 10^3/uL (130-400) L 09/30/24 04:13
Sodium 137 mmol/L (135-145) 09/30/24 04:13
Potassium 4.0 mmol/L (3.5-5.1) 09/30/24 04:13
Chloride 104 mmol/L (98-107) 09/30/24 04:13
Carbon Dioxide 25 mmol/L (22-30) 09/30/24 04:13
BUN 101 mg/dl (9-20) H* 09/30/24 04:13
Creatinine 1.0 mg/dL (0.7-1.3) 09/30/24 04:13
eGFR > 60.00 09/30/24 04:13
Glucose 110 mg/dl (70-99) H 09/30/24 04:13
Calcium 8.4 mg/dl (8.4-10.2) 09/30/24 04:13
Phosphorus 3.4 mg/dl (2.5-4.5) 09/24/24 07:57
Mje-B-Rtogvctirtl Pept > 98460 pg/ml 09/26/24 04:14
Albumin 2.3 g/dl (3.5-5.0) L 09/28/24 13:18
Physical Exam
-
Vital Signs:
Vital Signs
Temp Pulse Resp BP Pulse Ox
98.5 F 65 16 145/94 97
09/30/24 07:05 09/30/24 07:05 09/30/24 07:05 09/30/24 07:05 09/30/24 07:05
Cardiovascular:: Regular rate and rhythm
Respiratory:: Bilateral: Coarse
Lung Excursion:: Normal
Abdomen:: Nontender and Soft
Bowel Sounds:: Decreased
Extremity Edema:: None: Bilateral:
Vegas Catheter: No
[2024-09-30] MEDS: NSS 1000 IV (12:11)
[2024-09-30] MEDS: VANCOCIN HCL 500 MG 100 IV (12:12)
--- NOTE | 2024-09-30 12:54 | CM ---
consulting services project manager reviewed patient's chart and met with patient and contacted Wally patient's emergency contact. Patient has in and out of network benefit, zero copay for up till 120 days, plan is for skilled placement, patient has been denied at [facility]
Home admissions spoke with [facility] directly regarding denial, patient has also been denied at [place].
Plan; Skilled Placement will follow up with admissions at [facility].
--- NOTE | 2024-09-30 15:06 | W.PN.UPDATE ---
Update Note
Progress Note Update
Pt seen, chart reviewed. Pt resting in bed, in no acute distress. Noted with decreased O2 sat. Repeat Covid-19 test negative. Pt overall noted to be cooperative with care. Brain MRI- mild atrophy/small vessel ischemic dz, no acute abnormality.
Imp/Rec: Dementia, with progressive decline, now more cooperative with care
Encephalopathy- neurodegenerative/infectious
Rec: would continue to hold off antipsychotic medications. Psychiatry will sign off. Please reconsult for any new concerns
--- NOTE | 2024-09-30 15:20 | WOUNDNOTE ---
TIARRA RN NOTE: Followed up today with assist of PCT. Patient resisting turning, patient repositioned onto R semi side lying position. Sacral/gluteal cleft wounds appears domestic cleaner, has few maroon colored lines visible. Patient had a fall before
admission, possible that patient fell onto buttock causing now visible red fountain. Patient confused and poor historian. Dressing changed, recommend continue honey gel and offloading. Air overlay with adequate inflation, palm check done. Nurse Atiya
reports patient not eating very much. Heels are intact, pillow under calves. Despite preventative measures, patient at risk for developing PI due to comorbidities and poor nutrition. Will follow as needed.
--- NOTE | 2024-09-30 15:32 | W.PN.ID1 ---
Date of Service
Date of Service: September 30, 2024
Today's Communication
Continue antibiotics.
Assessment / Plan
Fever
- improved
Bacteremia with MRSA
- sustained
- hx TAVR
Leukocytosis
- improved
Elevated BNP
Elevated ESR/CRP
HTN
Alzheimer's dementia
Recommendations:
Blood cultures positive for MRSA, concerning given presence of TAVR.
Continue with vancomycin. Monitor Vanco levels closely.
Follow repeat blood cultures.
Family has declined ALMA.
Continue to follow clinically.
����������������������������������������������������������
Chief Complaint
-: Leukocytosis and Bacteremia (MRSA)
Subjective / Review of Systems
Patient seen and examined. No significant changes overnight. Denies back pain.
Review of Systems: No Fever and No Chills
Vital Signs / Physical Exam
Vital Signs
Vital Signs
Temp Pulse Resp BP Pulse Ox
98.0 F 65 18 128/58 94
09/30/24 11:05 09/30/24 11:05 09/30/24 11:05 09/30/24 11:05 09/30/24 11:05
Physical Exam
Constitutional: Comfortable, Chronically Ill and Non-toxic
Eyes: No Conjunctival Hemorrhage and Sclera Anicteric
Cardiovascular: Regular Rate and S1/S2; Negative S3/S4 or Murmur
Pulmonary: Clear; Negative Wheezes, Rales or Rhonchi
Gastrointestinal: Soft, Non Tender and Non Distended
Extremities: Edema; Negative Cyanosis, Erythema, Splinter Hemorrhage, Calf Swelling or Janeway Lesions
Musculoskeletal: Negative Spinal Tenderness
Skin: Negative Rash or Jaundice
Neurological: Awake
Psychological: Calm and Confused
Objective Data
Lab Data
Lab Results
09/30/24 04:13
09/30/24 04:13
ESR 48 mm/hour (0-20) H 09/28/24 04:25
Estimated Creat Clear 50 ml/min 09/30/24 04:13
Lactic Acid 1.0 mmol/L (0.7-2.0) 09/26/24 04:14
Total Bilirubin 0.5 mg/dl (0.2-1.3) 09/28/24 13:18
AST 50 U/L (17-59) 09/28/24 13:18
ALT 32 U/L (0-50) 09/28/24 13:18
Alkaline Phosphatase 76 U/L (38-126) 09/28/24 13:18
C-Reactive Protein 21.40 mg/L (0.0-10.00) H 09/28/24 04:25
Most recent labs reviewed.
Micro Results:
09/28/24 13:31 Blood Culture - Preliminary
Blood/Venous No Growth in 48 hours- Final report to follow
09/27/24 14:25 Blood Culture - Preliminary
Blood/Venous Staph aureus MRSA
Gram Stain - Preliminary
09/30/24 07:42 Blood Culture - Pending
Blood/Venous
09/26/24 07:53 Blood Culture - Final
Blood/Venous Staph aureus MRSA
Gram Stain - Final
09/27/24 04:24 Urine Culture - Final
Urine NO GROWTH
09/26/24 04:14 Blood Culture - Final
Blood/Venous Staph aureus MRSA
Gram Stain - Final
09/26/24 11:18 Influenza Types A & B ([facility]) - Final
Nasal Swab Negative for Influenza A & B, NAAT
Negative results must be combined with clinical observations
and patient history.
Nucleic Acid Amplification test (NAAT)performed on the
[employer] platform.
09/24/24 06:26 MRSA Screen - Final
Nose No Methicillin Resistant Staphylococcus aureus isolated.
Imaging:
09/26/2024 CXR chest (portable): Mild cardiomegaly noted. Median sternotomy wires and TAVR prostatic are unchanged. Moderate reticular interstitial thickening is seen bilaterally. Hazy opacity at the left lung base noted. Please see full
dictation for additional detail.
09/26/2024 CT abdomen/pelvis without contrast: No evidence of abdominal pelvic abscess or other acute pathology. Small bubbles of air within the right anterior lower abdominal wall likely resulting from subcutaneous injections. No body wall
abscess.
09/26/2024 CT chest: No evidence of PE or thoracic aortic dissection. Trace left pleural effusion. Changes of moderate interstitial fibrosis noted. Please see full dictation for additional detail.
Care Review
Plan reviewed with: Physician (Cardiology; Hospitalist)
--- NOTE | 2024-09-30 16:05 | W.PN.HOSP.TC ---
Today's Communication/Plan
-
f/u blood cs report
repeat cbc check
f/u hbg level
discontinue PICC Line
Assessment / Plan
Assessment / Plan
CT Chest/abd/pel W Iv Cont
1. Trace left pleural effusion.
2. Mild T10 and T12 compression fractures, both new from 04/05/2023 and likely acute/subacute. Recommend correlation for any point tenderness in this region.
3. No other significant acute abnormality identified in the chest, abdomen or pelvis, as described above. Stable changes of chronic interstitial lung disease.
4. Moderate diffuse colonic stool burden may reflect constipation.'
CTA of the chest with intravenous contrast
1. No evidence of pulmonary embolism or thoracic aortic dissection.
2. Trace left pleural effusion, new compared to 09/23/2024.
3. Changes of moderate interstitial fibrosis, unchanged compared to multiple prior studies, including 04/05/2023.
4. Mild dilation of the ascending thoracic aorta, which measures 3.7 cm in greatest orthogonal dimension. No significant change compared to prior studies, including 04/05/2023.
5. Stable prominence of the main pulmonary trunk, suggestive of pulmonary arterial hypertension in the correct clinical setting.'
Noncontrast CT examination of the abdomen and pelvis
1. No evidence of abdominal pelvic abscess or other acute pathology.
2. Small bubbles of air within the right anterior lower abdominal wall, likely resulting from subcutaneous injections. No body wall abscess.
3. Small left pleural effusion, also seen on CTA of the chest. Bibasilar interstitial fibrosis.'
Echocardiogram
Normal left ventricular size and systolic function without regional wall motion abnormalities. LVEF 60-65%.
Right ventricle is mildly dilated with normal systolic function. Biatrial enlargement.
Bileaflet mitral valve prolapse with moderate mitral regurgitation. Well-seated TAVR with normal function (peak/mean 19/8 mmHg).
Mild to moderate tricuspid regurgitation. Estimated PASP 44 mmHg. Interatrial septum bowed to the right consistent with elevated left atrial pressure.
Chest x-ray 09/26/2024-left lower lobe pneumonia, nondisplaced fracture through the distal right clavicle

1. MRSA bacteremia
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
Septic shock - resolved
Acute hypoxic resp insufficiency - resolved
-Was on pressors and oxygen in ICU, now resolved
-Blood culture on 09/26 and 09/27 grew MRSA. Culture from 09/28 has been negative, continue follow
-Sacral wound pictures reviewed, no deep skin break.
-TTE did not show any valvular vegetation. As patient not a surgical candidate and increased risk, cardio recommended against ALMA
-Patient currently on vancomycin and ID help appreciated
-Patient clinically will be treated as possible prosthetic valve endocarditis at this point. Right arm PICC line to be removed and changed to peripheral line. Will replace PICC line once bacterial clearance confirmed.
2. Dementia with behavioral problems
-Psychiatry evaluated patient and have appreciated
-At this point patient remains somnolent during daytime, awake during the night. Starting on Zyprexa 2 and half milligram at bedtime to help the situation.
-Patient also developing new uremia, reason of which is unclear at this point. Continue monitor.
3. Mild rhabdomyolysis
History of mechanical fall
-Resolved at this point
4. Sacral stage II pressure injury
-Wound care nurse on board, wound pictures reviewed
-reported blood in underwear/toilet at admission
-BUN going up, hbg remains stable. normal cr.
5. 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
-Mild RV Dilation on September 2024 Echocardiogram
-Chest x-ray reviewed and may have chronic changes of pulmonary fibrosis
6. Left cephalic vein thrombus
-Superficial venous thrombus and ideally does not require to be treated, although patient bedbound and increased risk of VTE
-Patient has been started on Eliquis, will need to be held if patient develops GI Bleed.
7. Mild thrombocytopenia
-Secondary to MRSA bacteremia, monitor
Biatrial Enlargement
MVP with Moderate Mitral Regurgitation
Elevated left atrial pressure
History of TAVR
History of cardiac catheterization complicated by punctured pericardium
Coronary artery calcification, on aspirin and pravastatin
Multilevel neural foraminal osseous encroachment, greatest on the left from C3-C7, as per radiologist's report from CT of the Cervical Spine
Urinary Retention -Was on Flomax outpatient, but PCP had stopped it (as per nurse on 09/27/24)
Macrocytic Anemia
Hematuria on Urinalysis
Coronary Artery Calcification
Essential Hypertension
Hyperlipidemia
BPH
History of Total knee arthroplasty
History of likely osteomyelitis of right fifth toe/surrounding cellulitis
Underweight
DVT Prophylaxis: lovenox
Code Status: DNR
Total time spent : 52mins
Anticipated Discharge: > 48 hours
Subjective/Interval History
-
Date of Service: September 30, 2024
afebrile overnight
patient is somnolent
waking up on physical movement
Objective Data
-
Labs:
Laboratory Results
09/30/24
04:13
WBC 10.5
Hgb 11.4 L
Hct 33.0 L
Plt Count 108 L
Sodium 137
Potassium 4.0
Chloride 104
Carbon Dioxide 25
BUN 101 H*
Creatinine 1.0
Glucose 110 H
Calcium 8.4
Vital Signs:
Vital Signs
Temp Pulse Resp BP Pulse Ox
98.0 F 65 18 128/58 94
09/30/24 11:05 09/30/24 11:05 09/30/24 11:05 09/30/24 11:05 09/30/24 11:05
I&O
09/29/24 09/30/24 10/01/24
06:59 06:59 06:59
Intake Total 560 / 560 680 / 680
Output Total 200 / 200 100 / 100
Balance 360 / 360 580 / 580
Review of Systems
-
Unable to obtain full review of systems at this time due to: Dementia
Physical Exam
-
General: Comfortable
HEENT: Negative Oxygen
Respiratory: Clear to Auscultation
Cardiac: Regular Rhythm and S1/S2; Negative Murmur or Rub
GI: Soft, Nontender and Nondistended
Musculoskeletal: No Edema
Neuro: Other (Somnolent)
Psych: Calm
[2024-09-30 17:32] LABS: Hematocrit 31.2 % (39.0-52.0); Hemoglobin 10.9 g/dL (13.0-18.0); Mean Corp Hgb Conc. 34.9 g/dL (33.0-37.0); Mean Corpuscular Hgb 33.2 pg (27.0-31.0); Mean Corpuscular Volume 95.1 fL (80.0-94.0); Mean Platelet Volume 9.4 fL (7.4-10.4); Platelet Count 119 10^3/uL (130-400); Red Blood Cell Count 3.28 10^6/uL (4.70-6.10); Red Cell Dist. Width 12.8 % (11.5-14.5); White Blood Cell Count 9.6 10^3/uL (4.8-10.8)
[2024-09-30] MEDS: ELIQUIS PO (18:52)
[2024-09-30 19:36] VITALS: BP 109/68
[2024-09-30] MEDS: ZYPREXA PO (21:28)
[2024-09-30 23:19] VITALS: BP 110/69
[2024-10-01] VITALS (8 sets, daily range): BP systolic 109–126; BP diastolic 65–86; PULSE 94; O2SAT 93–97; BMI 18.7
[2024-10-01 07:33] LABS: Reticulocyte Count 0.8 % (0.4-2.8)
[2024-10-01 07:49] LABS: Vancomycin Random 14.8 ug/ml
[2024-10-01 07:57] LABS: Fibrinogen 521 MG/DL (199-459)
[2024-10-01 07:59] LABS: D-Dimer 2.26 ug/mlFEU (0.00-0.50)
--- NOTE | 2024-10-01 08:00 | PN.CDI ---
CDI
- -
CDI:
Physician Documentation Request
Admit Date: 09/23/24 18:19
Dear Doctor Nilesh,
Please review the following and provide your response in the progress notes.
Clinical Indicators:
- 09/30 Drying Tunnel Operator indicates moderate protein calorie malnutrition
- Poor nutrient intake <75% energy needs for >/=1 month
- Mild subcutaneous loss over orbital
- Mild muscle loss over temporal
Based on the above information and your assessment, which of the following most accurately represents the patient's nutritional status?
Moderate protein calorie malnutrition
Other (please specify)
Seiling Criteria ([facility] Hospitalist 2017)
2 or more criteria must be present for either
non severe or severe malnutrition
Note that the criteria differs related to the
presence of an acute or chronic illness
Acute Illness Chronic Illness
Energy Intake Non Severe: <75% for >7 days Non Severe: <75% for >1 month
Severe: <50% for >5 days Severe: <75% for >1 month
Weight Loss Non Severe: 1-2% over 1 week Non Severe: 5% over 1 month
5% over 1 month 7.5% over 3 months
7.5% over 3 months 10% over 6 months
1 year N/A 20% over 1 year
Severe: >2% over 1 week Severe: >5% over 1 month
>5% over 1 month >7.5% over 3 months
>7.5% over 3 months >10% over 6 months
1 year N/A >20% over 1 year
Body Fat Non Severe: Mild Decrease Non Severe: Mild Loss
Severe: Moderate Decrease Severe: Severe Loss
Muscle Mass Non Severe: Mild Decrease Non Severe: Mild Loss
Severe: Moderate Decrease Severe: Severe Loss
Fluid Accumulation Non Severe: Mild Accumulation Non Severe: Mild Accumulation
Severe: Moderate to severe Severe: Moderate to severe
accumulation accumulation
Reduced Construction Skills Teacher Strength Non Severe: N/A Non Severe: N/A
Severe: Measurably reduced Severe: Measurably reduced
Additional criteria that can be used to Determine if Mild or Moderate Malnutrition (Merck Manual 2018)
Mild Moderate Severe
Albumin gm/dl <3.0 gm/dl <2.5 gm/dl <2.0 gm/dl
Pre Albumin mg/dl <15 gm/dl <10 mg/dl <5.0 mg/dl
BMI <18.5 <17 <16
Use of terms such as suspected, likely, concern for, or probable (associated with a specific diagnosis that is being evaluated, monitored, or treated as if it exists) are acceptable and can be coded in the inpatient setting, when documented at the
time of discharge.
Thank you,
Zach Bennett RN
CDI Specialist
Please use your independent medical judgment in providing your response.
[2024-10-01 08:08] LABS: Blood Urea Nitrogen 95 mg/dl (9-20); Calcium 8.5 mg/dl (8.4-10.2); Carbon Dioxide 23 mmol/L (22-30); Chloride 107 mmol/L (98-107); Estimated Creatinine Clearance 48 ml/min; Glucose 94 mg/dl (70-99); LDH 341 U/L (120-246); Potassium 4.2 mmol/L (3.5-5.1); Sodium 139 mmol/L (135-145); eGFR > 60.00
--- NOTE | 2024-10-01 08:31 | W.PN.CD ---
Today's Communication / Plan
-
continue current medical management
Will sign off. Please call back with questions.
Impression / Plan
-
BACKGROUND: 83M with coronary artery calcification, pulmonary fibrosis, hypertension, dyslipidemia, severe aortic stenosis s/p TAVR, MVP with mitral regurgitation, and Alzheimer's dementia who presented after a fall. He has had a significant
decline over the past 3-4 weeks. Cardiology has been consulted for worsened MR on TTE.
Primary sampler first: Dr. Dueñas.
IMPRESSION/PLAN:
Fever, hypotension,septic shock: MRSA bacteremia
-Afebrile since 09/26/2024
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
-Treat for Endocarditis.
Frequent PVC's
-on tele, no sxs. Stable
Worsened Alzheimer's dementia with hallucination, per primary service
s/p TAVR (Grecia, 2019), stable on most recent echocardiogram issues related to bacteremia possibility of endocarditis as noted above.
MVP with moderate mitral regurgitation
Sinus bradycardia :asx, follow telemetry, currently SR
Idiopathic pulmonary fibrosis with bronchiectasis,
Coronary artery calcification, on aspirin and pravastatin
h/o EP study, complicated by perforation, led to emergent open heart surgery (Grecia, 2001)
Echo 09/24/24 EF 60-65%MVP and modertae MR, TAVR . mean gradient 8mmHg. No AR. MMild to mod TR . PASP 44mmHg
SUBJECTIVE:
patient is alert and calm, no meaniful history provided.
DATA:
Transthoracic echocardiogram, 09/24/2024:
CONCLUSIONS
Normal left ventricular size and systolic function without regional wall motion
abnormalities. LVEF 60-65%.
Right ventricle is mildly dilated with normal systolic function.
Biatrial enlargement.
Bileaflet mitral valve prolapse with moderate mitral regurgitation.
Well-seated TAVR with normal function (peak/mean 19/8 mmHg).
Mild to moderate tricuspid regurgitation. Estimated PASP 44 mmHg.
Interatrial septum bowed to the right consistent with elevated left atrial
pressure.
Compared to prior echocardiogram on 06/07/2024, mitral regurgitation has
increased in severity. It was previously mild to moderate and is now solidly
moderate. Aortic valve gradients are stable. PASP has increased from 28 mmHg
to 44 mmHg. There is now evidence of elevated left atrial pressure.
Physical Exam
Vital Signs/Labs
Vital Signs
Temp Pulse Resp BP Pulse Ox
98.3 F 69 18 110/67 93
10/01/24 03:06 10/01/24 03:06 10/01/24 03:06 10/01/24 03:06 10/01/24 03:06
09/30/24 10/01/24 10/02/24
06:59 06:59 06:59
Actual Weight 61.462 kg 59.052 kg
09/30/24 17:18
10/01/24 06:52
Magnesium 2.4 mg/dl (1.6-2.3) H 09/29/24 04:30
09/26/24
04:14
Qqa-[id number] Pept > [id number]
Physical Exam
Constitutional: No acute distress and Comfortable
Cardiovascular: Rhythm & rate is regular, Systolic murmur absent and Diastolic murmur absent
Respiratory: Respiratory effort normal and Crackles Present (Bibasilar, fine)
Neuro/Psych: Alert and Oriented (Not oriented to person place or time)
Data Reviewed
-
Date of Service: October 01, 2024
EKG: Other (tele Sinus with PVCs)
--- NOTE | 2024-10-01 08:35 | PHA.VAN.FU ---
Vancomycin Assessment / Plan
- Assessment
Renal Function: Stable (BUN trending down)
In the past 24 hrs, patient has been: Afebrile
- Assessment - Therapeutic Drug Monitoring
Random Level: 14.8 - drawn ~18.5H after 500mg
- Dosing Plan
Dosing by Level: Re-dose today (Vanc 500mg)
- Monitoring Plan
Random Level: 10/02 0600
- Follow Up
Pharmacy will continue to follow.
Vancomycin Follow UP
- -
Patient Age: 83
Patient Sex: Male
Vancomycin Day #: 6
Indication: Bacteremia
Requesting Provider: Dr. Rodriguez / Joo
Pertinent Antimicrobial Allergies:
penicillins - unknown
Height / Weight:
Height 5 ft 10 in
Actual Weight 59.052 kg
IBW in k
Pertinent Past Medical History: BMI ~19
- Vital Signs / Lab Results
Temp Pulse Resp BP Pulse Ox
98.3 F 69 18 110/67 93
10/01/24 03:06 10/01/24 03:06 10/01/24 03:06 10/01/24 03:06 10/01/24 03:06
Lab Results - Hematology
09/28/24 09/29/24 09/30/24
13:18 04:30 04:13
WBC 7.2 8.4 10.5
09/30/24
17:18
WBC 9.6
Lab Results - Chemistry
09/28/24 09/29/24 09/30/24
13:18 04:30 04:13
BUN 93 H 105 H* 101 H*
Creatinine 1.3 1.3 1.0
Estimated Creat Clear 36 39 50
Albumin 2.3 L
10/01/24
06:52
BUN 95 H
Creatinine 1.0
Estimated Creat Clear 48
Albumin
Microbiology Results
09/30/24 07:42 Blood Culture - Preliminary
Blood/Venous No Growth in 24 hours- Final report to follow
09/26/24 04:14 Blood Culture - Final
Blood/Venous Staph aureus MRSA
Gram Stain - Final
09/28/24 13:31 Blood Culture - Preliminary
Blood/Venous No Growth in 48 hours- Final report to follow
09/27/24 14:25 Blood Culture - Preliminary
Blood/Venous Staph aureus MRSA
Gram Stain - Preliminary
09/26/24 07:53 Blood Culture - Final
Blood/Venous Staph aureus MRSA
Gram Stain - Final
Therapeutic Drug Monitoring
Random Vancomycin 14.8 ug/ml 10/01/24 06:52
[2024-10-01] MEDS: PRAVACHOL 20 MG PO (09:03)
[2024-10-01] MEDS: MIRALAX 17 GRAMS PO (09:03)
[2024-10-01] MEDS: ELIQUIS PO (09:04)
[2024-10-01 09:13] LABS: Folate 11.5 ng/ml (2.76-20)
--- NOTE | 2024-10-01 10:12 | CM ---
Chart reviewed per family plan is for skilled placement, patient is currently on med sitter, and per nursing patient is not eating. Referrals were sent to [facility] and both facilities have denied patient, referral sent to
[facility] and they are requesting financial application, case reviewer will reach out to Wally, patient's nephew and primary contact to complete application form. Patient has both in network benefit and out of network benefit with his [employer] insurance.
Plan; skilled placement.
[2024-10-01 11:45] LABS: Glucose - Point of Care 103 mg/dl (70-99)
[2024-10-01] MEDS: VANCOCIN HCL 500 MG 100 IV (11:57)
[2024-10-01] MEDS: D5LR 1000 IV (13:22)
--- NOTE | 2024-10-01 14:28 | W.PN.HOSP.TC ---
Addendum entered and electronically signed by Willem Galloway MD 10/01/24 18:15:
Add on to diagnosis list:
Moderate protein calorie malnutrition
Original Note:
Today's Communication/Plan
-
see note
Assessment / Plan
Assessment / Plan
CT Chest/abd/pel W Iv Cont
1. Trace left pleural effusion.
2. Mild T10 and T12 compression fractures, both new from 04/05/2023 and likely acute/subacute. Recommend correlation for any point tenderness in this region.
3. No other significant acute abnormality identified in the chest, abdomen or pelvis, as described above. Stable changes of chronic interstitial lung disease.
4. Moderate diffuse colonic stool burden may reflect constipation.'
CTA of the chest with intravenous contrast
1. No evidence of pulmonary embolism or thoracic aortic dissection.
2. Trace left pleural effusion, new compared to 09/23/2024.
3. Changes of moderate interstitial fibrosis, unchanged compared to multiple prior studies, including 04/05/2023.
4. Mild dilation of the ascending thoracic aorta, which measures 3.7 cm in greatest orthogonal dimension. No significant change compared to prior studies, including 04/05/2023.
5. Stable prominence of the main pulmonary trunk, suggestive of pulmonary arterial hypertension in the correct clinical setting.'
Noncontrast CT examination of the abdomen and pelvis
1. No evidence of abdominal pelvic abscess or other acute pathology.
2. Small bubbles of air within the right anterior lower abdominal wall, likely resulting from subcutaneous injections. No body wall abscess.
3. Small left pleural effusion, also seen on CTA of the chest. Bibasilar interstitial fibrosis.'
Echocardiogram
Normal left ventricular size and systolic function without regional wall motion abnormalities. LVEF 60-65%.
Right ventricle is mildly dilated with normal systolic function. Biatrial enlargement.
Bileaflet mitral valve prolapse with moderate mitral regurgitation. Well-seated TAVR with normal function (peak/mean 19/8 mmHg).
Mild to moderate tricuspid regurgitation. Estimated PASP 44 mmHg. Interatrial septum bowed to the right consistent with elevated left atrial pressure.
Chest x-ray 09/26/2024
left lower lobe pneumonia, nondisplaced fracture through the distal right clavicle

1. MRSA bacteremia
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
Septic shock - resolved
Acute hypoxic resp insufficiency - resolved
-Was on pressors and oxygen in ICU, now resolved
-Blood culture on 09/26 and 09/27 grew MRSA. Culture from 09/28 has been negative, continue follow
-Sacral wound pictures reviewed, no deep skin break.
-TTE did not show any valvular vegetation. As patient not a surgical candidate and increased risk, cardio recommended against ALMA
-Patient currently on vancomycin and ID help appreciated
-Patient clinically will be treated as possible prosthetic valve endocarditis at this point. Right arm PICC line to be removed and changed to peripheral line. Will replace PICC line once bacterial clearance confirmed.
2. Dementia with behavioral problems
Acute encephalopathy
-Psychiatry evaluated patient and have appreciated
-At this point patient remains somnolent during daytime, awake during the night. Starting on Zyprexa 2 and half milligram at bedtime to help the situation.
-Patient also developing new uremia, reason of which is unclear at this point. provide slow IVF, check heme test stool, eliquis to be held until occult blood loss ruled out. Hbg stable nonetheless.
-MRI brain on monday ruled out any septic emboli to brain
-maintain on D5LR for next 24 hrs, poor oral intake and hypoglycemia episode. check BG for next 48 hrs
3. Mild rhabdomyolysis
History of mechanical fall
-Resolved at this point
4. Sacral stage II pressure injury
-Wound care nurse on board, wound pictures reviewed
-reported blood in underwear/toilet at admission
5. 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
-Mild RV Dilation on September 2024 Echocardiogram
-Chest x-ray reviewed and may have chronic changes of pulmonary fibrosis
6. Left cephalic vein thrombus
-Superficial venous thrombus and ideally does not require to be treated, although patient bedbound and increased risk of VTE
-Patient has been started on Eliquis, will need to be held if patient develops GI Bleed.
7. Mild thrombocytopenia
-Secondary to MRSA bacteremia likely, monitor
Biatrial Enlargement
MVP with Moderate Mitral Regurgitation
Elevated left atrial pressure
History of TAVR
History of cardiac catheterization complicated by punctured pericardium
Coronary artery calcification, on aspirin and pravastatin
Multilevel neural foraminal osseous encroachment, greatest on the left from C3-C7, as per radiologist's report from CT of the Cervical Spine
Urinary Retention -Was on Flomax outpatient, but PCP had stopped it (as per nurse on 09/27/24)
Macrocytic Anemia
Hematuria on Urinalysis
Coronary Artery Calcification
Essential Hypertension
Hyperlipidemia
BPH
History of Total knee arthroplasty
History of likely osteomyelitis of right fifth toe/surrounding cellulitis
Underweight
DVT Prophylaxis: lovenox
Code Status: DNR
Total time spent : 53 mins
Discussed care with patient son over the phone 10/01
Anticipated Discharge: > 48 hours
Subjective/Interval History
-
Date of Service: October 01, 2024
afebrile overnight
patient mentation improved, still remains sedated
no other reported problems
Objective Data
-
Labs:
Laboratory Results
10/01/24
06:52
Sodium 139
Potassium 4.2
Chloride 107
Carbon Dioxide 23
BUN 95 H
Creatinine 1.0
Glucose 94
Calcium 8.5
Vital Signs:
Vital Signs
Temp Pulse Resp BP Pulse Ox
98.2 F 74 18 126/86 95
10/01/24 11:00 10/01/24 11:00 10/01/24 11:00 10/01/24 11:00 10/01/24 11:00
I&O
09/30/24 10/01/24 10/02/24
06:59 06:59 06:59
Intake Total 680 / 680 400 / 400 630 / 630
Output Total 100 / 100
Balance 580 / 580 400 / 400 630 / 630
Review of Systems
-
Unable to obtain full review of systems at this time due to: Acuity
Physical Exam
-
General: Comfortable
HEENT: Negative Oxygen
Respiratory: Clear to Auscultation
Cardiac: Regular Rhythm and S1/S2; Negative Murmur or Rub
GI: Soft, Nontender and Nondistended
Musculoskeletal: No Edema
Neuro: Other (Somnolent)
Psych: Calm
--- NOTE | 2024-10-01 16:03 | W.PN.NEPH.PH ---
Today's Communication / Plan
-
Maintain IV fluids
Assessment/Plan
-
IMP:
Azotemia
NANCY
mild yponatremia
MRSA Bacteremia with history of TAVR
Septic shock-resolved
Paranoid Behavior/Refusal of Care
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
very mild rhabdomyolysis-resolved
Anemia,
Thrombocytopenia
pulmonary fibrosis
MVP with Moderate Mitral Regurgitation
History of TAVR 2019
History of cardiac catheterization complicated by punctured pericardium
LUE Weakness and Pain
Left Upper Extremity Cephalic Vein Thrombosis on Peripheral Vascular Ultrasound from 09/26/24
Multilevel neural foraminal osseous encroachment, greatest on the left from C3-C7
Urinary Retention
Constipation
Compression Fractures on CT Imaging
Alzheimer's Dementia
Coronary Artery Calcification
Hypertension
Hyperlipidemia
History of Total knee arthroplasty
History of likely osteomyelitis of right fifth toe/surrounding cellulitis
History of MRSA
Plan:
A/w FTT, fall, found MRSA bacteremia
Significant azotemia-with underlying pulm HTN and possible prerenal with poor po intake
Bladder scan 246cc, checked FEna : consistent with strong pre renal stimulus
BUN and creatinine improving with IV fluids which will be continued
Azotemia and hyponatremia improved with saline
mild NANCY-likely MARIA L, cr stable 1.0 and UOP not measured well
UA with microhematuria, pyuria and bacteria+, no growth on cx
hgb stable and no steroid use , CT on admit no hydro
BNP was high on 09/26
volume status seem stable on RA and no JVD,
encourage po intake
BP stable now, check ortho vitals if possible
Thrombocytopenia -heme consulted, Brayden started and HIT sent
abx per ID and ALMA when family agrees
monitor mild hyponatremia-check U osmo:727
labs in am
d/w nursing
-
-
Date of Service: October 01, 2024
CC / HPI / ROS
-
Chief Complaint:
Azotemia
Hyponatremia
History of Present Illness:
Sodium and azotemia improving with normal saline
Hemodynamically stable
Review of Systems:
Confused
Fever
Appears chronically ill
Labs
-
Labs:
WBC 9.6 10^3/uL (4.8-10.8) 09/30/24 17:18
RBC 3.28 10^6/uL (4.70-6.10) L 09/30/24 17:18
Hgb 10.9 g/dL (13.0-18.0) L 09/30/24 17:18
Hct 31.2 % (39.0-52.0) L 09/30/24 17:18
Plt Count 119 10^3/uL (130-400) L 09/30/24 17:18
Sodium 139 mmol/L (135-145) 10/01/24 06:52
Potassium 4.2 mmol/L (3.5-5.1) 10/01/24 06:52
Chloride 107 mmol/L (98-107) 10/01/24 06:52
Carbon Dioxide 23 mmol/L (22-30) 10/01/24 06:52
BUN 95 mg/dl (9-20) H 10/01/24 06:52
Creatinine 1.0 mg/dL (0.7-1.3) 10/01/24 06:52
eGFR > 60.00 10/01/24 06:52
Glucose 94 mg/dl (70-99) 10/01/24 06:52
Calcium 8.5 mg/dl (8.4-10.2) 10/01/24 06:52
Phosphorus 3.4 mg/dl (2.5-4.5) 09/24/24 07:57
Hza-O-Vlbojiytzsy Pept > 69098 pg/ml 09/26/24 04:14
Albumin 2.3 g/dl (3.5-5.0) L 09/28/24 13:18
Physical Exam
-
Vital Signs:
Vital Signs
Temp Pulse Resp BP Pulse Ox
98.2 F 74 18 126/86 95
10/01/24 11:00 10/01/24 11:00 10/01/24 11:00 10/01/24 11:00 10/01/24 11:00
Cardiovascular:: Regular rate and rhythm
Respiratory:: Bilateral: Coarse
Lung Excursion:: Normal
Abdomen:: Nontender and Soft
Bowel Sounds:: Decreased
Extremity Edema:: None: Bilateral:
Vegas Catheter: No
--- NOTE | 2024-10-01 16:13 | W.PN.ID1 ---
Date of Service
Date of Service: October 01, 2024
Today's Communication
Continue antibiotics.
Assessment / Plan
Fever
- improved
Bacteremia with MRSA
- sustained
- hx TAVR
Leukocytosis
- improved
Elevated BNP
Elevated ESR/CRP
HTN
Alzheimer's dementia
Recommendations:
Blood cultures positive for MRSA, concerning given presence of TAVR.
Continue with vancomycin. Monitor Vanco levels closely.
Follow repeat blood cultures.
Family has declined ALMA.
Continue to follow clinically.
����������������������������������������������������������
Chief Complaint
-: Leukocytosis and Bacteremia (MRSA)
Subjective / Review of Systems
Patient seen and examined with PT in the room. Noted some degree of cognitive decline since admission. Was able to arouse and have patient responsive for me during exam. Denies pain.
Vital Signs / Physical Exam
Vital Signs
Vital Signs
Temp Pulse Resp BP Pulse Ox
98.2 F 74 18 126/86 95
10/01/24 11:00 10/01/24 11:00 10/01/24 11:00 10/01/24 11:00 10/01/24 11:00
Physical Exam
Constitutional: Comfortable, Chronically Ill and Non-toxic
Eyes: No Conjunctival Hemorrhage and Sclera Anicteric
Cardiovascular: Regular Rate and S1/S2; Negative S3/S4 or Murmur
Pulmonary: Clear; Negative Wheezes, Rales or Rhonchi
Gastrointestinal: Soft, Non Tender and Non Distended
Extremities: Edema; Negative Cyanosis, Erythema, Splinter Hemorrhage, Calf Swelling or Janeway Lesions
Musculoskeletal: Negative Spinal Tenderness
Skin: Negative Rash or Jaundice
Neurological: Awake and No Motor Deficits (Patient with 5/5 lower extremity strength)
Psychological: Calm and Confused
Objective Data
Lab Data
Lab Results
09/30/24 17:18
10/01/24 06:52
ESR 48 mm/hour (0-20) H 09/28/24 04:25
Estimated Creat Clear 48 ml/min 10/01/24 06:52
Lactic Acid 1.0 mmol/L (0.7-2.0) 09/26/24 04:14
Total Bilirubin 0.5 mg/dl (0.2-1.3) 09/28/24 13:18
AST 50 U/L (17-59) 09/28/24 13:18
ALT 32 U/L (0-50) 09/28/24 13:18
Alkaline Phosphatase 76 U/L (38-126) 09/28/24 13:18
C-Reactive Protein 21.40 mg/L (0.0-10.00) H 09/28/24 04:25
Most recent labs reviewed.
Micro Results:
09/28/24 13:31 Blood Culture - Preliminary
Blood/Venous No Growth in 72 hours- Final report to follow
09/30/24 07:42 Blood Culture - Preliminary
Blood/Venous No Growth in 24 hours- Final report to follow
09/26/24 04:14 Blood Culture - Final
Blood/Venous Staph aureus MRSA
Gram Stain - Final
09/27/24 14:25 Blood Culture - Preliminary
Blood/Venous Staph aureus MRSA
Gram Stain - Preliminary
09/26/24 07:53 Blood Culture - Final
Blood/Venous Staph aureus MRSA
Gram Stain - Final
09/27/24 04:24 Urine Culture - Final
Urine NO GROWTH
09/26/24 11:18 Influenza Types A & B ([facility]) - Final
Nasal Swab Negative for Influenza A & B, NAAT
Negative results must be combined with clinical observations
and patient history.
Nucleic Acid Amplification test (NAAT)performed on the
[employer] platform.
09/24/24 06:26 MRSA Screen - Final
Nose No Methicillin Resistant Staphylococcus aureus isolated.
Imaging:
09/26/2024 CXR chest (portable): Mild cardiomegaly noted. Median sternotomy wires and TAVR prostatic are unchanged. Moderate reticular interstitial thickening is seen bilaterally. Hazy opacity at the left lung base noted. Please see full
dictation for additional detail.
09/26/2024 CT abdomen/pelvis without contrast: No evidence of abdominal pelvic abscess or other acute pathology. Small bubbles of air within the right anterior lower abdominal wall likely resulting from subcutaneous injections. No body wall
abscess.
09/26/2024 CT chest: No evidence of PE or thoracic aortic dissection. Trace left pleural effusion. Changes of moderate interstitial fibrosis noted. Please see full dictation for additional detail.
[2024-10-01 18:30] LABS: Glucose - Point of Care 132 mg/dl (70-99)
[2024-10-01 21:23] LABS: Glucose - Point of Care 120 mg/dl (70-99)
[2024-10-01] MEDS: ZYPREXA 2.5 MG PO (22:31)
[2024-10-02] MEDS: D5LR 1000 IV (02:25)
[2024-10-02 03:15] VITALS: BP 116/74
--- NOTE | 2024-10-02 04:35 | DOWNTIME ---
There was a [email or web address] Downtime on 10/02/2024 from 0100 to 10/02/2024 at 0350. Downtime documentation of patient's care, including medication administrations, has been reconciled in the electronic record per guidelines. Refer to the
patient's paper chart under the miscellaneous tab to see printed paper medication records and downtime forms.
[2024-10-02 05:27] LABS: Glucose - Point of Care 130 mg/dl (70-99)
[2024-10-02 06:00] VITALS: BMI 19.0
[2024-10-02 07:00] VITALS: BP 113/63
[2024-10-02 07:36] LABS: Vancomycin Random 17.3 ug/ml
[2024-10-02 07:46] LABS: Hematocrit 30.3 % (39.0-52.0); Hemoglobin 10.3 g/dL (13.0-18.0); Mean Corpuscular Hgb 33.1 pg (27.0-31.0); Mean Corpuscular Volume 97.4 fL (80.0-94.0); Mean Platelet Volume 9.9 fL (7.4-10.4); Platelet Count 171 10^3/uL (130-400); Red Blood Cell Count 3.11 10^6/uL (4.70-6.10); White Blood Cell Count 12.6 10^3/uL (4.8-10.8)
[2024-10-02 08:02] LABS: Blood Urea Nitrogen 107 mg/dl (9-20); Calcium 8.6 mg/dl (8.4-10.2); Carbon Dioxide 24 mmol/L (22-30); Chloride 108 mmol/L (98-107); Estimated Creatinine Clearance 31 ml/min; Glucose 166 mg/dl (70-99); Potassium 4.3 mmol/L (3.5-5.1); Sodium 140 mmol/L (135-145); eGFR 43.02
--- NOTE | 2024-10-02 08:18 | PHA.VAN.FU ---
Vancomycin Assessment / Plan
- Assessment
Renal Function: SCR Increasing
WBC's are: Trending Up
In the past 24 hrs, patient has been: Afebrile
- Assessment - Therapeutic Drug Monitoring
Random Level: 17.3 - drawn ~19H after previous dose of 500mg
- Dosing Plan
Dosing by Level: Hold off on dosing today (SCR and level increased today)
- Monitoring Plan
Random Level: 10/03 06
- Follow Up
Pharmacy will continue to follow.
Vancomycin Follow UP
- -
Patient Age: 83
Patient Sex: Male
Vancomycin Day #: 7
Indication: Bacteremia
Requesting Provider: Dr. Rodriguez / Joo
Pertinent Antimicrobial Allergies:
penicillins - unknown
Height / Weight:
Height 5 ft 10 in
Actual Weight 60.129 kg
IBW in k
Pertinent Past Medical History: BMI ~19
- Vital Signs / Lab Results
Temp Pulse Resp BP Pulse Ox
98.6 F 86 20 116/74 94
10/02/24 03:15 10/02/24 03:15 10/02/24 03:15 10/02/24 03:15 10/02/24 03:15
Lab Results - Hematology
09/30/24 09/30/24 10/02/24
04:13 17:18 07:05
WBC 10.5 9.6 12.6 H
Lab Results - Chemistry
09/30/24 10/01/24 10/02/24
04:13 06:52 07:05
BUN 101 H* 95 H 107 H*
Creatinine 1.0 1.0 1.6 H
Estimated Creat Clear 50 48 31
Microbiology Results
09/30/24 07:42 Blood Culture - Preliminary
Blood/Venous No Growth in 48 hours- Final report to follow
09/28/24 13:31 Blood Culture - Preliminary
Blood/Venous No Growth in 72 hours- Final report to follow
09/26/24 04:14 Blood Culture - Final
Blood/Venous Staph aureus MRSA
Gram Stain - Final
09/27/24 14:25 Blood Culture - Preliminary
Blood/Venous Staph aureus MRSA
Gram Stain - Preliminary
Therapeutic Drug Monitoring
Random Vancomycin 17.3 ug/ml 10/02/24 07:05
--- NOTE | 2024-10-02 08:30 | STATUS ---
SITUATION:
BACKGROUND:
ASSESSMENT:
RECOMMENDATION:
Patient with POX 84% on 2L, placed on non-rebreather mask and POX now 95%. Patient also drowsy with much difficulty following commands. Dr. Galloway updated.
[2024-10-02] MEDS: MIRALAX 17 GRAMS PO (09:29)
[2024-10-02] MEDS: PRAVACHOL 20 MG PO (09:30)
--- NOTE | 2024-10-02 09:40 | CM ---
brokerage manager reviewed patient's chart this am and met with patient and patient is currently requiring nonrebreather mask. Plan was skilled placement, nurse case manager will continue to follow with patient progress for discharge planning needs.
Plan; To follow with patient progress for any needs that may develop.
--- NOTE | 2024-10-02 10:57 | W.PN.ID1 ---
Date of Service
Date of Service: October 02, 2024
Today's Communication
Transition vancomycin to daptomycin.
Assessment / Plan
Fever
- improved
Bacteremia with MRSA
- sustained
- hx TAVR
Leukocytosis
- improved
NANCY
-Abrupt increase today
Elevated BNP
Elevated ESR/CRP
HTN
Alzheimer's dementia
Recommendations:
Blood cultures positive for MRSA, concerning given presence of TAVR.
Given rising creatinine, will transition to daptomycin. Hold statin while on daptomycin. Check baseline CK in a.m.
Follow repeat blood cultures.
Family has declined ALMA.
Continue to follow clinically.
����������������������������������������������������������
Chief Complaint
-: Leukocytosis and Bacteremia (MRSA)
Subjective / Review of Systems
Review of Systems: No Fever
Vital Signs / Physical Exam
Vital Signs
Vital Signs
Temp Pulse Resp BP Pulse Ox
98.1 F 79 14 113/63 95
10/02/24 07:00 10/02/24 07:00 10/02/24 07:00 10/02/24 07:00 10/02/24 08:20
Physical Exam
Constitutional: Comfortable, Chronically Ill and Non-toxic
Eyes: No Conjunctival Hemorrhage and Sclera Anicteric
Cardiovascular: Regular Rate and S1/S2; Negative S3/S4 or Murmur
Pulmonary: Clear; Negative Wheezes, Rales or Rhonchi
Gastrointestinal: Soft, Non Tender and Non Distended
Extremities: Edema; Negative Cyanosis, Erythema, Splinter Hemorrhage, Calf Swelling or Janeway Lesions
Musculoskeletal: Negative Spinal Tenderness
Skin: Negative Rash or Jaundice
Neurological: No Motor Deficits (5/5 lower extremity strength.) and Other (Resting, but arousable to voice and touch.)
Psychological: Calm and Confused
Objective Data
Lab Data
Lab Results
10/02/24 07:05
10/02/24 07:05
ESR 48 mm/hour (0-20) H 09/28/24 04:25
Estimated Creat Clear 31 ml/min 10/02/24 07:05
Lactic Acid 1.0 mmol/L (0.7-2.0) 09/26/24 04:14
Total Bilirubin 0.5 mg/dl (0.2-1.3) 09/28/24 13:18
AST 50 U/L (17-59) 09/28/24 13:18
ALT 32 U/L (0-50) 09/28/24 13:18
Alkaline Phosphatase 76 U/L (38-126) 09/28/24 13:18
C-Reactive Protein 21.40 mg/L (0.0-10.00) H 09/28/24 04:25
Most recent labs reviewed.
Micro Results:
09/30/24 07:42 Blood Culture - Preliminary
Blood/Venous No Growth in 48 hours- Final report to follow
09/28/24 13:31 Blood Culture - Preliminary
Blood/Venous No Growth in 72 hours- Final report to follow
09/26/24 04:14 Blood Culture - Final
Blood/Venous Staph aureus MRSA
Gram Stain - Final
09/27/24 14:25 Blood Culture - Preliminary
Blood/Venous Staph aureus MRSA
Gram Stain - Preliminary
09/26/24 07:53 Blood Culture - Final
Blood/Venous Staph aureus MRSA
Gram Stain - Final
09/27/24 04:24 Urine Culture - Final
Urine NO GROWTH
09/26/24 11:18 Influenza Types A & B ([facility]) - Final
Nasal Swab Negative for Influenza A & B, NAAT
Negative results must be combined with clinical observations
and patient history.
Nucleic Acid Amplification test (NAAT)performed on the
[employer] platform.
09/24/24 06:26 MRSA Screen - Final
Nose No Methicillin Resistant Staphylococcus aureus isolated.
Imaging:
09/26/2024 CXR chest (portable): Mild cardiomegaly noted. Median sternotomy wires and TAVR prostatic are unchanged. Moderate reticular interstitial thickening is seen bilaterally. Hazy opacity at the left lung base noted. Please see full
dictation for additional detail.
09/26/2024 CT abdomen/pelvis without contrast: No evidence of abdominal pelvic abscess or other acute pathology. Small bubbles of air within the right anterior lower abdominal wall likely resulting from subcutaneous injections. No body wall
abscess.
09/26/2024 CT chest: No evidence of PE or thoracic aortic dissection. Trace left pleural effusion. Changes of moderate interstitial fibrosis noted. Please see full dictation for additional detail.
Care Review
Plan reviewed with: Physician (Hospitalist)
[2024-10-02 11:33] VITALS: BP 119/77
[2024-10-02 12:16] LABS: Glucose - Point of Care 132 mg/dl (70-99)
[2024-10-02] MEDS: CUBICIN 12 MG IV (12:44)
[2024-10-02] MEDS: FLUSH (NSS) 1 FLUSH IV (12:47)
--- NOTE | 2024-10-02 13:09 | W.PN.HOSP.TC ---
Addendum entered and electronically signed by Willem Galloway MD 10/02/24 17:04:
RN reported that patient was not draining any urine through catheter,
RN tried to reposition with deflating/reinflating balloon
Patient had some discomfort although no significant resistance during reinflation.
Return of 5 mL of blood in the Vegas bag
Bladder scan showing 150 mL of urine in the bladder
Discussed with on-call urology who recommended to exchange Vegas catheter
If any further issues, RN to contact on-call urology for help.
Original Note:
Today's Communication/Plan
-
see note
Assessment / Plan
Assessment / Plan
CT Chest/abd/pel W Iv Cont
1. Trace left pleural effusion.
2. Mild T10 and T12 compression fractures, both new from 04/05/2023 and likely acute/subacute. Recommend correlation for any point tenderness in this region.
3. No other significant acute abnormality identified in the chest, abdomen or pelvis, as described above. Stable changes of chronic interstitial lung disease.
4. Moderate diffuse colonic stool burden may reflect constipation.'
CTA of the chest with intravenous contrast
1. No evidence of pulmonary embolism or thoracic aortic dissection.
2. Trace left pleural effusion, new compared to 09/23/2024.
3. Changes of moderate interstitial fibrosis, unchanged compared to multiple prior studies, including 04/05/2023.
4. Mild dilation of the ascending thoracic aorta, which measures 3.7 cm in greatest orthogonal dimension. No significant change compared to prior studies, including 04/05/2023.
5. Stable prominence of the main pulmonary trunk, suggestive of pulmonary arterial hypertension in the correct clinical setting.'
Noncontrast CT examination of the abdomen and pelvis
1. No evidence of abdominal pelvic abscess or other acute pathology.
2. Small bubbles of air within the right anterior lower abdominal wall, likely resulting from subcutaneous injections. No body wall abscess.
3. Small left pleural effusion, also seen on CTA of the chest. Bibasilar interstitial fibrosis.'
Echocardiogram
Normal left ventricular size and systolic function without regional wall motion abnormalities. LVEF 60-65%.
Right ventricle is mildly dilated with normal systolic function. Biatrial enlargement.
Bileaflet mitral valve prolapse with moderate mitral regurgitation. Well-seated TAVR with normal function (peak/mean 19/8 mmHg).
Mild to moderate tricuspid regurgitation. Estimated PASP 44 mmHg. Interatrial septum bowed to the right consistent with elevated left atrial pressure.
Chest x-ray 09/26/2024
left lower lobe pneumonia, nondisplaced fracture through the distal right clavicle

1. MRSA bacteremia
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
Septic shock - resolved
Acute hypoxic resp insufficiency - resolved
-Was on pressors and oxygen in ICU, now resolved
-Blood culture on 09/26 and 09/27 grew MRSA. Culture from 09/28 has been negative, continue follow
-Sacral wound pictures reviewed, no deep skin break.
-TTE did not show any valvular vegetation. As patient not a surgical candidate and increased risk, cardio recommended against ALMA
-Patient currently on vancomycin and ID help appreciated
-Patient clinically will be treated as possible prosthetic valve endocarditis at this point. Right arm PICC line to be removed and changed to peripheral line. Will replace PICC line once bacterial clearance confirmed.
2. Dementia with behavioral problems
Acute encephalopathy
-Psychiatry evaluated patient and have appreciated
-At this point patient remains somnolent during daytime, awake during the night. Starting on Zyprexa 2 and half milligram at bedtime to help the situation.
-Elevated BUN -ruling out occult GI blood loss, stool test pending. Developed new renal dysfunction today and will be confounded by this
-MRI brain on monday ruled out any septic emboli to brain
-maintain on D5LR for next 24 hrs, poor oral intake and hypoglycemia episode. check BG for next 48 hrs
3. NANCY
-New renal dysfunction with creatinine elevated to 1.6
-No episodes of hypotension overnight
-Vegas catheter placed to avoid any postrenal NANCY
-Patient was provided IVF and with increased right sided pressure - congestive nephropathy can also cause renal dysfunction. Repeat BMP at 1500 ordered, will consider dose of IV Lasix based on BMP
-Discussed with ID and although Vanco trough/peak levels were within normal range, considering changing abx
4. 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
Acute hypoxic resp failure
-Mild RV Dilation on September 2024 Echocardiogram
-Chest x-ray reviewed and may have chronic changes of pulmonary fibrosis
-Repeat chest x-ray today showing developing pulmonary edema/congestion
-Will trial dose of IV Lasix based on repeat BMP in afternoon
5. Mild rhabdomyolysis
History of mechanical fall
-Resolved at this point
6. Sacral stage II pressure injury
-Wound care nurse on board, wound pictures reviewed
-reported blood in underwear/toilet at admission
6. Left cephalic vein thrombus
-Superficial venous thrombus and ideally does not require to be treated
-Eliquis being held for now with unexplained uremia/occult blood loss rule out. Hbg drifting slowly down.
7. Mild thrombocytopenia
-Secondary to MRSA bacteremia likely, monitor
Biatrial Enlargement
MVP with Moderate Mitral Regurgitation
Elevated left atrial pressure
History of TAVR
History of cardiac catheterization complicated by punctured pericardium
Coronary artery calcification, on aspirin and pravastatin
Multilevel neural foraminal osseous encroachment, greatest on the left from C3-C7, as per radiologist's report from CT of the Cervical Spine
Urinary Retention -Was on Flomax outpatient, but PCP had stopped it (as per nurse on 09/27/24)
Macrocytic Anemia
Hematuria on Urinalysis
Coronary Artery Calcification
Essential Hypertension
Hyperlipidemia
BPH
History of Total knee arthroplasty
History of likely osteomyelitis of right fifth toe/surrounding cellulitis
Underweight
DVT Prophylaxis: eliquis
Code Status: DNR
Total time spent : 52 mins
Case discussed with patient nephew at bedside
Discussed with ID/nephrology
Anticipated Discharge: > 48 hours
Subjective/Interval History
-
Date of Service: October 02, 2024
hypoxic requiring nonrebreather support
afebrile in night
waking up on verbal cue
Objective Data
-
Labs:
Laboratory Results
10/02/24
07:05
WBC 12.6 H
Hgb 10.3 L
Hct 30.3 L
Plt Count 171 D
Sodium 140
Potassium 4.3
Chloride 108 H
Carbon Dioxide 24
BUN 107 H*
Creatinine 1.6 H
Glucose 166 H
Calcium 8.6
Vital Signs:
Vital Signs
Temp Pulse Resp BP Pulse Ox
98.1 F 71 18 119/77 99
10/02/24 07:00 10/02/24 11:33 10/02/24 11:33 10/02/24 11:33 10/02/24 11:33
I&O
10/01/24 10/02/24 10/03/24
06:59 06:59 06:59
Intake Total 400 / 400 630 / 630
Balance 400 / 400 630 / 630
Review of Systems
-
Unable to obtain full review of systems at this time due to: Dementia and Acuity
Physical Exam
-
General: Comfortable
HEENT: Negative Oxygen
Respiratory: Crackles and Other (o2 NRB )
Cardiac: Regular Rhythm and S1/S2; Negative Murmur or Rub
GI: Soft, Nontender and Nondistended
Musculoskeletal: No Edema
Neuro: Awake and No Motor Deficits; Negative Alert or Oriented
Psych: Calm
--- NOTE | 2024-10-02 15:42 | W.PN.NEPH.PH ---
Today's Communication / Plan
-
see plan
Assessment/Plan
-
IMP:
Azotemia
NANCY
mild yponatremia
MRSA Bacteremia with history of TAVR
Septic shock-resolved
Paranoid Behavior/Refusal of Care
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
very mild rhabdomyolysis-resolved
Anemia,
Thrombocytopenia
pulmonary fibrosis
MVP with Moderate Mitral Regurgitation
History of TAVR 2019
History of cardiac catheterization complicated by punctured pericardium
LUE Weakness and Pain
Left Upper Extremity Cephalic Vein Thrombosis on Peripheral Vascular Ultrasound from 09/26/24
Multilevel neural foraminal osseous encroachment, greatest on the left from C3-C7
Urinary Retention
Constipation
Compression Fractures on CT Imaging
Alzheimer's Dementia
Coronary Artery Calcification
Hypertension
Hyperlipidemia
History of Total knee arthroplasty
History of likely osteomyelitis of right fifth toe/surrounding cellulitis
History of MRSA
Plan:
A/w FTT, fall, found MRSA bacteremia
Significant azotemia-with underlying pulm HTN and possible prerenal with poor po intake
cr is up and so is BUN at 107 despite IVF challenge
UA with microhematuria, pyuria and bacteria+, no growth on cx
now he is hypoxic on O2
concern it could be cardiorenal, placed burden no sig UOP
recheck UA, U lytes, stop IVF
ok to give lasix since CXR worse
ok to check complements in setting of MRSA bacteremia
also check U eosinophils
abx changed to Dapto per ID and off Vanc
hb remains stable and no steroid use , CT on admit no hydro
BP stable
labs repeat today
d/w nursing and primary
d/w nephew-who stated pt wanted no aggressive measure from previous discussion
he likely not a candidate for ROUGH CARPENTER with multiple comorbidities-nephew understands
high risk encounter
-
-
Date of Service: October 02, 2024
CC / HPI / ROS
-
Chief Complaint:
Azotemia
Hyponatremia
History of Present Illness:
Sodium and azotemia worse at 107, cr up at 1.6
k normal 4..
Hemodynamically stable\\
hypoxic on NRB currently
Review of Systems:
Confused and unable to provide history
no fever
Appears chronically ill
Labs
-
Labs:
WBC 12.6 10^3/uL (4.8-10.8) H 10/02/24 07:05
RBC 3.11 10^6/uL (4.70-6.10) L 10/02/24 07:05
Hgb 10.3 g/dL (13.0-18.0) L 10/02/24 07:05
Hct 30.3 % (39.0-52.0) L 10/02/24 07:05
Plt Count 171 10^3/uL (130-400) D 10/02/24 07:05
eGFR 43.02 10/02/24 07:05
Phosphorus 3.4 mg/dl (2.5-4.5) 09/24/24 07:57
Ojg-G-Ikulrigfvmn Pept > 87430 pg/ml 09/26/24 04:14
Albumin 2.3 g/dl (3.5-5.0) L 09/28/24 13:18
Physical Exam
-
Vital Signs:
Vital Signs
Temp Pulse Resp BP Pulse Ox
98.1 F 71 18 119/77 99
10/02/24 07:00 10/02/24 11:33 10/02/24 11:33 10/02/24 11:33 10/02/24 11:33
Cardiovascular:: Regular rate and rhythm
Respiratory:: Bilateral: Coarse
Lung Excursion:: Abnormal
Abdomen:: Nontender and Soft
Extremity Edema:: None: Bilateral:
Burden Catheter: Yes
[2024-10-02 16:13] VITALS: BP 114/73
--- NOTE | 2024-10-02 16:40 | PTCARENOTE ---
Vegas was placed at 1315 today without difficulty, but no urine output 3 hours post insertion despite current bladder scan of 156 ml. Catheter balloon deflated, then catheter advanced and balloon reinflated with assist of second RN. Patient now with
bright red blood in Vegas tubing (approx 5 mL) and small amount blood from urinary meatus while balloon was deflated. No actual urine noted to be draining. Dr. Galloway notified.
[2024-10-02] MEDS: LIDOCAINE URO-JET 2% 1 SYRINGE TOPICAL ×2 (17:52→22:12)
[2024-10-02 18:08] LABS: Haptoglobin 197 mg/dL (30-200)
--- NOTE | 2024-10-02 18:32 | PTCARENOTE ---
Patient repeatedly removing oxygen and pulling Vegas catheter. Redirection per nursing staff and [facility] remote video monitoring ineffective. Dr. Galloway notified.
[2024-10-02 19:00] VITALS: BP 129/66
[2024-10-02 19:15] LABS: Blood Urea Nitrogen 111 mg/dl (9-20); Calcium 8.8 mg/dl (8.4-10.2); Carbon Dioxide 22 mmol/L (22-30); Chloride 108 mmol/L (98-107); Estimated Creatinine Clearance 22 ml/min; Glucose 114 mg/dl (70-99); Potassium 4.7 mmol/L (3.5-5.1); Sodium 138 mmol/L (135-145); eGFR 29.36
[2024-10-02 20:40] LABS: B.E. -4.7 mmol/L; HCO3 20.4 mmol/L (21-28); O2 Saturation % 80.2 % (94-98); PCO2 37 mmHg (35-48); pH 7.35 (7.35-7.45)
[2024-10-02 20:45] LABS: PO2 51 mmHg (83-108)
[2024-10-02 20:45] LABS: Glucose - Point of Care 134 mg/dl (70-99)
[2024-10-02 23:00] VITALS: BP 96/59
[2024-10-03] VITALS (9 sets, daily range): BP systolic 90–125; BP diastolic 61–99; BMI 20.6; BMI 18.6
--- NOTE | 2024-10-03 02:55 | W.PN.UPDATE ---
Update Note
Progress Note Update
Patient noted with hypoxia and inability to register pulse oximetry along with tachypnea on NRB. ABG done showing pO2 of 51. Placed High Flow 100% 50 L. Tolerating with saturation of 95%. Morphine IV PRN available. About 0200 rhythm changed to
afib with controlled rate below 100 but with bursts non sustained to 120s. Eliquis/ASA on hold due to hematuria so will attempt to control rate which may be difficult with bp <100 systolic. Will consider low dose pressor support if bp doesn't
improve.
[2024-10-03 06:06] LABS: Glucose - Point of Care 121 mg/dl (70-99)
[2024-10-03] MEDS: MIRALAX PO (07:25)
[2024-10-03 07:53] LABS: Hematocrit 25.8 % (39.0-52.0); Hemoglobin 8.9 g/dL (13.0-18.0); Mean Corp Hgb Conc. 34.5 g/dL (33.0-37.0); Mean Corpuscular Hgb 33.2 pg (27.0-31.0); Mean Corpuscular Volume 96.3 fL (80.0-94.0); Mean Platelet Volume 10.4 fL (7.4-10.4); Platelet Count 169 10^3/uL (130-400); Red Blood Cell Count 2.68 10^6/uL (4.70-6.10); Red Cell Dist. Width 13.1 % (11.5-14.5); White Blood Cell Count 17.4 10^3/uL (4.8-10.8)
--- NOTE | 2024-10-03 08:05 | PTCARENOTE ---
~20:02 Pt on nonrebreather with O2 88%. Pt responding to tactile and verbal stimuli. Notified SANDEEP Shen. SANDEEP assessed pt at bedside. New orders placed. Pt placed on high flow. Burden irrigated. Blood clots noted in burden bag. On-call
urologist Jose Lora called this chief writer. New orders placed.
~23:32 Pt stated first and last name.
CT scan completed. On-call urologist Geno called this chief writer. New orders placed.
~02:00 Heart monitor alarmed afib. EKG completed. Notified SANDEEP Shen.
Throughout night when pt laid flat to turn and clean up, pt's O2 dropped. HOB raised. Pt's O2 increased back 95-100. Notified SANDEEP Shen and updated Geno.
Updated Geno this AM. Pt peed when turning and cleaning pt. Small amount of blood drainage from urethra on diaper. Pt has hx of hernia repair. Swelling noted on lower right suprapubic area near old healed scar. Geno and Parul Shen updated.
Plan of care ongoing.
--- NOTE | 2024-10-03 08:10 | CONS.URO ---
Consultation
-
Date/Time Consultation Requested: 10/03
Date/Time Consultation Performed: 10/03
Requesting Provider: Nilesh
Performing Provider: Geno
Reason for Consultation: non-functioning Vegas catheter, NANCY
Medical History
History of Present Illness
83m admitted after a fall after significant functional decline noted over last 3-4 weeks.
Has had multiple falls - found by family lying in bathtub.
Patient notably confused at baseline (h/o Alzheimer's dementia).
Due to rising Cr, Nephrology requested catheter placement on 10/02 to accurately measure I/Os.
14Fr catheter placed by nursing staff, however no UOP noted >3 hrs.
Vegas catheter taken down, re-hubbed, and balloon re-inflated w/o success.
Catheter exchanged w/o success.
PVR 150 cc w/ catheter in place.
Removal of 14Fr and placement of 22Fr 3-way advised (no resistance or difficulty noted by nursing staff on insertion).
Frankly bloody output per catheter noted w/ inflow of irrigation fluid w/o outflow.
Urology recommended STAT CTAP w/o IV contrast => malpositioned catheter w/n penile urethra, balloon inflated distal to bulbar urethra, likely false passage suspected.
Catheter removal advised by Urology w/ observation of voiding status - voids x2 o/n.
Scheduled for urgent cystoscopy + complicated catheter placement + SPT insertion (possible) this AM.
Past Medical History
Past Medical History: Dementia (Alzheimer's dementia), Hypercholesterolemia, Valvular Disease (severe s/p TAVR, MVP w/ MR) and Other (pulmonary fibrosis)
Past Surgical History: Cardiac (cardiac surgery s/p perforation following EP procedure (2001)) and Orthopedic
Social History
Unable to obtain full social history at this time due to: Dementia
Tobacco: Non-smoker
Alcohol: None
Drug: None
Living: Alone
Employment: Retired
Family History
Family History: Unable to Obtain
Allergies/Home Medications
Allergies
Allergy/AdvReac Type Severity Reaction Status Date / Time
Penicillins Allergy Unknown Verified 09/23/24 12:24
Home Medications
�Medication �Instructions �Recorded �Confirmed �Type
aspirin 81 mg tablet,delayed 81 mg PO DAILY Blood Clot 07/24/23 09/23/24 History
release Prevention/Tx
cholecalciferol (vitamin D3) 25 25 mcg PO DAILY Supplement 07/24/23 09/23/24 History
mcg (1,000 unit) tablet (Vitamin
D3)
pravastatin 20 mg tablet 20 mg PO DAILY High Cholesterol 07/24/23 09/23/24 History
Prevagen 1 cap PO DAILY Supplement 09/23/24 09/23/24 History
therapeutic multivitamin 1 tab PO DAILY Supplement 09/23/24 09/23/24 History
Review of Systems
-
Unable to obtain full review of systems at this time due to: Dementia
History Source: Family and Physician
A 12 point Review of Systems was completed except as noted: Yes
Physical Exam
Vital Signs
Vital Signs
Temp Pulse Resp BP Pulse Ox
98.0 F 100 22 100/66 97
10/03/24 03:00 10/03/24 03:00 10/03/24 03:00 10/03/24 03:00 10/03/24 03:00
Lab / Testing Results
Laboratory Results
10/03/24 07:26
10/03/24 07:26
Physical Exam
General: Respiratory Distress and Other (cachectic)
HEENT: Normocephalic, Anicteric and Oxygen
Respiratory: Other (on high flow O2 mask)
Breast: N/A
GI: Soft, Non Tender, Non Distended and Other (no suprapubic distention)
Rectal: Deferred by Provider
Genito-urinary: Bloody Urine
Musculoskeletal: No Edema
Skin: Warm and Dry
Neuro: Other (confused, waxing and waning consciousness)
Hematologic/Lymphatic: No Lymphadenopathy
Psych: Apparent Dementia
Assessment / Plan
-
Urethral trauma w/ suspected false passage s/p Vegas catheter placement
NANCY
Cr 2.8 (steady rise noted)
CTAP w/o IV contrast => malpositioned Vegas catheter w/ balloon inflated in urethra (distal to prostate gland), bladder partially filled, no significant hydronephrosis bilaterally
Patient was scheduled for urgent cystoscopy/catheter placement/possible SP tube insertion this AM - in preop, noted to have poor O2 sats ranging 74-79% - evaluated by RT at bedside.
Due to concerns about tenuous respiratory status under IV sedation w/ likelihood of intubation in extremely high risk patient, surgical plan was put on hold.
Catheter insertion requested by Nephrology initially - risk/benefit of anesthesia + surgical intervention for urethral trauma in setting of patient's intermittent spontaneous voiding reviewed w/ POA.
Patient's POA (estrada Lo) was contacted as patient listed as DNR - current clinical situation described, nephew requested avoiding surgical intervention and risk of intubation per his wishes as POA.
- Cancel surgery this AM
- Volitional voiding (patient is voiding spontaneously and partially incontinent)
- CT imaging reviewed w/ POA
- Trend Cr per Nephrology
- No plans for surgical intervention by Urology per DNR status and wishes of POA
- Transfer to IMU due to poor respiratory status
D/w Anesthesiologist.
D/w Hospitalist.
D/w POA (Wally dorado)
Data Reviewed
-
Total Time Spent with Patient (in minutes): 75
CT Scan: Image personally visualized and interpreted, Report Reviewed by Me, Discussed with Physician and Discussed with Family
Lab Data: Labs Reviewed, Discussed with Physician and Discussed with Family
Old Records: Reviewed
--- NOTE | 2024-10-03 08:11 | PTCARENOTE ---
patient recieved from night shift supervisor on HFNC and cont POX. 100% 50L and sats high 90s. patient is drowsy, opens his eyes to verbal stimuli, non verbal. mitts to b/l wrists in place. OR scheduled this AM for uteroscopy. report given to OR nurse over the
phone. patient transported to OR by the bed and MD updated over the tiger text
[2024-10-03 08:22] LABS: Calcium 8.5 mg/dl (8.4-10.2); Carbon Dioxide 20 mmol/L (22-30); Chloride 109 mmol/L (98-107); Creatine Phosphokinase 79 U/L (55-170); Estimated Creatinine Clearance 19 ml/min; Glucose 107 mg/dl (70-99); Potassium 4.9 mmol/L (3.5-5.1); Sodium 141 mmol/L (135-145); eGFR 21.98
[2024-10-03 08:33] LABS: Blood Urea Nitrogen 125 mg/dl (9-20)
[2024-10-03] MEDS: LASIX 40 MG IV ×2 (09:28→14:10)
--- NOTE | 2024-10-03 11:05 | W.PN.NEPH.PH ---
Today's Communication / Plan
-
lasix 80mg BID, may change to gtt if needed
Assessment/Plan
-
IMP:
Azotemia
NANCY
mild yponatremia
MRSA Bacteremia with history of TAVR
Septic shock-resolved
Paranoid Behavior/Refusal of Care
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
very mild rhabdomyolysis-resolved
Anemia,
Thrombocytopenia
pulmonary fibrosis
MVP with Moderate Mitral Regurgitation
History of TAVR 2019
History of cardiac catheterization complicated by punctured pericardium
LUE Weakness and Pain
Left Upper Extremity Cephalic Vein Thrombosis on Peripheral Vascular Ultrasound from 09/26/24
Multilevel neural foraminal osseous encroachment, greatest on the left from C3-C7
Urinary Retention
Constipation
Compression Fractures on CT Imaging
Alzheimer's Dementia
Coronary Artery Calcification
Hypertension
Hyperlipidemia
History of Total knee arthroplasty
History of likely osteomyelitis of right fifth toe/surrounding cellulitis
History of MRSA
Plan:
A/w FTT, fall, found MRSA bacteremia
Significant azotemia-with underlying pulm HTN and possible prerenal with poor po intake
cr is up 2.8 and so is BUN at 120s now
pending complements in setting of MRSA bacteremia, also check U eosinophils
UA with microhematuria, pyuria and bacteria+, no growth on cx
now he is on high flow O2, CXR and CT abd noted fluid overload , pleural effusion
concern it could be cardiorenal, difficulty to replace burden, monitor off burden-appt input
increase lasix to 80mg BID, may need lasix gtt if no response
reviewed with THOR Lo phone in detail and agreed that he is not a candidate for HD
will try with diuretics as much as possible but seem to have poor prognosis-family understands
abx changed to Dapto per ID and off Vanc 10/02
hb decreasing, monitor
BP soft
labs repeat today
d/w nursing and primary
d/w nephew-who stated pt wanted no aggressive measure from previous discussion
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
high risk encounter
-
-
Date of Service: October 03, 2024
CC / HPI / ROS
-
Chief Complaint:
Azotemia
Hyponatremia
History of Present Illness:
Sodium and azotemia worse at 125, cr up at 2.8
k normal 4.9
BP soft
hypoxic on high flow O2, transferred to IMU this am
reportedly jenise was in urethra, tried to reinsert by but not successful, due to hypoxia intervention limited
Review of Systems:
comfortable but not awake during visit
able to void once small amount
NPO with asp risk
Labs
-
Labs:
WBC 17.4 10^3/uL (4.8-10.8) H 10/03/24 07:26
RBC 2.68 10^6/uL (4.70-6.10) L 10/03/24 07:26
Hgb 8.9 g/dL (13.0-18.0) L 10/03/24 07:26
Hct 25.8 % (39.0-52.0) L 10/03/24 07:26
Plt Count 169 10^3/uL (130-400) 10/03/24 07:26
Sodium 141 mmol/L (135-145) 10/03/24 07:26
Potassium 4.9 mmol/L (3.5-5.1) 10/03/24 07:26
Chloride 109 mmol/L (98-107) H 10/03/24 07:26
Carbon Dioxide 20 mmol/L (22-30) L 10/03/24 07:26
BUN 125 mg/dl (9-20) H* 10/03/24 07:26
Creatinine 2.8 mg/dL (0.7-1.3) H 10/03/24 07:26
eGFR 21.98 10/03/24 07:26
Glucose 107 mg/dl (70-99) H 10/03/24 07:26
Calcium 8.5 mg/dl (8.4-10.2) 10/03/24 07:26
Phosphorus 3.4 mg/dl (2.5-4.5) 09/24/24 07:57
Pyp-U-Gbwqepmzuum Pept > 80844 pg/ml 09/26/24 04:14
Albumin 2.3 g/dl (3.5-5.0) L 09/28/24 13:18
Physical Exam
-
Vital Signs:
Vital Signs
Temp Pulse Resp BP Pulse Ox
98.0 F 100 22 100/66 97
10/03/24 03:00 10/03/24 03:00 10/03/24 03:00 10/03/24 03:00 10/03/24 10:32
Cardiovascular:: Regular rate and rhythm (JVD noted)
Respiratory:: Bilateral: Coarse
Lung Excursion:: Abnormal
Abdomen:: Nontender and Soft
Extremity Edema:: None: Bilateral:
Burden Catheter: No
--- NOTE | 2024-10-03 12:35 | W.PN.HOSP.TC ---
Today's Communication/Plan
-
see note
Assessment / Plan
Assessment / Plan
CT Chest/abd/pel W Iv Cont
1. Trace left pleural effusion.
2. Mild T10 and T12 compression fractures, both new from 04/05/2023 and likely acute/subacute. Recommend correlation for any point tenderness in this region.
3. No other significant acute abnormality identified in the chest, abdomen or pelvis, as described above. Stable changes of chronic interstitial lung disease.
4. Moderate diffuse colonic stool burden may reflect constipation.'
CTA of the chest with intravenous contrast
1. No evidence of pulmonary embolism or thoracic aortic dissection.
2. Trace left pleural effusion, new compared to 09/23/2024.
3. Changes of moderate interstitial fibrosis, unchanged compared to multiple prior studies, including 04/05/2023.
4. Mild dilation of the ascending thoracic aorta, which measures 3.7 cm in greatest orthogonal dimension. No significant change compared to prior studies, including 04/05/2023.
5. Stable prominence of the main pulmonary trunk, suggestive of pulmonary arterial hypertension in the correct clinical setting.'
Noncontrast CT examination of the abdomen and pelvis
1. No evidence of abdominal pelvic abscess or other acute pathology.
2. Small bubbles of air within the right anterior lower abdominal wall, likely resulting from subcutaneous injections. No body wall abscess.
3. Small left pleural effusion, also seen on CTA of the chest. Bibasilar interstitial fibrosis.'
Echocardiogram
Normal left ventricular size and systolic function without regional wall motion abnormalities. LVEF 60-65%.
Right ventricle is mildly dilated with normal systolic function. Biatrial enlargement.
Bileaflet mitral valve prolapse with moderate mitral regurgitation. Well-seated TAVR with normal function (peak/mean 19/8 mmHg).
Mild to moderate tricuspid regurgitation. Estimated PASP 44 mmHg. Interatrial septum bowed to the right consistent with elevated left atrial pressure.
Chest x-ray 09/26/2024
left lower lobe pneumonia, nondisplaced fracture through the distal right clavicle

1. MRSA bacteremia
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
Septic shock - resolved
Acute hypoxic resp insufficiency - resolved
-Was on pressors and oxygen in ICU, now resolved
-Blood culture on 09/26 and 09/27 grew MRSA. Culture from 09/28 has been negative, continue follow
-Sacral wound pictures reviewed, no deep skin break.
-TTE did not show any valvular vegetation. As patient not a surgical candidate and increased risk, cardio recommended against ALMA
-Patient clinically will be treated as possible prosthetic valve endocarditis at this point. Right arm PICC line to be removed and changed to peripheral line. Will replace PICC line once bacterial clearance confirmed.
-Due to developing renal failure patient vancomycin changed to daptomycin. of note all vancomycin level checks were within normal limit.
2. Dementia with behavioral problems
Acute toxic metabolic encephalopathy
-Psychiatry evaluated patient and have appreciated
-At this point patient remains somnolent during daytime, awake during the night. Starting on Zyprexa 2 and half milligram at bedtime to help the situation.
-MRI brain on monday ruled out any septic emboli to brain
3. NANCY - worsening
Metabolic acidosis
-Creatinine unfortunately continues to up-trend and 2.8 today
-Burden catheter was attempted to be placed x 2, no good urine drainage.
-Follow-up CT abdomen pelvis showing placement in penile urethra, Burden was removed.
-A cystoscopic attempt to examine urethra and placed Burden was planned although patient too hypoxic in the morning today and procedure was aborted
-Discussed with nephrology and starting patient on empiric IV Lasix 40 g twice daily
-Requested RN to do every 3/every 4 hours bladder checks
4. 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
Acute hypoxic resp failure
-Mild RV Dilation on September 2024 Echocardiogram
-Chest x-ray reviewed and may have chronic changes of pulmonary fibrosis
-Worsening hypoxia and patient on high flow oxygen, transferred to IMU
-Repeat chest x-ray showing changes of pulmonary edema vs Pneumonia on underlying pulmonary fibrosis
-Adding cefepime 2 g every 24h / flagyl to cover gram-negative/anaerobes. Patient allergic to penicillin
5. Mild rhabdomyolysis
History of mechanical fall
-Resolved at this point
6. Sacral stage II pressure injury
-Wound care nurse on board, wound pictures reviewed
-reported blood in underwear/toilet at admission
6. Left cephalic vein thrombus
-Superficial venous thrombus and ideally does not require to be treated
-Eliquis being held for now with hbg drifting down slowly.
7. Mild thrombocytopenia
-Secondary to MRSA bacteremia likely, monitor
8. Parox afib
-Eliquis on hold with downtrending hemoglobin
-Currently patient heart rate in 90-110 range
-BP limiting factor to start BB/CCB
Biatrial Enlargement
MVP with Moderate Mitral Regurgitation
Elevated left atrial pressure
History of TAVR
History of cardiac catheterization complicated by punctured pericardium
Coronary artery calcification, on aspirin and pravastatin
Multilevel neural foraminal osseous encroachment, greatest on the left from C3-C7, as per radiologist's report from CT of the Cervical Spine
Urinary Retention -Was on Flomax outpatient, but PCP had stopped it (as per nurse on 09/27/24)
Macrocytic Anemia
Hematuria on Urinalysis
Coronary Artery Calcification
Essential Hypertension
Hyperlipidemia
BPH
History of Total knee arthroplasty
History of likely osteomyelitis of right fifth toe/surrounding cellulitis
Underweight
DVT Prophylaxis: eliquis
Code Status: DNR
10/03 goal of care discussion held with patient nephew over the phone. I will clarify if patient renal failure continue to worsening patient likely not to survive. Next 24 to 48 hours will be critical for patient, nephew understands and all
questions answered.
Total critical care time 40 mins . Total critical care time documented does not include time spent on separately billed procedures or the services of residents, students, nurses or physician assistants. I personally saw and examined the patient. I
have reviewed all diagnostic interpretations and treatment plans as written. I was present for the aguilera portions of any procedures performed and the inclusive time noted in any critical care statement. Critical care time includes patient management
by me, time spent at the patients bedside, time to review lab and imaging results, discussing patient care, documentation in the medical record, and time spent with the family or caregiver.
Anticipated Discharge: > 48 hours
Subjective/Interval History
-
Date of Service: October 03, 2024
Patient continued to get progressively hypoxic
Required to be placed on high flow oxygen and night
Patient was attempted to have a cystoscopic burden placement and did not help
Objective Data
-
Labs:
Laboratory Results
10/03/24
07:26
WBC 17.4 H
Hgb 8.9 L
Hct 25.8 L
Plt Count 169
Sodium 141
Potassium 4.9
Chloride 109 H
Carbon Dioxide 20 L
BUN 125 H*
Creatinine 2.8 H
Glucose 107 H
Calcium 8.5
Vital Signs:
Vital Signs
Temp Pulse Resp BP Pulse Ox
98.0 F 100 22 100/66 97
10/03/24 03:00 10/03/24 03:00 10/03/24 03:00 10/03/24 03:00 10/03/24 10:32
I&O
10/02/24 10/03/24 10/04/24
06:59 06:59 06:59
Intake Total 630 / 630
Balance 630 / 630
Review of Systems
-
Unable to obtain full review of systems at this time due to: Dementia
Physical Exam
-
General: Comfortable
HEENT: Oxygen (Highflow 90%)
Respiratory: Crackles
Cardiac: S1/S2, Irregular Rhythm and Tachycardic; Negative Murmur or Rub
GI: Soft, Nontender and Nondistended
Musculoskeletal: No Edema
Neuro: Awake and No Motor Deficits; Negative Alert or Oriented
Psych: Calm
[2024-10-03 13:40] LABS: Complement C3 45 mg/dl (88-165)
--- NOTE | 2024-10-03 14:22 | PTOTSP ---
Reviewed chart and events noted. Pt was to have cystoscopic procedure but was too hypoxic and pt was transferred to IMU. Physical therapy orders were not continued upon transfer. Will need new orders for PT and OT when stable to resume therapy
activities.
[2024-10-03] MEDS: MAXIPIME 2000 MG IV (14:31)
[2024-10-03] MEDS: STERILE WATER FOR INJECTION 10 ML IV (14:32)
[2024-10-03] MEDS: FLAGYL 250 MG 50 IV ×2 (14:45→22:06)
[2024-10-03 17:00] LABS: Glucose - Point of Care 127 mg/dl (70-99)
[2024-10-03] MEDS: LASIX 80 MG IV (17:01)
[2024-10-03] MEDS: LASIX 50 IV (17:51)
--- NOTE | 2024-10-03 19:53 | PTCARENOTE ---
day shift note. recieved pt from or , procedure cancelled d/t decreased o2 sats. recieved pt on hi flow 50 liters/100 percent with sats in high 90s. pt drowsy, awakens briefly to voice. bladder scanned multiple times due to minimal urine output with
max scan of 118. fadi cath placed for accuratemeasurement. lasix iv administered per order and drip started.
--- NOTE | 2024-10-03 21:34 | PTCARENOTE ---
Assumed care of patient from previous RN. Patient is confused and drowsy. On high flow nasal cannula 75 liters/100%, patient did desat into 70s and nonrebreather was put on and patient sats came back up into 90s. Nonrebreather is off now and still
sating in 90s. patient has confused conversation. Patient has condom cath draining bloody urine. Patient is NPO. NSR on monitor. Patient resting in bed with call davis in reach.
[2024-10-03 23:58] LABS: Glucose - Point of Care 105 mg/dl (70-99)
[2024-10-04] VITALS (13 sets, daily range): BP systolic 87–126; BP diastolic 65–90; BMI 18.6
[2024-10-04 05:43] LABS: Hematocrit 28.7 % (39.0-52.0); Hemoglobin 9.3 g/dL (13.0-18.0); Mean Corp Hgb Conc. 32.4 g/dL (33.0-37.0); Mean Corpuscular Hgb 32.6 pg (27.0-31.0); Mean Corpuscular Volume 100.7 fL (80.0-94.0); Mean Platelet Volume 9.8 fL (7.4-10.4); Platelet Count 203 10^3/uL (130-400); Red Blood Cell Count 2.85 10^6/uL (4.70-6.10); Red Cell Dist. Width 13.2 % (11.5-14.5); White Blood Cell Count 12.6 10^3/uL (4.8-10.8)
[2024-10-04] MEDS: FLAGYL 250 MG 50 IV ×2 (06:00→15:05)
[2024-10-04 06:07] LABS: Calcium 8.7 mg/dl (8.4-10.2); Carbon Dioxide 17 mmol/L (22-30); Chloride 112 mmol/L (98-107); Estimated Creatinine Clearance 15 ml/min; Glucose 105 mg/dl (70-99); Sodium 143 mmol/L (135-145); eGFR 18.05
[2024-10-04 06:13] LABS: Blood Urea Nitrogen 149 mg/dl (9-20)
[2024-10-04] MEDS: MIRALAX PO (08:17)
--- NOTE | 2024-10-04 10:16 | W.PN.ID1 ---
Date of Service
Date of Service: October 04, 2024
Today's Communication
Goals of care could be considered - patient with failure to thrive, cachexia, dementia at baseline now with progressive multisystem organ failure
continue current antibiotics
Assessment / Plan
Acute Hypoxemia Respiratory Failure - pulmonary fibrosis + PNA
Fever
- improved
Bacteremia with MRSA
- sustained
- hx TAVR
Leukocytosis
- improved
NANCY
-Abrupt increase today
Elevated BNP
Elevated ESR/CRP
HTN
Alzheimer's dementia
FTT and cachexia
Recommendations:
Acute hypoxemic respiratory failure and possible hospital acquired pneumonia
- CXR with fibrosis and possible new infiltrate
- sputum culture if able to obtain one
- agree with cefepime
- fine to continue metronidazole
Blood cultures positive for MRSA, concerning given presence of TAVR.
c/w daptomycin. Hold statin while on daptomycin.
CK normal, note recent elevation earlier this admission - repeat monday
Follow repeat blood cultures.
Family has declined ALMA.
Continue to follow clinically.
Goals of care could be considered - patient with failure to thrive, cachexia, dementia at baseline now with progressive multisystem organ failure
����������������������������������������������������������
Chief Complaint
-: Leukocytosis and Bacteremia (MRSA)
Subjective / Review of Systems
afebrile
bp stable
required high flow NC + NRB overnight
Vital Signs / Physical Exam
Vital Signs
Vital Signs
Temp Pulse Resp BP Pulse Ox
98.3 F 76 23 110/77 94
10/04/24 07:15 10/04/24 04:00 10/04/24 04:00 10/04/24 04:00 10/04/24 08:20
Physical Exam
Constitutional: No Acute Distress, Chronically Ill and Cachetic
Cardiovascular: Regular Rate and S1/S2; Negative Murmur or Rub
Pulmonary: Clear and Symmetric; Negative Wheezes or Rales
Gastrointestinal: Soft, Non Tender, Non Distended and Normal Bowel Sounds
Skin: Warm and Dry; Negative Rash or Jaundice
Objective Data
Lab Data
Lab Results
10/04/24 04:54
10/04/24 04:54
ESR 48 mm/hour (0-20) H 09/28/24 04:25
Estimated Creat Clear 15 ml/min 10/04/24 04:54
Lactic Acid 1.0 mmol/L (0.7-2.0) 09/26/24 04:14
Total Bilirubin 0.5 mg/dl (0.2-1.3) 09/28/24 13:18
AST 50 U/L (17-59) 09/28/24 13:18
ALT 32 U/L (0-50) 09/28/24 13:18
Alkaline Phosphatase 76 U/L (38-126) 09/28/24 13:18
C-Reactive Protein 21.40 mg/L (0.0-10.00) H 09/28/24 04:25
Most recent labs reviewed.
Micro Results:
09/30/24 07:42 Blood Culture - Preliminary
Blood/Venous No Growth in 4 days- Final report to follow
09/28/24 13:31 Blood Culture - Final
Blood/Venous No Growth - Final Report
09/26/24 04:14 Blood Culture - Final
Blood/Venous Staph aureus MRSA
Gram Stain - Final
09/27/24 14:25 Blood Culture - Preliminary
Blood/Venous Staph aureus MRSA
Gram Stain - Preliminary
09/26/24 07:53 Blood Culture - Final
Blood/Venous Staph aureus MRSA
Gram Stain - Final
09/27/24 04:24 Urine Culture - Final
Urine NO GROWTH
09/26/24 11:18 Influenza Types A & B ([facility]) - Final
Nasal Swab Negative for Influenza A & B, NAAT
Negative results must be combined with clinical observations
and patient history.
Nucleic Acid Amplification test (NAAT)performed on the
[employer] platform.
09/24/24 06:26 MRSA Screen - Final
Nose No Methicillin Resistant Staphylococcus aureus isolated.
Imaging:
09/26/2024 CXR chest (portable): Mild cardiomegaly noted. Median sternotomy wires and TAVR prostatic are unchanged. Moderate reticular interstitial thickening is seen bilaterally. Hazy opacity at the left lung base noted. Please see full
dictation for additional detail.
09/26/2024 CT abdomen/pelvis without contrast: No evidence of abdominal pelvic abscess or other acute pathology. Small bubbles of air within the right anterior lower abdominal wall likely resulting from subcutaneous injections. No body wall
abscess.
09/26/2024 CT chest: No evidence of PE or thoracic aortic dissection. Trace left pleural effusion. Changes of moderate interstitial fibrosis noted. Please see full dictation for additional detail.
[2024-10-04] MEDS: LASIX 50 IV (10:54)
--- NOTE | 2024-10-04 11:11 | W.PN.HOSP.TC ---
Addendum entered and electronically signed by Willem Galloway MD 10/04/24 14:17:
10/04 repeat C discussion held and nephew wants to wait another day. He understands patient may still not improve and if clinically deteriorates overnight may require transition to comfort care. Some family member planning to visit patient and
flying from different state.
Original Note:
Today's Communication/Plan
-
see note
Assessment / Plan
Assessment / Plan
CT Chest/abd/pel W Iv Cont
1. Trace left pleural effusion.
2. Mild T10 and T12 compression fractures, both new from 04/05/2023 and likely acute/subacute. Recommend correlation for any point tenderness in this region.
3. No other significant acute abnormality identified in the chest, abdomen or pelvis, as described above. Stable changes of chronic interstitial lung disease.
4. Moderate diffuse colonic stool burden may reflect constipation.'
CTA of the chest with intravenous contrast
1. No evidence of pulmonary embolism or thoracic aortic dissection.
2. Trace left pleural effusion, new compared to 09/23/2024.
3. Changes of moderate interstitial fibrosis, unchanged compared to multiple prior studies, including 04/05/2023.
4. Mild dilation of the ascending thoracic aorta, which measures 3.7 cm in greatest orthogonal dimension. No significant change compared to prior studies, including 04/05/2023.
5. Stable prominence of the main pulmonary trunk, suggestive of pulmonary arterial hypertension in the correct clinical setting.'
Noncontrast CT examination of the abdomen and pelvis
1. No evidence of abdominal pelvic abscess or other acute pathology.
2. Small bubbles of air within the right anterior lower abdominal wall, likely resulting from subcutaneous injections. No body wall abscess.
3. Small left pleural effusion, also seen on CTA of the chest. Bibasilar interstitial fibrosis.'
Echocardiogram
Normal left ventricular size and systolic function without regional wall motion abnormalities. LVEF 60-65%.
Right ventricle is mildly dilated with normal systolic function. Biatrial enlargement.
Bileaflet mitral valve prolapse with moderate mitral regurgitation. Well-seated TAVR with normal function (peak/mean 19/8 mmHg).
Mild to moderate tricuspid regurgitation. Estimated PASP 44 mmHg. Interatrial septum bowed to the right consistent with elevated left atrial pressure.
Chest x-ray 09/26/2024
left lower lobe pneumonia, nondisplaced fracture through the distal right clavicle

1. MRSA bacteremia
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
Septic shock - resolved
Acute hypoxic resp insufficiency - resolved
-Was on pressors and oxygen in ICU, now resolved
-Blood culture on 09/26 and 09/27 grew MRSA. Culture from 09/28 has been negative, continue follow
-Sacral wound pictures reviewed, no deep skin break.
-TTE did not show any valvular vegetation. As patient not a surgical candidate and increased risk, cardio recommended against ALMA
-Patient clinically will be treated as possible prosthetic valve endocarditis at this point. Right arm PICC line to be removed and changed to peripheral line. Will replace PICC line once bacterial clearance confirmed.
-Due to developing renal failure patient vancomycin changed to daptomycin. of note all vancomycin level checks were within normal limit.
2. Dementia with behavioral problems
Acute toxic metabolic encephalopathy
-Psychiatry evaluated patient and have appreciated
-At this point patient remains somnolent during daytime, awake during the night. Starting on Zyprexa 2 and half milligram at bedtime to help the situation.
-MRI brain on monday ruled out any septic emboli to brain
3. NANCY - worsening
AG Metabolic acidosis
-Creatinine unfortunately continues to up-trend and 2.8 today
-Vegas catheter was attempted to be placed x 2, no good urine drainage.
-Follow-up CT abdomen pelvis showing placement in penile urethra, Vegas was removed.
-A cystoscopic attempt to examine urethra and placed Vegas was planned although patient too hypoxic in the morning today and procedure was aborted
-Patient started on Lasix drip yesterday, 250ml UOP only. CR 3.3 today
-Requested RN to do every 3/every 4 hours bladder checks
4. 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
Acute hypoxic resp failure
-Mild RV Dilation on September 2024 Echocardiogram
-Chest x-ray reviewed and may have chronic changes of pulmonary fibrosis
-Repeat chest x-ray showing changes of pulmonary edema vs Pneumonia on underlying pulmonary fibrosis
-Added cefepime 2 g every 24h / flagyl to cover gram-negative/anaerobes. Patient allergic to penicillin
-O2 requirement remains high with patient remains on high flow, currently on 80% fio2
5. Mild rhabdomyolysis
History of mechanical fall
-Resolved at this point
6. Sacral stage II pressure injury
-Wound care nurse on board, wound pictures reviewed
-reported blood in underwear/toilet at admission
6. Left cephalic vein thrombus
-Superficial venous thrombus and ideally does not require to be treated
-Eliquis being held for now with hbg drifting down slowly.
7. Mild thrombocytopenia
-Secondary to MRSA bacteremia likely, monitor
8. Parox afib
-Eliquis on hold with downtrending hemoglobin
-HR improved again in 70-70 range today
-BP limiting factor to start BB/CCB
Biatrial Enlargement
MVP with Moderate Mitral Regurgitation
Elevated left atrial pressure
History of TAVR
History of cardiac catheterization complicated by punctured pericardium
Coronary artery calcification, on aspirin and pravastatin
Multilevel neural foraminal osseous encroachment, greatest on the left from C3-C7, as per radiologist's report from CT of the Cervical Spine
Urinary Retention -Was on Flomax outpatient, but PCP had stopped it (as per nurse on 09/27/24)
Macrocytic Anemia
Hematuria on Urinalysis
Coronary Artery Calcification
Essential Hypertension
Hyperlipidemia
BPH
History of Total knee arthroplasty
History of likely osteomyelitis of right fifth toe/surrounding cellulitis
Underweight
DVT Prophylaxis: eliquis
Code Status: DNR
10/03 goal of care discussion held with patient nephew over the phone. I will clarify if patient renal failure continue to worsening patient likely not to survive. Next 24 to 48 hours will be critical for patient, nephew understands and all
questions answered.
10/04 Despite being on lasix drip patient does not have much urine output - poor prognostic sign and further metabolic derangments to follow. Contacted nephew in morning - went through , will try again to discuss GOC
Total critical care time 38 mins . Total critical care time documented does not include time spent on separately billed procedures or the services of residents, students, nurses or physician assistants. I personally saw and examined the patient. I
have reviewed all diagnostic interpretations and treatment plans as written. I was present for the [place] portions of any procedures performed and the inclusive time noted in any critical care statement. Critical care time includes patient management
by me, time spent at the patients bedside, time to review lab and imaging results, discussing patient care, documentation in the medical record, and time spent with the family or caregiver.
Anticipated Discharge: > 48 hours
Subjective/Interval History
-
Date of Service: October 04, 2024
remains pleasantly confused
not much urine output on lasix drip
afebrile in night
no other acute events reported
Objective Data
-
Labs:
Laboratory Results
10/04/24
04:54
WBC 12.6 H
Hgb 9.3 L
Hct 28.7 L
Plt Count 203 D
Sodium 143
Potassium 5.0
Chloride 112 H
Carbon Dioxide 17 L
BUN 149 H*
Creatinine 3.3 H
Glucose 105 H
Calcium 8.7
Vital Signs:
Vital Signs
Temp Pulse Resp BP Pulse Ox
98.3 F 76 23 110/77 94
10/04/24 07:15 10/04/24 04:00 10/04/24 04:00 10/04/24 04:00 10/04/24 08:20
I&O
10/03/24 10/04/24 10/05/24
06:59 06:59 06:59
Output Total 250 / 250
Balance -250 / -250
Review of Systems
-
Unable to obtain full review of systems at this time due to: Dementia and Acuity
Physical Exam
-
General: Comfortable
HEENT: Oxygen (Highflow 80%)
Respiratory: Crackles
Cardiac: S1/S2, Irregular Rhythm and Tachycardic; Negative Murmur or Rub
GI: Soft, Nontender and Nondistended
Musculoskeletal: No Edema
Neuro: Awake and No Motor Deficits; Negative Alert or Oriented
Psych: Calm
--- NOTE | 2024-10-04 11:44 | W.PN.NEPH.PH ---
Today's Communication / Plan
-
suggest comfort care
remains on lasix gtt
Assessment/Plan
-
IMP:
Azotemia
NANCY
mild yponatremia
MRSA Bacteremia with history of TAVR
Septic shock-resolved
Paranoid Behavior/Refusal of Care
Frequent Falls CONSULTING SME
very mild rhabdomyolysis-resolved
Anemia,
Thrombocytopenia
pulmonary fibrosis
MVP with Moderate Mitral Regurgitation
History of TAVR 2019
History of cardiac catheterization complicated by punctured pericardium
LUE Weakness and Pain
Left Upper Extremity Cephalic Vein Thrombosis on Peripheral Vascular Ultrasound from 09/26/24
Multilevel neural foraminal osseous encroachment, greatest on the left from C3-C7
Urinary Retention
Constipation
Compression Fractures on CT Imaging
Alzheimer's Dementia
Coronary Artery Calcification
Hypertension
Hyperlipidemia
History of Total knee arthroplasty
History of likely osteomyelitis of right fifth toe/surrounding cellulitis
History of MRSA
Plan:
A/w FTT, fall, found MRSA bacteremia
Significant azotemia-with underlying pulm HTN and possible prerenal with poor po intake
cr is up 3.3 and so is BUN at 149s now
low complements in setting of MRSA bacteremia
now he is on high flow O2, CXR and CT abd noted fluid overload , pleural effusion
concern it could be cardiorenal, difficulty to replace burden, monitor off burden-appt input
on lasix gtt but UOP only 250cc so far
on 10/03 reviewed with THOR castro in detail and agreed that he is not a candidate for HD
I think it is time to consider hospice and comfort care
d/w nursing and primary
-
-
Date of Service: October 04, 2024
CC / HPI / ROS
-
Chief Complaint:
Azotemia
Hyponatremia
History of Present Illness:
Sodium and azotemia worse at 149 cr up at 3.3
k normal 5, bicarb low 17
BP soft
hb 9.3 no change
hypoxic on high flow O2
condom catheter draining dark urine
Review of Systems:
confused, not responding
arousable
Labs
-
Labs:
WBC 12.6 10^3/uL (4.8-10.8) H 10/04/24 04:54
RBC 2.85 10^6/uL (4.70-6.10) L 10/04/24 04:54
Hgb 9.3 g/dL (13.0-18.0) L 10/04/24 04:54
Hct 28.7 % (39.0-52.0) L 10/04/24 04:54
Plt Count 203 10^3/uL (130-400) D 10/04/24 04:54
Sodium 143 mmol/L (135-145) 10/04/24 04:54
Potassium 5.0 mmol/L (3.5-5.1) 10/04/24 04:54
Chloride 112 mmol/L (98-107) H 10/04/24 04:54
Carbon Dioxide 17 mmol/L (22-30) L 10/04/24 04:54
BUN 149 mg/dl (9-20) H* 10/04/24 04:54
Creatinine 3.3 mg/dL (0.7-1.3) H 10/04/24 04:54
eGFR 18.05 10/04/24 04:54
Glucose 105 mg/dl (70-99) H 10/04/24 04:54
Calcium 8.7 mg/dl (8.4-10.2) 10/04/24 04:54
Phosphorus 3.4 mg/dl (2.5-4.5) 09/24/24 07:57
Ycu-Z-Bxgoqvufjfy Pept > 39572 pg/ml 09/26/24 04:14
Albumin 2.3 g/dl (3.5-5.0) L 09/28/24 13:18
Physical Exam
-
Vital Signs:
Vital Signs
Temp Pulse Resp BP Pulse Ox
98.3 F 76 23 110/77 94
10/04/24 07:15 10/04/24 04:00 10/04/24 04:00 10/04/24 04:00 10/04/24 08:20
Cardiovascular:: Regular rate and rhythm (tachy)
Respiratory:: Bilateral: Coarse
Lung Excursion:: Abnormal
Abdomen:: Nontender and Soft
Extremity Edema:: None: Bilateral:
Burden Catheter: No
--- NOTE | 2024-10-04 12:20 | W.PN.UPDATE ---
Update Note
Progress Note Update
ARF - progressing
Urethral trauma and false passage from malpositioned catheter (noted on CT imaging - removed)
Acute hypoxic respiratory failure
Decision made by POA not to proceed w/ urgent cystoscopy/catheter placement/possible SPT due to respiratory status and DNR on advance directive on 10/03 - surgery cancelled.
Comfort measures vs. hospice being considered.
Urology signing off, please call w/ questions.
--- NOTE | 2024-10-04 13:30 | PTCARENOTE ---
Patient confused, drowsy. Hiflow, sats 94%, desats significantly and needs NRB to recover if patient pulls off O2. Heart rhythm NSR and afib at times. MD aware. Patients nephew updated. Bladder scan 191ml. Bed alarm on for safety. Will continue to
monitor.
[2024-10-04] MEDS: STERILE WATER FOR INJECTION 10 ML IV (14:08)
[2024-10-04] MEDS: CUBICIN 12 MG IV (14:08)
[2024-10-04] MEDS: MAXIPIME 2000 MG IV (14:08)
--- NOTE | 2024-10-04 16:05 | CM ---
Patient who is s/p mechanical fall at home, Hx dementia. Hi flow O2. Receiving IV Abx, IV Lasix. Seen by Wound care nurse. PT/OT; recommend skilled rehab. Per nursing; confused.
SNF referrals reviewed; [facility] and [facility] expressed interest.
Per MD notes; GOC discussions.
CM continuing to follow.
Plan TBD.
[2024-10-04 17:49] LABS: Glucose - Point of Care 130 mg/dl (70-99)
[2024-10-04] MEDS: FLAGYL 500 MG 100 IV (21:54)
--- NOTE | 2024-10-04 22:57 | PTCARENOTE ---
Patient confused and orientated to self. On High flow 75L at 100% sating in 90s. Patient desats into 70s at times and if he pulls off high flow, NRB to recover at the bedside. NSR on monitor. Lasix drip at 2ml/hr. Bladder scanned 120. patient
resting in bed with call davis in reach.
[2024-10-05] VITALS (24 sets, daily range): BP systolic 78–143; BP diastolic 61–117; BMI 18.4
[2024-10-05] MEDS: LASIX 50 IV (01:26)
[2024-10-05 01:57] LABS: Alpha 1 Globulin 0.45 g/dL (0.19-0.46); Alpha 2 Globulin 0.76 g/dL (0.48-1.05); Free Kappa Light Chains,Quant 108.66 mg/L (3.30-19.40); Free Lambda Light Chains,Quant 84.25 mg/L (5.71-26.30); IgA 482 mg/dL (68-408); IgG 1029 mg/dL (768-1632); IgM 285 mg/dL (35-263); Immunofixation Electrophoresis IFE Done; Kappa/Lambda Fr Light Ratio 1.29 (0.26-1.65); Total Protein-Electrophoresis 5.5 g/dL (6.3-8.2)
[2024-10-05 02:09] LABS: Glucose - Point of Care 107 mg/dl (70-99)
[2024-10-05 04:36] LABS: Hematocrit 28.6 % (39.0-52.0); Hemoglobin 9.3 g/dL (13.0-18.0); Mean Corp Hgb Conc. 32.5 g/dL (33.0-37.0); Mean Corpuscular Hgb 32.7 pg (27.0-31.0); Mean Corpuscular Volume 100.7 fL (80.0-94.0); Mean Platelet Volume 10.9 fL (7.4-10.4); Platelet Count 227 10^3/uL (130-400); Red Blood Cell Count 2.84 10^6/uL (4.70-6.10); Red Cell Dist. Width 13.3 % (11.5-14.5); White Blood Cell Count 12.4 10^3/uL (4.8-10.8)
[2024-10-05 05:08] LABS: Calcium 8.5 mg/dl (8.4-10.2); Carbon Dioxide 20 mmol/L (22-30); Chloride 113 mmol/L (98-107); Estimated Creatinine Clearance 17 ml/min; Glucose 103 mg/dl (70-99); Sodium 146 mmol/L (135-145); eGFR 21.07
[2024-10-05 05:54] LABS: Blood Urea Nitrogen 172 mg/dl (9-20)
[2024-10-05] MEDS: MIRALAX PO (07:31)
--- NOTE | 2024-10-05 08:15 | PTCARENOTE ---
Patient received from night coordinator. Patient resting comfortably in bed. AAO but drowsy, VSS at this time. No events noted overnight. No complaints of pain at this time. Patient is currently on Highflow N/C 50L @ 70%, tolerating well. Weaning as
tolerated. Lasix gtt @ 2ml/hr, external catheter in placec. No test scheduled for today. Call davis in reach.
--- NOTE | 2024-10-05 09:35 | W.PN.ID1 ---
Date of Service
Date of Service: October 05, 2024
Today's Communication
continue current antibiotics
recommend hospice
Assessment / Plan
Acute Hypoxemia Respiratory Failure - pulmonary fibrosis + PNA
Fever
- improved
Bacteremia with MRSA
- sustained 09/26-09/27
- hx TAVR
Leukocytosis
- improved
NANCY
-Abrupt increase today
Elevated BNP
Elevated ESR/CRP
HTN
Alzheimer's dementia
FTT and cachexia
Recommendations:
Acute hypoxemic respiratory failure and possible hospital acquired pneumonia
- CXR with fibrosis and possible new infiltrate
- sputum culture if able to obtain one (none so far)
- agree with cefepime
- fine to continue metronidazole
Blood cultures positive for MRSA, concerning given presence of TAVR.
c/w daptomycin. Hold statin while on daptomycin.
CK normal, note recent elevation earlier this admission - repeat monday
Follow repeat blood cultures.
Family has declined ALMA.
Continue to follow clinically.
Goals of care could be considered - patient with failure to thrive, cachexia, dementia at baseline now with progressive multisystem organ failure
����������������������������������������������������������
Chief Complaint
-: Leukocytosis and Bacteremia (MRSA)
Subjective / Review of Systems
afebrile
bp mild hypotension off of pressors
intermittent desaturations ongoing
Vital Signs / Physical Exam
Vital Signs
Vital Signs
Temp Pulse Resp BP Pulse Ox
98.7 F 76 29 109/76 93
10/05/24 08:05 10/05/24 02:00 10/05/24 02:00 10/05/24 02:00 10/05/24 08:42
Physical Exam
Constitutional: Acutely Ill and Chronically Ill
Cardiovascular: Regular Rate and S1/S2; Negative Murmur or Rub
Pulmonary: Coarse and Non Labored; Negative Symmetric, Wheezes or Rales
Gastrointestinal: Soft, Non Tender, Non Distended and Normal Bowel Sounds
Skin: Warm and Dry; Negative Rash or Jaundice
Objective Data
Lab Data
Lab Results
10/05/24 04:05
10/05/24 04:05
ESR 48 mm/hour (0-20) H 09/28/24 04:25
Estimated Creat Clear 17 ml/min 10/05/24 04:05
Lactic Acid 1.0 mmol/L (0.7-2.0) 09/26/24 04:14
Total Bilirubin 0.5 mg/dl (0.2-1.3) 09/28/24 13:18
AST 50 U/L (17-59) 09/28/24 13:18
ALT 32 U/L (0-50) 09/28/24 13:18
Alkaline Phosphatase 76 U/L (38-126) 09/28/24 13:18
C-Reactive Protein 21.40 mg/L (0.0-10.00) H 09/28/24 04:25
Most recent labs reviewed.
Micro Results:
09/27/24 14:25 Blood Culture - Final
Blood/Venous Staph aureus MRSA
Gram Stain - Final
09/30/24 07:42 Blood Culture - Final
Blood/Venous No Growth - Final Report
09/28/24 13:31 Blood Culture - Final
Blood/Venous No Growth - Final Report
09/26/24 04:14 Blood Culture - Final
Blood/Venous Staph aureus MRSA
Gram Stain - Final
09/26/24 07:53 Blood Culture - Final
Blood/Venous Staph aureus MRSA
Gram Stain - Final
09/27/24 04:24 Urine Culture - Final
Urine NO GROWTH
09/26/24 11:18 Influenza Types A & B ([facility]INEDU) - Final
Nasal Swab Negative for Influenza A & B, NAAT
Negative results must be combined with clinical observations
and patient history.
Nucleic Acid Amplification test (NAAT)performed on the
[employer] platform.
09/24/24 06:26 MRSA Screen - Final
Nose No Methicillin Resistant Staphylococcus aureus isolated.
Imaging:
09/26/2024 CXR chest (portable): Mild cardiomegaly noted. Median sternotomy wires and TAVR prostatic are unchanged. Moderate reticular interstitial thickening is seen bilaterally. Hazy opacity at the left lung base noted. Please see full
dictation for additional detail.
09/26/2024 CT abdomen/pelvis without contrast: No evidence of abdominal pelvic abscess or other acute pathology. Small bubbles of air within the right anterior lower abdominal wall likely resulting from subcutaneous injections. No body wall
abscess.
09/26/2024 CT chest: No evidence of PE or thoracic aortic dissection. Trace left pleural effusion. Changes of moderate interstitial fibrosis noted. Please see full dictation for additional detail.
Care Review
Plan reviewed with: Physician (Dr daniel - eileen)
[2024-10-05] MEDS: FLAGYL 500 MG 100 IV ×2 (10:04→21:15)
--- NOTE | 2024-10-05 13:48 | W.PN.HOSP.TC ---
Today's Communication/Plan
-
see note
Assessment / Plan
Assessment / Plan
CT Chest/abd/pel W Iv Cont
1. Trace left pleural effusion.
2. Mild T10 and T12 compression fractures, both new from 04/05/2023 and likely acute/subacute. Recommend correlation for any point tenderness in this region.
3. No other significant acute abnormality identified in the chest, abdomen or pelvis, as described above. Stable changes of chronic interstitial lung disease.
4. Moderate diffuse colonic stool burden may reflect constipation.'
CTA of the chest with intravenous contrast
1. No evidence of pulmonary embolism or thoracic aortic dissection.
2. Trace left pleural effusion, new compared to 09/23/2024.
3. Changes of moderate interstitial fibrosis, unchanged compared to multiple prior studies, including 04/05/2023.
4. Mild dilation of the ascending thoracic aorta, which measures 3.7 cm in greatest orthogonal dimension. No significant change compared to prior studies, including 04/05/2023.
5. Stable prominence of the main pulmonary trunk, suggestive of pulmonary arterial hypertension in the correct clinical setting.'
Noncontrast CT examination of the abdomen and pelvis
1. No evidence of abdominal pelvic abscess or other acute pathology.
2. Small bubbles of air within the right anterior lower abdominal wall, likely resulting from subcutaneous injections. No body wall abscess.
3. Small left pleural effusion, also seen on CTA of the chest. Bibasilar interstitial fibrosis.'
Echocardiogram
Normal left ventricular size and systolic function without regional wall motion abnormalities. LVEF 60-65%.
Right ventricle is mildly dilated with normal systolic function. Biatrial enlargement.
Bileaflet mitral valve prolapse with moderate mitral regurgitation. Well-seated TAVR with normal function (peak/mean 19/8 mmHg).
Mild to moderate tricuspid regurgitation. Estimated PASP 44 mmHg. Interatrial septum bowed to the right consistent with elevated left atrial pressure.
Chest x-ray 09/26/2024
left lower lobe pneumonia, nondisplaced fracture through the distal right clavicle

1. MRSA bacteremia
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
Septic shock - resolved
Acute hypoxic resp insufficiency - resolved
-Was on pressors and oxygen in ICU, now resolved
-Blood culture on 09/26 and 09/27 grew MRSA. Culture from 09/28 has been negative, continue follow
-Sacral wound pictures reviewed, no deep skin break.
-TTE did not show any valvular vegetation. As patient not a surgical candidate and increased risk, cardio recommended against ALMA
-Patient clinically will be treated as possible prosthetic valve endocarditis at this point. Right arm PICC line to be removed and changed to peripheral line. Will replace PICC line once bacterial clearance confirmed.
-Due to developing renal failure patient vancomycin changed to daptomycin. of note all vancomycin level checks were within normal limit.
2. Dementia with behavioral problems
Acute toxic metabolic encephalopathy
-Psychiatry evaluated patient and have appreciated
-At this point patient remains somnolent during daytime, awake during the night. Starting on Zyprexa 2 and half milligram at bedtime to help the situation.
-MRI brain on monday ruled out any septic emboli to brain
-Discussed nutrition support, patient family wants to try to see if patient can clear speech evaluation first. If not of attempt -limited due to high flow.
3. NANCY - worsening
AG Metabolic acidosis
-Creatinine unfortunately continues to up-trend and 2.8 today
-Vegas catheter was attempted to be placed x 2, no good urine drainage.
-Follow-up CT abdomen pelvis showing placement in penile urethra, Vegas was removed.
-A cystoscopic attempt to examine urethra and placed Vegas was planned although patient too hypoxic in the morning today and procedure was aborted
-Patient had approximately 1200 mL urine output over last 24 hours. Continue on Lasix drip
4. 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
Acute hypoxic resp failure
-Mild RV Dilation on September 2024 Echocardiogram
-Chest x-ray reviewed and may have chronic changes of pulmonary fibrosis
-Repeat chest x-ray showing changes of pulmonary edema vs Pneumonia on underlying pulmonary fibrosis
-Added cefepime 2 g every 24h / flagyl to cover gram-negative/anaerobes. Patient allergic to penicillin
-Patient was able to be weaned off 50% FiO2 in the morning
5. Mild rhabdomyolysis
History of mechanical fall
-Resolved at this point
6. Sacral stage II pressure injury
-Wound care nurse on board, wound pictures reviewed
-reported blood in underwear/toilet at admission
6. Left cephalic vein thrombus
-Superficial venous thrombus and ideally does not require to be treated
-Eliquis being held for now with hbg drifting down slowly.
7. Mild thrombocytopenia
-Secondary to MRSA bacteremia likely, monitor
8. Parox afib
-Eliquis on hold with downtrending hemoglobin
-BP limiting factor to start BB/CCB
-Patient going in and out of A-fib, continue conservative management
9. Hypernatremia
-Minimal due to decreased liquid intake and from lasix
Biatrial Enlargement
MVP with Moderate Mitral Regurgitation
Elevated left atrial pressure
History of TAVR
History of cardiac catheterization complicated by punctured pericardium
Coronary artery calcification, on aspirin and pravastatin
Multilevel neural foraminal osseous encroachment, greatest on the left from C3-C7, as per radiologist's report from CT of the Cervical Spine
Urinary Retention -Was on Flomax outpatient, but PCP had stopped it (as per nurse on 09/27/24)
Macrocytic Anemia
Hematuria on Urinalysis
Coronary Artery Calcification
Essential Hypertension
Hyperlipidemia
BPH
History of Total knee arthroplasty
History of likely osteomyelitis of right fifth toe/surrounding cellulitis
Underweight
DVT Prophylaxis: eliquis
Code Status: DNR
10/03 goal of care discussion held with patient nephew over the phone. I will clarify if patient renal failure continue to worsening patient likely not to survive. Next 24 to 48 hours will be critical for patient, nephew understands and all
questions answered.
10/04 Despite being on lasix drip patient does not have much urine output - poor prognostic sign and further metabolic derangements to follow. Contacted nephew in morning - went through , will try again to discuss GOC
10/05 repeat GOC discussion held on nephew hopeful that patient will improve in light of increasing urine output. Nutrition goals discussed and family wants to try feeding patient orally before attempting [place]. Goal remains of comfort care if
at any point have rapid clinical deterioration.
Total critical care time 36 mins . Total critical care time documented does not include time spent on separately billed procedures or the services of residents, students, nurses or physician assistants. I personally saw and examined the patient. I
have reviewed all diagnostic interpretations and treatment plans as written. I was present for the aguilera portions of any procedures performed and the inclusive time noted in any critical care statement. Critical care time includes patient management
by me, time spent at the patients bedside, time to review lab and imaging results, discussing patient care, documentation in the medical record, and time spent with the family or caregiver.
Anticipated Discharge: 24 - 48 hours
Subjective/Interval History
-
Date of Service: October 05, 2024
Patient remains sedated, although waking up on verbal cue
Oxygen recommend stable on high flow
Afebrile in the night
Goes in and out of A-fib
Objective Data
-
Labs:
Laboratory Results
10/05/24
04:05
WBC 12.4 H
Hgb 9.3 L
Hct 28.6 L
Plt Count 227
Sodium 146 H
Potassium 5.0
Chloride 113 H
Carbon Dioxide 20 L
BUN 172 H*
Creatinine 2.9 H
Glucose 103 H
Calcium 8.5
Vital Signs:
Vital Signs
Temp Pulse Resp BP Pulse Ox
98.1 F 76 29 109/76 100
10/05/24 11:50 10/05/24 02:00 10/05/24 02:00 10/05/24 02:00 10/05/24 11:45
I&O
10/04/24 10/05/24 10/06/24
06:59 06:59 06:59
Output Total 1200 / 1200
Balance -1200 / -1200
Review of Systems
-
Unable to obtain full review of systems at this time due to: Acuity
Physical Exam
-
General: Comfortable
HEENT: Oxygen (Highflow 80%)
Respiratory: Crackles
Cardiac: S1/S2, Irregular Rhythm and Tachycardic; Negative Murmur or Rub
GI: Soft, Nontender and Nondistended
Musculoskeletal: No Edema
Neuro: Awake and No Motor Deficits; Negative Alert or Oriented
Psych: Calm
--- NOTE | 2024-10-05 14:30 | PTOTSP ---
Speech Language Pathology
Pt seen for dysphagia tx after new speech orders placed post transfer to higher level of care. On HFNC 50LPM, Fi02 65%. Pt very drowsy with intermittent brief eye opening. P.O. trials of ice chips provided. Increased WOB noted with ice chips
with desat as low as 85%. Respiratory status does not currently support P.O. intake. Further P.O. trials deferred given respiratory status, drowsiness, and mentation. Pt is at a high risk for aspiration.
Recommend:
(1) NPO
(2) Oral care 4x/day with suctioning as needed
(3) Non-oral meds
(4) Allow ice chips sparingly post oral care given supervision per Aspiration Risk Hydration Protocol (ARHP)
(5) BATTERY ASSEMBLER to continue to follow
[2024-10-05] MEDS: STERILE WATER FOR INJECTION 10 ML IV (14:41)
[2024-10-05] MEDS: MAXIPIME 2000 MG IV (14:42)
--- NOTE | 2024-10-05 15:02 | PTCARENOTE ---
Patient in A-fib. Order for PRN Lopressor ordered for HR >120. At this time, unable to give due to low BP of 98/73 (82) with hold parameter to not give with SBP <110. Will continue to assess BP and give when appropriate if still in A-fib.
[2024-10-05 15:10] LABS: Urine Albumin Trace (Neg - Trace); Urine Bilirubin Negative (Negative); Urine Character Clear (Clear); Urine Color Yellow; Urine Glucose Negative (Negative); Urine Ketone Negative (Negative); Urine Leukocyte Trace (Negative); Urine Nitrite Negative (Negative); Urine Occult Blood 4+ (Negative); Urine Urobilinogen Negative (Neg - 1+)
[2024-10-05 15:30] LABS: Urine Amorphous Seen; Urine Mucus Moderate; Urine Squamous Cell 16-20 /LPF (Few)
[2024-10-05 15:31] LABS: Urine Red Blood Cell >100 /HPF (0-2)
[2024-10-05 15:32] LABS: Urine Bacteria Moderate (Negative); Urine White Cell 30-40 /HPF (0-5)
--- NOTE | 2024-10-05 16:17 | CHAP ---
Addendum entered by Sami Pena 10/06/24 13:14:
Fr. Flores of [facility] came to anoint Milly late afternoon on 10.05.24, and said, 'He is a great man.'
Original Note:
Milly's extended family members, Gwendolyn and Antonia, requested Sacrament of the Sick for him. Engineer Exhauster called and texted the [facility] oil and gas field technician with this request, then prayed with Gwendolyn and Antonia, commending Milly to God. We asked blessings
of peace for all, and gave thanks for Milly's life and love. Assurance given of our on-going availability.
[2024-10-05] MEDS: LOPRESSOR 5 MG IV (21:21)
[2024-10-06] VITALS (43 sets, daily range): BP systolic 68–153; BP diastolic 50–125; BMI 16.7
[2024-10-06] MEDS: LASIX 50 IV (02:04)
[2024-10-06] MEDS: MORPHINE SULFATE 1 MG IV ×2 (02:07→03:37)
--- NOTE | 2024-10-06 02:46 | PTCARENOTE ---
Pt restless, tachypneic, and tachycardic. PRN Morphine administered as ordered. CHG bath provided. Pt inc of large amount of brown stool, logan care provided. New sacral dressing in place. New #[id number] applied. Pt repositioned per comfort. Lasix gtt
infusing as ordered. Will continue to monitor.
[2024-10-06] MEDS: LEVOPHED 250 IV (03:32)
[2024-10-06] MEDS: LOPRESSOR 5 MG IV (03:37)
[2024-10-06 04:47] LABS: Hematocrit 28.9 % (39.0-52.0); Mean Corp Hgb Conc. 34.6 g/dL (33.0-37.0); Mean Corpuscular Hgb 33.1 pg (27.0-31.0); Mean Corpuscular Volume 95.7 fL (80.0-94.0); Mean Platelet Volume 10.3 fL (7.4-10.4); Platelet Count 256 10^3/uL (130-400); Red Blood Cell Count 3.02 10^6/uL (4.70-6.10); Red Cell Dist. Width 13.2 % (11.5-14.5); White Blood Cell Count 11.7 10^3/uL (4.8-10.8)
[2024-10-06 06:19] LABS: Blood Urea Nitrogen 177 mg/dl (9-20); Calcium 8.6 mg/dl (8.4-10.2); Carbon Dioxide 25 mmol/L (22-30); Chloride 112 mmol/L (98-107); Estimated Creatinine Clearance 14 ml/min; Glucose 106 mg/dl (70-99); Magnesium 3.1 mg/dl (1.6-2.3); Potassium 4.2 mmol/L (3.5-5.1); Sodium 153 mmol/L (135-145); eGFR 20.23
--- NOTE | 2024-10-06 06:49 | PTCARENOTE ---
Pt remains tachycardic, HR in the 120's-140's in Afib. PRN Lopressor and PRN Morphine administered as ordered with no response. Levophed infusing as ordered to keep MAP>65. Lasix gtt infusing as ordered. Will continue to monitor.
[2024-10-06] MEDS: MIRALAX PO (07:45)
--- NOTE | 2024-10-06 10:43 | W.PN.ID1 ---
Date of Service
Date of Service: October 06, 2024
Today's Communication
c/w current antibiotics
Assessment / Plan
Acute Hypoxemia Respiratory Failure - pulmonary fibrosis + PNA
Fever
- improved
Bacteremia with MRSA
- sustained 09/26-09/27
- hx TAVR
Leukocytosis
- improved
NANCY
-Abrupt increase today
Elevated BNP
Elevated ESR/CRP
HTN
Alzheimer's dementia
FTT and cachexia
Recommendations:
Acute hypoxemic respiratory failure and possible hospital acquired pneumonia
- CXR with fibrosis and possible new infiltrate
- sputum culture if able to obtain one (none so far)
- agree with cefepime
- fine to continue metronidazole
Blood cultures positive for MRSA, concerning given presence of TAVR.
c/w daptomycin. Hold statin while on daptomycin.
CK normal, note recent elevation earlier this admission - repeat monday
Follow repeat blood cultures.
Family has declined ALMA.
Continue to follow clinically.
Prognosis guarded.
����������������������������������������������������������
Chief Complaint
-: Leukocytosis and Bacteremia (MRSA)
Subjective / Review of Systems
afebrile
now requiring low dose of pressors
declining FIO2 requirements
diarrhea noted
Vital Signs / Physical Exam
Vital Signs
Vital Signs
Temp Pulse Resp BP Pulse Ox
98.2 F 82 21 125/78 98
10/06/24 07:00 10/06/24 10:00 10/06/24 10:00 10/06/24 10:00 10/06/24 10:30
Physical Exam
Constitutional: Acutely Ill and Chronically Ill
Cardiovascular: Regular Rate and S1/S2; Negative Murmur or Rub
Pulmonary: Symmetric, Coarse and Non Labored; Negative Wheezes or Rales
Gastrointestinal: Soft, Non Tender, Non Distended and Normal Bowel Sounds
Skin: Warm and Dry; Negative Rash or Jaundice
Objective Data
Lab Data
Lab Results
10/06/24 04:19
10/06/24 04:19
ESR 48 mm/hour (0-20) H 09/28/24 04:25
Estimated Creat Clear 14 ml/min 10/06/24 04:19
Lactic Acid 1.0 mmol/L (0.7-2.0) 09/26/24 04:14
Total Bilirubin 0.5 mg/dl (0.2-1.3) 09/28/24 13:18
AST 50 U/L (17-59) 09/28/24 13:18
ALT 32 U/L (0-50) 09/28/24 13:18
Alkaline Phosphatase 76 U/L (38-126) 09/28/24 13:18
C-Reactive Protein 21.40 mg/L (0.0-10.00) H 09/28/24 04:25
Most recent labs reviewed.
Micro Results:
09/27/24 14:25 Blood Culture - Final
Blood/Venous Staph aureus MRSA
Gram Stain - Final
09/30/24 07:42 Blood Culture - Final
Blood/Venous No Growth - Final Report
09/28/24 13:31 Blood Culture - Final
Blood/Venous No Growth - Final Report
09/26/24 04:14 Blood Culture - Final
Blood/Venous Staph aureus MRSA
Gram Stain - Final
09/26/24 07:53 Blood Culture - Final
Blood/Venous Staph aureus MRSA
Gram Stain - Final
09/27/24 04:24 Urine Culture - Final
Urine NO GROWTH
09/26/24 11:18 Influenza Types A & B (CHINEDU) - Final
Nasal Swab Negative for Influenza A & B, NAAT
Negative results must be combined with clinical observations
and patient history.
Nucleic Acid Amplification test (NAAT)performed on the
[employer] platform.
09/24/24 06:26 MRSA Screen - Final
Nose No Methicillin Resistant Staphylococcus aureus isolated.
Imaging:
09/26/2024 CXR chest (portable): Mild cardiomegaly noted. Median sternotomy wires and TAVR prostatic are unchanged. Moderate reticular interstitial thickening is seen bilaterally. Hazy opacity at the left lung base noted. Please see full
dictation for additional detail.
09/26/2024 CT abdomen/pelvis without contrast: No evidence of abdominal pelvic abscess or other acute pathology. Small bubbles of air within the right anterior lower abdominal wall likely resulting from subcutaneous injections. No body wall
abscess.
09/26/2024 CT chest: No evidence of PE or thoracic aortic dissection. Trace left pleural effusion. Changes of moderate interstitial fibrosis noted. Please see full dictation for additional detail.
[2024-10-06] MEDS: FLAGYL 500 MG 100 IV (11:08)
--- NOTE | 2024-10-06 13:58 | W.PN.HOSP.TC ---
Today's Communication/Plan
-
comfort care once family ready
Assessment / Plan
Assessment / Plan
10/06
Goal of care discussed send done with POA at bedside
At this point patient continues to have dual organ failure without any signs of improvement
Patient have developed minimal shock last night and required vasopressor support through the night as well
Major electrolyte imbalances setting in.
Patient is appropriate for transition to comfort care at this point, POA understands and in agreement, needs some time before stopping supportive measures

CT Chest/abd/pel W Iv Cont
1. Trace left pleural effusion.
2. Mild T10 and T12 compression fractures, both new from 04/05/2023 and likely acute/subacute. Recommend correlation for any point tenderness in this region.
3. No other significant acute abnormality identified in the chest, abdomen or pelvis, as described above. Stable changes of chronic interstitial lung disease.
4. Moderate diffuse colonic stool burden may reflect constipation.'
CTA of the chest with intravenous contrast
1. No evidence of pulmonary embolism or thoracic aortic dissection.
2. Trace left pleural effusion, new compared to 09/23/2024.
3. Changes of moderate interstitial fibrosis, unchanged compared to multiple prior studies, including 04/05/2023.
4. Mild dilation of the ascending thoracic aorta, which measures 3.7 cm in greatest orthogonal dimension. No significant change compared to prior studies, including 04/05/2023.
5. Stable prominence of the main pulmonary trunk, suggestive of pulmonary arterial hypertension in the correct clinical setting.'
Noncontrast CT examination of the abdomen and pelvis
1. No evidence of abdominal pelvic abscess or other acute pathology.
2. Small bubbles of air within the right anterior lower abdominal wall, likely resulting from subcutaneous injections. No body wall abscess.
3. Small left pleural effusion, also seen on CTA of the chest. Bibasilar interstitial fibrosis.'
Echocardiogram
Normal left ventricular size and systolic function without regional wall motion abnormalities. LVEF 60-65%.
Right ventricle is mildly dilated with normal systolic function. Biatrial enlargement.
Bileaflet mitral valve prolapse with moderate mitral regurgitation. Well-seated TAVR with normal function (peak/mean 19/8 mmHg).
Mild to moderate tricuspid regurgitation. Estimated PASP 44 mmHg. Interatrial septum bowed to the right consistent with elevated left atrial pressure.
Chest x-ray 09/26/2024
left lower lobe pneumonia, nondisplaced fracture through the distal right clavicle

1. MRSA bacteremia
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
Septic shock - resolved
Acute hypoxic resp insufficiency - resolved
-Was on pressors and oxygen in ICU, now resolved
-Blood culture on 09/26 and 09/27 grew MRSA. Culture from 09/28 has been negative, continue follow
-Sacral wound pictures reviewed, no deep skin break.
-TTE did not show any valvular vegetation. As patient not a surgical candidate and increased risk, cardio recommended against ALMA
-Patient clinically will be treated as possible prosthetic valve endocarditis at this point. Right arm PICC line to be removed and changed to peripheral line. Will replace PICC line once bacterial clearance confirmed.
-Due to developing renal failure patient vancomycin changed to daptomycin. of note all vancomycin level checks were within normal limit.
-Patient developing again circulatory shock due to underlying organ failure. required to be started on a small dose of Levophed
2. Dementia with behavioral problems
Acute toxic metabolic encephalopathy -worsening with uremia/hypernatremia
-Psychiatry evaluated patient and have appreciated
-At this point patient remains somnolent during daytime, awake during the night. Starting on Zyprexa 2 and half milligram at bedtime to help the situation.
-MRI brain on Monday ruled out any septic emboli to brain
-Family hesitant to start patient on Dobbhoff feed yesterday. Failed swallow evaluation
3. NANCY - worsening
AG Metabolic acidosis
Hypernatremia
-Creatinine unfortunately continues to up-trend and 2.8 today
-Vegas catheter was attempted to be placed x 2, no good urine drainage.
-Follow-up CT abdomen pelvis showing placement in penile urethra, Vegas was removed.
-A cystoscopic attempt to examine urethra and placed Vegas was planned although patient too hypoxic in the morning today and procedure was aborted
-Patient have UOP of 1400. Unfortunately getting hyponatremic with Lasix drip
4. 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
Acute hypoxic resp failure
-Mild RV Dilation on September 2024 Echocardiogram
-Chest x-ray reviewed and may have chronic changes of pulmonary fibrosis
-Repeat chest x-ray showing changes of pulmonary edema vs Pneumonia on underlying pulmonary fibrosis
-Added cefepime 2 g every 24h / flagyl to cover gram-negative/anaerobes. Patient allergic to penicillin
5. Mild rhabdomyolysis
History of mechanical fall
-Resolved at this point
6. Sacral stage II pressure injury
-Wound care nurse on board, wound pictures reviewed
-reported blood in underwear/toilet at admission
6. Left cephalic vein thrombus
-Superficial venous thrombus and ideally does not require to be treated
-Eliquis being held for now with hbg drifting down slowly.
7. Mild thrombocytopenia
-Secondary to MRSA bacteremia likely, monitor
8. Parox afib
-Eliquis on hold with downtrending hemoglobin
-BP limiting factor to start BB/CCB
-Patient going in and out of A-fib, continue conservative management
9. Hypernatremia
-Worsening and sodium of 153 today
-Minimal due to decreased liquid intake and from lasix
Biatrial Enlargement
MVP with Moderate Mitral Regurgitation
Elevated left atrial pressure
History of TAVR
History of cardiac catheterization complicated by punctured pericardium
Coronary artery calcification, on aspirin and pravastatin
Multilevel neural foraminal osseous encroachment, greatest on the left from C3-C7, as per radiologist's report from CT of the Cervical Spine
Urinary Retention -Was on Flomax outpatient, but PCP had stopped it (as per nurse on 09/27/24)
Macrocytic Anemia
Hematuria on Urinalysis
Coronary Artery Calcification
Essential Hypertension
Hyperlipidemia
BPH
History of Total knee arthroplasty
History of likely osteomyelitis of right fifth toe/surrounding cellulitis
Underweight
DVT Prophylaxis: scd
Code Status: DNR
10/03 goal of care discussion held with patient nephew over the phone. I will clarify if patient renal failure continue to worsening patient likely not to survive. Next 24 to 48 hours will be critical for patient, nephew understands and all
questions answered.
10/04 Despite being on lasix drip patient does not have much urine output - poor prognostic sign and further metabolic derangements to follow. Contacted nephew in morning - went through , will try again to discuss GOC
10/05 repeat GOC discussion held on nephew hopeful that patient will improve in light of increasing urine output. Nutrition goals discussed and family wants to try feeding patient orally before attempting Dobbhoff. Goal remains of comfort care if
at any point have rapid clinical deterioration.

Anticipated Discharge: 24 - 48 hours
Subjective/Interval History
-
Date of Service: October 06, 2024
patient more encephalopathic today
remains afebrile
Objective Data
-
Labs:
Laboratory Results
10/06/24
04:19
WBC 11.7 H
Hgb 10.0 L
Hct 28.9 L
Plt Count 256
Sodium 153 H
Potassium 4.2
Chloride 112 H
Carbon Dioxide 25
BUN 177 H*
Creatinine 3.0 H
Glucose 106 H
Calcium 8.6
Vital Signs:
Vital Signs
Temp Pulse Resp BP Pulse Ox
97.6 F 70 13 116/79 97
10/06/24 11:46 10/06/24 12:00 10/06/24 12:00 10/06/24 12:00 10/06/24 12:00
I&O
10/05/24 10/06/24 10/07/24
06:59 06:59 06:59
Intake Total 184 / 184
Output Total 1200 / 1200 1425 / 1425
Balance -1200 / -1200 -1241 / -1241
Review of Systems
-
Unable to obtain full review of systems at this time due to: Acuity
Physical Exam
-
General: Comfortable
HEENT: Oxygen (Highflow 80%)
Respiratory: Crackles
Cardiac: S1/S2, Irregular Rhythm and Tachycardic; Negative Murmur or Rub
GI: Soft, Nontender and Nondistended
Musculoskeletal: No Edema
Neuro: Awake and No Motor Deficits; Negative Alert or Oriented
Psych: Calm
[2024-10-06] MEDS: MAXIPIME 2000 MG IV (14:00)
[2024-10-06] MEDS: STERILE WATER FOR INJECTION 10 ML IV (14:01)
[2024-10-06] MEDS: CUBICIN 12 MG IV (14:01)
--- NOTE | 2024-10-06 14:41 | PTCARENOTE ---
Addendum entered by Roland Dominguez RN 10/06/24 18:39:
Patient made comfort care. Patient comfortable. Q2 turns, weaning oxygen at a rate to maintain comfort, currently on hiflo at 20L 40%, sats 90%. Will continue to closely monitor.
Original Note:
Patient oriented to self, short answers to questions when aroused, lethargic. Family currently at bedside. Weaned off of Levophed, HR converted to NSR at 0800, VSS. Patient comfortable. 96% on hiflo. Family discussion had with MD Galloway with plans
for comfort care once family ready. Continuing to closely monitor.
--- NOTE | 2024-10-06 14:55 | CHAP ---
Addendum entered by Sami Pena 10/06/24 15:31:
Prayer blanket also provided.
Original Note:
Milly was sleeping, with nephew Wally and his present. Certified Histologic Technician assured them that [facility]. [facility] of [facility] anointed Milly yesterday. 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 He has been like a
grandfather to their children. Emotional and spiritual support provided, with assurance of our on-going availability.
--- NOTE | 2024-10-06 14:56 | CM ---
Reviewed the chart notes. CM consult received for hospice. Referral for Hospice sent via [facility]. Comfort measures have been initiated. CM continues to be available to patient/family.
Plan: Comfort Care.
--- NOTE | 2024-10-06 16:12 | HOSPNOTE ---
Hospice referral received . Will follow up on 10/07/24
--- NOTE | 2024-10-06 21:34 | PTCARENOTE ---
pt comfort care, m/s level of care. report given to 2N RN, pt transferred with all belongings without issues.
--- NOTE | 2024-10-07 07:07 | W.PN.HOSP.TC ---
Today's Communication/Plan
-
Continue Comfort Care
I spoke with patient's nephew Wally today, and he is in agreement with current Comfort Care measures
Assessment / Plan
Assessment / Plan
Physical Exam
General: Comfortable
HEENT: Normocephalic. Oxygen
Respiratory: Crackles
Cardiac: S1/S2, Irregular Rhythm
GI: Soft, Nontender and Nondistended. Positive bowel sounds.
Musculoskeletal: No Edema
Neuro: Awake and No Motor Deficits
Psych: Calm

10/06
Goal of care discussed send done with POA at bedside
At this point patient continues to have dual organ failure without any signs of improvement
Patient have developed minimal shock last night and required vasopressor support through the night as well
Major electrolyte imbalances setting in.
Patient is appropriate for transition to comfort care at this point, POA understands and in agreement, needs some time before stopping supportive measures

CT Chest/abd/pel W Iv Cont
1. Trace left pleural effusion.
2. Mild T10 and T12 compression fractures, both new from 04/05/2023 and likely acute/subacute. Recommend correlation for any point tenderness in this region.
3. No other significant acute abnormality identified in the chest, abdomen or pelvis, as described above. Stable changes of chronic interstitial lung disease.
4. Moderate diffuse colonic stool burden may reflect constipation.'
CTA of the chest with intravenous contrast
1. No evidence of pulmonary embolism or thoracic aortic dissection.
2. Trace left pleural effusion, new compared to 09/23/2024.
3. Changes of moderate interstitial fibrosis, unchanged compared to multiple prior studies, including 04/05/2023.
4. Mild dilation of the ascending thoracic aorta, which measures 3.7 cm in greatest orthogonal dimension. No significant change compared to prior studies, including 04/05/2023.
5. Stable prominence of the main pulmonary trunk, suggestive of pulmonary arterial hypertension in the correct clinical setting.'
Noncontrast CT examination of the abdomen and pelvis
1. No evidence of abdominal pelvic abscess or other acute pathology.
2. Small bubbles of air within the right anterior lower abdominal wall, likely resulting from subcutaneous injections. No body wall abscess.
3. Small left pleural effusion, also seen on CTA of the chest. Bibasilar interstitial fibrosis.'
Echocardiogram
Normal left ventricular size and systolic function without regional wall motion abnormalities. LVEF 60-65%.
Right ventricle is mildly dilated with normal systolic function. Biatrial enlargement.
Bileaflet mitral valve prolapse with moderate mitral regurgitation. Well-seated TAVR with normal function (peak/mean 19/8 mmHg).
Mild to moderate tricuspid regurgitation. Estimated PASP 44 mmHg. Interatrial septum bowed to the right consistent with elevated left atrial pressure.
Chest x-ray 09/26/2024
left lower lobe pneumonia, nondisplaced fracture through the distal right clavicle

MRSA bacteremia
Dementia with behavioral problems
NANCY - worsening
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
Acute hypoxic resp failure
Mild RV Dilation on September 2024 Echocardiogram
Mild rhabdomyolysis
History of mechanical fall
Sacral stage II pressure injury
Left cephalic vein thrombus
Mild thrombocytopenia
Paroxysmal Atrial Fibrillation
Hypernatremia
Biatrial Enlargement
MVP with Moderate Mitral Regurgitation
Elevated left atrial pressure
History of TAVR
History of cardiac catheterization complicated by punctured pericardium
Coronary artery calcification, on aspirin and pravastatin
Multilevel neural foraminal osseous encroachment, greatest on the left from C3-C7, as per radiologist's report from CT of the Cervical Spine
Urinary Retention -Was on Flomax outpatient, but PCP had stopped it (as per nurse on 09/27/24)
Macrocytic Anemia
Hematuria on Urinalysis
Coronary Artery Calcification
Essential Hypertension
Hyperlipidemia
BPH
History of Total knee arthroplasty
History of likely osteomyelitis of right fifth toe/surrounding cellulitis
Underweight
-I called patient nephew Wally today and discussed patient's current status and comfort care with him. Wally expressed understanding of and agreed with current Comfort Care measures. I explained to Wally the comfort medications patient
is getting. All questions and concerns were answered to satisfaction.
Anticipated Discharge: > 48 hours
Subjective/Interval History
-
Date of Service: October 07, 2024
Patient was seen and examined. He mumbled some words when called, appeared to be comfortable.
Objective Data
-
Vital Signs:
Vital Signs
Temp Pulse Resp BP Pulse Ox
97.9 F 75 20 125/78 96
10/06/24 23:03 10/06/24 23:03 10/06/24 23:03 10/06/24 23:03 10/06/24 23:07
I&O
10/06/24 10/07/24 10/08/24
06:59 06:59 06:59
Intake Total 184 / 184
Output Total 1425 / 1425 1325 / 1325
Balance -1241 / -1241 -1325 / -1325
[2024-10-07 07:30] VITALS: BP 120/64
[2024-10-07] MEDS: ATIVAN 1 MG IV ×2 (07:55→10:26)
[2024-10-07] MEDS: NSS (PRESERVATIVE FREE) 0.5 ML IV (07:56)
[2024-10-07] MEDS: STERILE WATER FOR INJECTION IV (08:16)
--- NOTE | 2024-10-07 08:41 | PTOTSP ---
CHART REVIEWED AND SPOKE WITH RN. PATIENT NOW COMFORT CARE AND THERAPY IS NO LONGER INDICATED AT THIS TIME. WILL DISCHARGE FROM THERAPY SERVICES.
[2024-10-07] MEDS: DILAUDID 0.25 MG IV ×2 (10:26→15:41)
--- NOTE | 2024-10-07 13:58 | CM ---
Spoke with family bedside.
Remains on comfort care.
Hospice nurse in to evaluate today.
Plan: continue comfort measures
--- NOTE | 2024-10-07 14:16 | HOSPNOTE ---
Met with patient's nephew, nephew's and their daughter at bedside. Patient appears very comfortable, no unmanaged symptoms at this time, long discussion with family about goals of care, signs of imminent , planning. Nephew shares
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 Provided listening ear and
encouraged family to call Hospice with any additional questions or concerns. Offered bereavement services. cm and hospice team updated
--- NOTE | 2024-10-07 16:20 | W.PN.ID1 ---
Date of Service
Date of Service: October 07, 2024
Today's Communication
Sign off.
Assessment / Plan
Acute Hypoxemia Respiratory Failure - pulmonary fibrosis + PNA
Fever
- improved
Bacteremia with MRSA
- sustained 09/26-09/27
- hx TAVR
Leukocytosis
- improved
NANCY
-Abrupt increase today
Elevated BNP
Elevated ESR/CRP
HTN
Alzheimer's dementia
FTT and cachexia
Recommendations:
Chart reviewed, and have spoken with patient's nephew present at the bedside.
Patient now comfort measures and appears comfortable.
Nothing further to add from a Infectious Diseases standpoint.
Will sign off and see again at your request.
����������������������������������������������������������
Chief Complaint
-: Leukocytosis and Bacteremia (MRSA)
Vital Signs / Physical Exam
Vital Signs
Vital Signs
Temp Pulse Resp BP Pulse Ox
97.7 F 35 16 120/64 90
10/07/24 07:30 10/07/24 07:30 10/07/24 07:30 10/07/24 07:30 10/07/24 07:30
Physical Exam
Constitutional: Comfortable, Chronically Ill and Cachetic
Pulmonary: Other (mildly labored)
Psychological: Calm
Objective Data
Lab Data
Lab Results
10/06/24 04:19
10/06/24 04:19
ESR 48 mm/hour (0-20) H 09/28/24 04:25
Estimated Creat Clear 14 ml/min 10/06/24 04:19
Lactic Acid 1.0 mmol/L (0.7-2.0) 09/26/24 04:14
Total Bilirubin 0.5 mg/dl (0.2-1.3) 09/28/24 13:18
AST 50 U/L (17-59) 09/28/24 13:18
ALT 32 U/L (0-50) 09/28/24 13:18
Alkaline Phosphatase 76 U/L (38-126) 09/28/24 13:18
C-Reactive Protein 21.40 mg/L (0.0-10.00) H 09/28/24 04:25
Most recent labs reviewed.
Micro Results:
09/27/24 14:25 Blood Culture - Final
Blood/Venous Staph aureus MRSA
Gram Stain - Final
09/30/24 07:42 Blood Culture - Final
Blood/Venous No Growth - Final Report
09/28/24 13:31 Blood Culture - Final
Blood/Venous No Growth - Final Report
09/26/24 04:14 Blood Culture - Final
Blood/Venous Staph aureus MRSA
Gram Stain - Final
09/26/24 07:53 Blood Culture - Final
Blood/Venous Staph aureus MRSA
Gram Stain - Final
09/27/24 04:24 Urine Culture - Final
Urine NO GROWTH
09/26/24 11:18 Influenza Types A & B ([facility]) - Final
Nasal Swab Negative for Influenza A & B, NAAT
Negative results must be combined with clinical observations
and patient history.
Nucleic Acid Amplification test (NAAT)performed on the
[employer] NOW platform.
09/24/24 06:26 MRSA Screen - Final
Nose No Methicillin Resistant Staphylococcus aureus isolated.
Imaging:
09/26/2024 CXR chest (portable): Mild cardiomegaly noted. Median sternotomy wires and TAVR prostatic are unchanged. Moderate reticular interstitial thickening is seen bilaterally. Hazy opacity at the left lung base noted. Please see full
dictation for additional detail.
09/26/2024 CT abdomen/pelvis without contrast: No evidence of abdominal pelvic abscess or other acute pathology. Small bubbles of air within the right anterior lower abdominal wall likely resulting from subcutaneous injections. No body wall
abscess.
09/26/2024 CT chest: No evidence of PE or thoracic aortic dissection. Trace left pleural effusion. Changes of moderate interstitial fibrosis noted. Please see full dictation for additional detail.
Care Review
Plan reviewed with: Nurse
--- NOTE | 2024-10-07 18:15 | W.PN.DEATH ---
Pronouncement of
-
Called to see patient to pronounce.
No spontaneous heart tones or respirations noted.
Patient not responsive to verbal stimuli.
Patient is pronounced .
Time of : 18:10
Date of : 10/07/24
Cause of : Acute Hypoxic Respiratory Failure
Family Notified: Yes
--- NOTE | 2024-10-07 18:25 | PTCARENOTE ---
Patient has no heart tones upon auscultation. made aware.
== END 2024-10-07 18:10 | disposition expired | DRG 288 ==
LOC: 2 NORTH 18:19
PROVIDERS: Hospitalist; Nurse Practitioner Acute Care; Nurse Practitioner Family; Physician Assistant Medical; Registered Nurse; Student in an Organized Health Care Education/Training Program; ADMITTING PHYSICIAN Hospitalist; ATTENDING PHYSICIAN Hospitalist; CONSULT PHYSICIAN Internal Medicine; CONSULT PHYSICIAN Internal Medicine Infectious Disease; CONSULT PHYSICIAN Student in an Organized Health Care Education/Training Program; CONSULT PHYSICIAN Surgery; EMERGENCY PHYSICIAN Emergency Medicine; FAMILY PHYSICIAN Internal Medicine; OTHER PHYSICIAN Internal Medicine; OTHER PHYSICIAN Internal Medicine Hematology & Oncology; OTHER PHYSICIAN Psychiatry & Neurology Neurology; OTHER PHYSICIAN Psychiatry & Neurology Psychiatry
DX: I33.0 Acute and subacute infective endocarditis (principal); J18.9 Pneumonia, unspecified organism; L89.153 Pressure ulcer of sacral region, stage 3; J96.01 Acute respiratory failure with hypoxia; M62.82 Rhabdomyolysis; F02.82 Dementia in other diseases classified elsewhere, unspecified severity, with psychotic disturbance; N17.9 Acute kidney failure, unspecified; R64 Cachexia; Z68.1 Body mass index [BMI] 19.9 or less, adult; G93.40 Encephalopathy, unspecified; E87.1 Hypo-osmolality and hyponatremia; E44.0 Moderate protein-calorie malnutrition; Z60.2 Problems related to living alone; G30.9 Alzheimer's disease, unspecified; I25.10 Atherosclerotic heart disease of native coronary artery without angina pectoris; N40.0 Benign prostatic hyperplasia without lower urinary tract symptoms; Z66 Do not resuscitate; J84.112 Idiopathic pulmonary fibrosis; I10 Essential (primary) hypertension; Z11.52 Encounter for screening for COVID-19
CPT/HCPCS: 93308; 36600; 70450; 70551; 71045; 71260; 71275; 72125; 73030; 73060; 73090; 73110; 73564; 74176; 74177; 80048; 80053; 80202; 81003; 81015; 82550; 82570; 82607; 82728; 82746; 82784; 82805; 82962; 83010; 83521; 83540; 83550; 83605; 83615; 83735; 83880; 83935; 84100; 84155; 84165; 84300; 84443; 85025; 85027; 85045; 85379; 85384; 85652; 86022; 86140; 86160; 86334; 87040; 87070; 87086; 87147; 87150; 87186; 87205; 87502; 87811; 92507; 92523; 92526; 92610; 93005; 93321; 93325; 93970; 93971; 96360; 97112; 97116; 97163; 97167; 97530; 97535; 99285; J0878; Q9967